=== PATIENT | female | born 1940 | race Caucasian/White ===

== ENCOUNTER 2017-11-19 09:25 | Day surgery (SDC) | payer MEDICARE, SELFPAY ==
[2017-11-19 09:49] VITALS: BP 111/73; PULSE 85; RESP 16; TEMP 36.6; O2SAT 100; BMI 22.6
--- NOTE | 2017-11-19 10:39 | PCM.HP.STD ---
Problem List (1) History of colon polyps Status: Acute History of Present Illness Date of Admission: 11/19/17 The patient is a 77 year old F with a history of colon polyps. Her last colonoscopy was greater than 5 years ago. She presents today for colonoscopy. Past Medical History Allergies narcotics Allergy (Uncoded 11/13/17 09:28) Nausea surgical tape Adverse Reaction (Uncoded 11/13/17 09:28) tears skin Home Medications: Ambulatory Orders Medication Instructions Recorded Atorvastatin Calcium [Lipitor] 10 mg PO QHS 11/13/17 Calcium Carbonate/Vitamin D3 2 each PO DAILY 11/13/17 [Calcium 600 with Vit D Chew Tb] CycloSPORINE Ophthalmic [Restasis 1 drop EACH EYE BID 11/13/17 Ophthalmic] Fish Oil/Dha/Epa [Fish Oil 1,200 1 each PO DAILY 11/13/17 mg Fish Oil] Fresh Coat 1 drop EACHEYE 4X/DAY 11/13/17 Multivit with Calcium,Iron,Min 1 each PO DAILY 11/13/17 [Multiple Vitamins For Women] Naproxen Sodium [Aleve] 220 mg PO DAILY 11/13/17 Smoking Status: Never smoker - *Family History Maternal History Items: No pertinent history Review of Systems Cardiovascular: Denies: Chest Pain, Chest Pressure, Chest Tightness, Palpitations Respiratory: Denies: Cough, Hemoptysis, Shortness of breath at rest, Shortness of breath upon exertion, Wheezing Gastrointestinal: Denies: Abdominal Pain, Constipation, Diarrhea, Hematemesis, Nausea, Melena, Vomiting VTE Information - Inpt Only VTE Present on Admission: No VTE Mechan Device Prophylaxis: None VTE Pharm Prophylaxis ordered?: No Reason prophylaxis not ordered:: Treatment Not Indicated Patient Problems: Active and Suspected Problems History of colon polyps (Acute) - Physical Exam Lungs: Clear to auscultation Cardiovascular: Regular rate, Regular Rhythm, No murmurs Abdomen: Bowel Sounds Present, Soft, Non Tender, Non-Distended Vital Signs Temp Pulse Resp BP Pulse Ox 97.8 F 85 16 111/73 100 11/19/17 09:49 11/19/17 09:49 11/19/17 09:49 11/19/17 09:49 11/19/17 09:49 Oxygen Delivery Method Room Air Weight: 123 lb 14.397 oz Body Mass Index (BMI) 22.6 Assessment/Plan Active and Suspected Problems History of colon polyps (Acute) The plan is to perform a colonoscopy.
--- NOTE | 2017-11-19 10:42 | PCM.OPRPT ---
Problem List (1) History of colon polyps Status: Acute Report of Operation Date of Procedure: 11/19/17 Pre-Operative Diagnosis: z86.010 personal history of colonic polyps Post-Operative Diagnosis: Same Surgery/Procedure Performed:: [id number] colonoscopy Anesthesiologist: Jamison Curtis Description of Procedure: Patient was brought into the endoscopy suite. Placed in the left lateral decubitus position. Given graded anesthesia. Scope was inserted into the rectum. The scope was directed through the sigmoid colon, descending colon, transverse colon, ascending colon, to the cecum. Operative findings: 1. Cecum: Normal appearance no mass lesions normal ileocecal valve. 2. Ascending colon: Normal appearance no mass lesions 3. Transverse colon: Normal appearance no mass lesions. 4. Descending colon: Normal appearance no mass lesions. 5. Sigmoid colon: Normal appearance no mass lesions. 6. Rectum: Normal appearance no mass lesions retroflexion showed some minimal internal hemorrhoidal disease. Scope was withdrawn digital rectal exam was performed showing a smooth anus with no masses. Patient will need to have another colonoscopy in 10 years. She states she has no family history of colon cancer - Admit VTE Documentation VTE Present on Admission: No VTE Mechan Device Prophylaxis: None VTE Pharm Prophylaxis ordered?: No Reason prophylaxis not ordered:: Treatment Not Indicated
[2017-11-19 10:44] VITALS: BP 100/60; BP 111/73; PULSE 88; RESP 16; TEMP 35.7; O2SAT 99
--- NOTE | 2017-11-19 10:45 | OP.PCM_ITS ---
Problem List (1) History of colon polyps Status: Acute Report of Operation Date of Procedure: 11/19/17 Pre-Operative Diagnosis: z86.010 personal history of colonic polyps Post-Operative Diagnosis: Same Surgery/Procedure Performed:: [id number] colonoscopy Anesthesiologist: Jamison Curtis Description of Procedure: Patient was brought into the endoscopy suite. Placed in the left lateral decubitus position. Given graded anesthesia. Scope was inserted into the rectum. The scope was directed through the sigmoid colon, descending colon, transverse colon, ascending colon, to the cecum. Operative findings: 1. Cecum: Normal appearance no mass lesions normal ileocecal valve. 2. Ascending colon: Normal appearance no mass lesions 3. Transverse colon: Normal appearance no mass lesions. 4. Descending colon: Normal appearance no mass lesions. 5. Sigmoid colon: Normal appearance no mass lesions. 6. Rectum: Normal appearance no mass lesions retroflexion showed some minimal internal hemorrhoidal disease. Scope was withdrawn digital rectal exam was performed showing a smooth anus with no masses. Patient will need to have another colonoscopy in 10 years. She states she has no family history of colon cancer - Admit VTE Documentation VTE Present on Admission: No VTE Mechan Device Prophylaxis: None VTE Pharm Prophylaxis ordered?: No Reason prophylaxis not ordered:: Treatment Not Indicated
[2017-11-19 10:50] VITALS: BP 106/57; BP 111/73; PULSE 85; RESP 16; O2SAT 99
[2017-11-19 10:55] VITALS: BP 111/73; BP 111/84; PULSE 88; RESP 16; O2SAT 100
[2017-11-19 11:00] VITALS: BP 111/73; BP 126/63; PULSE 80; RESP 16; TEMP 35.7; O2SAT 100
[2017-11-19 11:18] VITALS: BP 111/73
== END 2017-11-19 11:34 | disposition home or self-care (01) ==
LOC: EN 09:27 → AC 09:30 → ACINP 09:36
PROVIDERS: Family Provider Family Medicine; PCP Family Medicine; Visit Provider Surgery
PROC: 0DJD8ZZ Inspection of Lower Intestinal Tract, Via Natural or Artificial Opening Endoscopic (ICD-10-PCS; CPT 45378; principal; 2017-11-19 10:55)
DX: K64.8 Other hemorrhoids (principal); Z86.010 Personal history of colon polyps; M19.90 Unspecified osteoarthritis, unspecified site; E78.00 Pure hypercholesterolemia, unspecified; Z79.899 Other long term (current) drug therapy
CPT/HCPCS: G0121; J7120; J1610

== ENCOUNTER → 2018-09-08 11:15 | Outpatient (CLI) | payer MEDICARE, SELFPAY ==
[2018-09-08 16:24] LABS: Anion Gap 8 (5-15); BUN 20 mg/dL (7-18); BUN/Creat Ratio 30.9 RATIO (10-20); Chloride 108 mmol/L (98-107); Creatinine, Serum 0.65 mg/dL (0.55-1.02); EST Glomerular Filtration Rate 95 mL/min (>60); Est Glom Filt Rate - Afr Amer 114 mL/min (>60); Glucose 100 mg/dL (74-106); Potassium 3.9 mmol/L (3.5-5.1); Sodium Level 142 mmol/L (136-145); Thyroid Stim Hormone (TSH) 1.73 uIU/mL (0.358-3.74)
[2018-09-08 17:38] LABS: Absolute Lymphocyte Count 1.09 X10^3/ul (0.83-4.51); Absolute Neutrophil Count 2.5 X10^3/uL (2.0-7.7); Basophil# 0.03 X10^3/uL; Basophil% 0.7 % (0-1); Eosinophil# 0.05 X10^3/uL; Eosinophils% 1.2 % (0-5); Hematocrit 43.7 % (37-47); Hemoglobin 13.9 g/dl (12.0-15.0); Lymphocyte # 1.09 X10^3/ul (4.0); Mean Corp Hgb Conc 31.8 g/gl (32-36); Mean Corpuscular Hgb 32.9 pg (27.0-32.0); Mean Corpuscular Volume 103.3 fL (81-99); Mean Platelet Vol. 12.2 fl (6.2-12.0); Monocyte# 0.33 X10^3/uL; Monocyte% 8.2 % (0-10); Neutrophil # 2.52 X10^3/uL (2.7-7.7); Neutrophil % 62.7 % (47-70); Platelet Count 169 K/mm3 (150-450); RBC Distribution Width CV 12.7 % (11.6-14.6); RBC Distribution Width SD 46.8 fl (35.1-43.9); Red Blood Count 4.23 M/mm3 (4.2-5.4)
[2018-09-08 17:39] LABS: POSITIVE COUNT NO; POSITIVE DIFFERENTIAL NO; POSITIVE MORPHOLOGY NO
== END ==
PROVIDERS: Family Provider Family Medicine; PCP Family Medicine; Visit Provider Family Medicine
DX: E11.9 Type 2 diabetes mellitus without complications (principal); E78.5 Hyperlipidemia, unspecified
CPT/HCPCS: 36415; 80048; 84443; 85025

== ENCOUNTER → 2018-11-08 | Outpatient (CLI) | payer MEDICARE, SELFPAY ==
--- NOTE | 2018-11-08 09:40 | BI_ITS ---
MAMMOGRAPHY - BILATERAL SCREENING REASON FOR EXAM: Female, 78 years old. Routine annual screening examination. PERTINENT HISTORY: Non-contributory. TECHNIQUE: Digital bilateral breast ayaka (3D mammographic acquisition) in the CC and MLO projections. 2-D mediolateral oblique (MLO) and craniocaudad (CC) views of both breasts were obtained. CAD: Full Field Digital Mammography with Computer Added Detection was performed. COMPARISON: Comparison is made with prior examination dated August 10, 2017. FINDINGS: Breast Composition: The breasts are heterogeneously dense, which may obscure small masses. There are no dominant masses or suspicious calcifications. No other significant abnormalities are identified. There has been no significant change since the prior study. BI/SCREENING MAMM (CAD), BILAT IMPRESSION: Stable bilateral screening mammogram. Yearly follow-up mammogram recommended. (A) ASSESSMENT CATEGORY: BIRADS Category 1: Negative. A letter regarding these results will be sent to the patient by the facility within 30 days. Approximately 10% of breast cancers are not detected by mammography. A normal mammogram should not delay biopsy of a clinically suspicious abnormality. [id number] Electronically Signed: Kuldeep Shea, at 11:14 EDT , Service support ,
== END | disposition home or self-care (01) ==
PROVIDERS: Family Provider Family Medicine; PCP Family Medicine; Referring Provider Obstetrics & Gynecology; Visit Provider Obstetrics & Gynecology
DX: Z12.31 Encounter for screening mammogram for malignant neoplasm of breast (principal)
CPT/HCPCS: 77063; 77067

== ENCOUNTER → 2019-09-12 09:31 | Outpatient (CLI) | payer MEDICARE, SELFPAY ==
[2019-09-12 12:21] LABS: Absolute Lymphocyte Count 1.04 X10^3/uL (0.83-4.51); Basophil# 0.04 X10^3/uL; Basophil% 0.9 % (0-1); Eosinophil# 0.08 X10^3/uL; Eosinophils% 1.8 % (0-5); Hematocrit 40.6 % (37-47); Hemoglobin 13.3 g/dL (12.0-15.0); Lymphocyte # 1.04 X10^3/ul (4.0); Lymphocyte % 23.1 % (19-41); Mean Corp Hgb Conc 32.8 g/dL (32-36); Mean Corpuscular Hgb 33.6 pg (27.0-32.0); Mean Corpuscular Volume 102.5 fL (81-99); Mean Platelet Vol. 12.3 fl (6.2-12.0); Monocyte# 0.33 X10^3/uL; Monocyte% 7.3 % (0-10); NRBC Flagged by Analyzer 0 % (0-5); Neutrophil # 3.01 X10^3/uL (2.7-7.7); Neutrophil % 66.9 % (47-70); Platelet Count 172 K/mm3 (150-450); RBC Distribution Width CV 12.2 % (11.6-14.6); RBC Distribution Width SD 46.4 fl (35.1-43.9); Red Blood Count 3.96 M/mm3 (4.2-5.4); White Blood Count 4.5 K/mm3 (4.4-11.0)
[2019-09-12 12:57] LABS: BUN 22 mg/dL (7-18); Creatinine, Serum 0.72 mg/dL (0.55-1.02); Glucose 102 mg/dL (74-106)
[2019-09-12 12:58] LABS: ALB/GLOB Ratio 1.2 RATIO (0.9-2.4); AST(SGOT) 24 U/L (15-37); Alanine Aminotransfer ALT/SGPT 34 U/L (13-56); Albumin, Serum 3.9 g/dL (3.2-5.0); Alkaline Phosphatase 64 U/L (45-117); Anion Gap 4 (5-15); BUN/Creat Ratio 30.7 RATIO (10-20); Calcium,Total 9.3 mg/dL (8.5-10.1); Chloride 106 mmol/L (98-107); EST Glomerular Filtration Rate 84 mL/min (>60); Est Glom Filt Rate - Afr Amer 102 mL/min (>60); Globulin 3.2 g/dL (2.2-4.2); Potassium 3.8 mmol/L (3.5-5.1); Protein, Total 7.1 g/dL (6.4-8.2); Sodium Level 139 mmol/L (136-145); Thyroid Stim Hormone (TSH) 2.05 uIU/mL (0.358-3.74)
== END ==
PROVIDERS: PCP Family Medicine; Visit Provider Family Medicine
DX: E11.9 Type 2 diabetes mellitus without complications (principal); E78.5 Hyperlipidemia, unspecified
CPT/HCPCS: 36415; 80053; 84443; 85025

== ENCOUNTER → 2020-01-02 08:12 | Outpatient (CLI) | payer MEDICARE, SELFPAY ==
--- NOTE | 2020-01-02 08:13 | BI_ITS ---
MAMMOGRAPHY - BILATERAL SCREENING REASON FOR EXAM: Female, 79 years old. Routine annual screening examination. PERTINENT HISTORY: Non-contributory. TECHNIQUE: Digital bilateral breast pablo (3D mammographic acquisition) in the CC and MLO projections. 2-D mediolateral oblique (MLO) and craniocaudad (CC) views of both breasts were obtained. CAD: Full Field Digital Mammography with Computer Added Detection was performed. COMPARISON: Comparison is made with prior examination dated November 08, 2018. FINDINGS: Breast Composition: The breasts are heterogeneously dense, which may obscure small masses. There are no dominant masses or suspicious calcifications. Stable asymmetry of breast tissue with more breast tissue is seen in the upper lateral aspect of the left breast. Correlation with ultrasound of the upper outer quadrant of the left breast is recommended. No other significant abnormalities are identified. There has been no significant change since the prior study. BI/SCREEN MAMM (CAD) W/PABLO BILAT IMPRESSION: Stable bilateral screening mammogram. Correlation with a breast ultrasound of the upper outer quadrant of the left breast is recommended. ASSESSMENT CATEGORY: BIRADS Category 0: Incomplete. Need additional imaging evaluation. A letter regarding these results will be sent to the patient by the facility within 30 days. Approximately 10% of breast cancers are not detected by mammography. A normal mammogram should not delay biopsy of a clinically suspicious abnormality. [id number] Electronically Signed: Kuldeep Shea, at 9:20 EDT , Service support ,
--- NOTE | 2020-01-02 12:51 | US_ITS ---
STUDY: ULTRASOUND BREAST - LEFT REASON FOR EXAM: Female, 79 years old. Abnormal screening mammogram. TECHNIQUE: Axial and longitudinal images of the LEFT breast were performed with a high resolution ultrasound transducer. # OF IMAGES: 28 COMPARISON: Comparison is made with prior mammogram done earlier in the day. FINDINGS: LEFT Breast: The upper outer quadrant of the left breast was examined by ultrasound. There is homogeneous from glandular tissue. No sonographic abnormality is seen. US/Breast Limited Unilateral IMPRESSION: No sonographic abnormality is seen. ASSESSMENT CATEGORY: BIRADS Category 1: Negative. A letter regarding these results will be sent to the patient by the facility within 30 days. Electronically Signed: Kuldeep Shea, at 13:20 EDT , Service support ,
== END ==
PROVIDERS: Family Provider Family Medicine; PCP Family Medicine; Referring Provider Obstetrics & Gynecology; Visit Provider Obstetrics & Gynecology
DX: Z12.31 Encounter for screening mammogram for malignant neoplasm of breast (principal); R92.8 Other abnormal and inconclusive findings on diagnostic imaging of breast
CPT/HCPCS: 76642; 77063; 77067

== ENCOUNTER → 2020-07-10 09:19 | Outpatient (CLI) | payer MEDICARE, SELFPAY ==
[2020-07-10 12:34] LABS: ALB/GLOB Ratio 1.1 RATIO (0.9-2.4); AST(SGOT) 35 U/L (15-37); Alanine Aminotransfer ALT/SGPT 47 U/L (13-56); Albumin, Serum 3.9 g/dL (3.2-5.0); Alkaline Phosphatase 78 U/L (45-117); Anion Gap 5 (5-15); BUN 20 mg/dL (7-18); BUN/Creat Ratio 26.4 RATIO (10-20); Calcium,Total 9.2 mg/dL (8.5-10.1); Chloride 104 mmol/L (98-107); Cholesterol 235 mg/dL (200); Creatinine, Serum 0.76 mg/dL (0.55-1.02); EST Glomerular Filtration Rate 78 mL/min (>60); Est Glom Filt Rate - Afr Amer 95 mL/min (>60); Globulin 3.4 g/dL (2.2-4.2); Glucose 104 mg/dL (74-106); High Density Lipoprotein 107 mg/dL; Protein, Total 7.3 g/dL (6.4-8.2); Sodium Level 138 mmol/L (136-145); Thyroid Stim Hormone (TSH) 2.38 uIU/mL (0.358-3.74); Triglycerides 85 mg/dL; Very Low Density Lipoprotein 17 mg/dL (5-40)
== END ==
PROVIDERS: PCP Family Medicine; Visit Provider Family Medicine
DX: E78.5 Hyperlipidemia, unspecified (principal); R73.01 Impaired fasting glucose
CPT/HCPCS: 36415; 80053; 80061; 84443

== ENCOUNTER → 2020-12-17 15:13 | Outpatient (CLI) | payer MEDICARE, SELFPAY ==
[2020-11-30 09:23] VITALS: BMI 21.1
--- NOTE | 2020-12-17 15:14 | MRI_ITS ---
STUDY: MRI LUMBAR SPINE WITHOUT CONTRAST REASON FOR EXAM: Female, 80 years old. Worsening lower back pain and left radiculopathy x6 months. TECHNIQUE: Standardized fat and water weighted pulse sequences were obtained in the sagittal and axial planes. COMPARISON: Lumbar spine radiographs 11/30/2020. FINDINGS: T9-T10: (Sagittal only). Normal endplates. Mild disc space height narrowing. No ventral extradural defect. Normal central canal and bilateral intervertebral neural foramina. T10-T11: (Sagittal only). Normal endplates. Normal disc height and morphology. No ventral extradural defect. Normal central canal and bilateral intervertebral neural foramina. T11-T12: (Sagittal only). Normal endplates. Ventral extradural defect is posterior bulging disc. Normal central canal and bilateral intervertebral neural foramina. T12-L1: (Sagittal only). Normal endplates. Normal disc height, hydration and morphology. No ventral extradural defect. Normal central canal and bilateral intervertebral neural foramina. Normal lumbar lordosis. Moderate levoscoliosis of the lumbar spine. Normal conus medullaris that terminates at the lower T12 vertebral body level. L1-2: Normal endplates. Normal disc height and morphology. Normal central canal and bilateral lateral recesses. Normal facet joints. Normal bilateral intervertebral neural foramina. L2-3: Anterior and right lateral marginal spurs. Pronounced right-sided disc space height narrowing. Normal central canal and bilateral lateral recesses. Moderate right degenerative facet arthropathy. Mild left degenerative facet arthropathy. Mild stenosis of the right intervertebral neural foramen. Normal left intervertebral neural foramen. L3-4: Anterior and right lateral marginal spurs. Grade 1 left lateral degenerative subluxation of L3 on L4. Ventral extradural defect is due to posterior marginal spur. Normal central canal and bilateral lateral recesses. Moderate right degenerative facet arthropathy. Mild to moderate left degenerative facet arthropathy. Moderate stenosis of the right intervertebral neural foramen. Mild stenosis of the left intervertebral neural foramen. L4-5: Anterior and left lateral marginal spurs. Mild MODIC type I degenerative vertebral marrow edema underneath the left side of the vertebral endplates. Pronounced left-sided disc space height narrowing. Mild central canal stenosis with an AP canal diameter of 10 mm. Prominent left posterior ligamentum flavum hypertrophy. Normal bilateral lateral recesses. Moderate left iterative facet arthropathy. Mild right degenerative facet arthropathy. Moderate stenosis of the left intervertebral neural foramen. Normal right intervertebral neural foramen. L5-S1: Normal endplates. Normal disc height. Small posterior annular bulging disc. Mild central canal stenosis with an AP canal diameter of 10.8 mm. Normal bilateral lateral recesses. Moderately pronounced left degenerative facet arthropathy. Mild right degenerative facet arthropathy. Mild stenosis of the left intervertebral neural foramen. Normal right intervertebral neural foramen. Normal visualized sacral ala. Normal visualized paraspinous soft tissue structures. MRI/Spine Lumbar (Routine) IMPRESSION: 1. Pronounced left-sided L4-L5 disc space height narrowing with mild MODIC type I degenerative intervertebral osteochondritis underneath the left side of the vertebral endplates, moderate stenosis of the left intervertebral neural foramen and mild central canal stenosis. 2. Moderate levoscoliosis of the lumbar spine with grade 1 left lateral degenerative subluxation of L3 on L4 and moderate stenosis of the right L3-L4 intervertebral neural foramen. 3. Mild central canal stenosis at L5-S1 disc space level with small posterior annular bulging disc and moderately pronounced left L5-S1 degenerative facet arthropathy. 4. No MRI evidence of lumbar extruded disc fragment. Electronically Signed: Zeferino Pierce MD at 11:58 EDT , Service support ,
== END ==
PROVIDERS: PCP Family Medicine; Referring Provider Orthopaedic Surgery; Visit Provider Orthopaedic Surgery
DX: M54.16 Radiculopathy, lumbar region (principal); M54.5 Low back pain
CPT/HCPCS: 72148

== ENCOUNTER → 2021-01-09 09:53 | Outpatient (CLI) | payer MEDICARE, SELFPAY ==
[2020-11-30 09:23] VITALS: BMI 21.1
[2021-01-04 09:16] VITALS: BMI 21.1
--- NOTE | 2021-01-09 10:04 | BI_ITS ---
MAMMOGRAPHY - BILATERAL SCREENING REASON FOR EXAM: Female, 80 years old. Routine annual screening examination. PERTINENT HISTORY: Non-contributory. TECHNIQUE: Digital bilateral breast pablo (3D mammographic acquisition) in the CC and MLO projections. 2-D mediolateral oblique (MLO) and craniocaudad (CC) views of both breasts were obtained. CAD: Full Field Digital Mammography with Computer Added Detection was performed. COMPARISON: Comparison is made with prior study dated 11/08/2018 and 01/02/2020. FINDINGS: Breast Composition: The breasts are heterogeneously dense, which may obscure small masses. There are no dominant masses or suspicious calcifications. There is stable asymmetry of breast tissue with more breast tissue is seen in the upper lateral aspect of the left breast as compared to the right breast. This is unchanged. No other significant abnormalities are identified. There has been no significant change since the prior study. BI/SCRN MAMM (CAD)W/PABLO BILAT IMPRESSION: Stable bilateral screening mammogram. Yearly follow-up mammogram recommended. (A) ASSESSMENT CATEGORY: BIRADS Category 2: Benign. A letter regarding these results will be sent to the patient by the facility within 30 days. Approximately 10% of breast cancers are not detected by mammography. A normal mammogram should not delay biopsy of a clinically suspicious abnormality. [id number] Electronically Signed: Kuldeep Shea MD at 11:07 EDT , Service support ,
== END ==
PROVIDERS: PCP Family Medicine; Referring Provider Obstetrics & Gynecology; Visit Provider Obstetrics & Gynecology
DX: Z12.31 Encounter for screening mammogram for malignant neoplasm of breast (principal)
CPT/HCPCS: 77063; 77067

== ENCOUNTER 2021-01-25 15:00 | Outpatient (RCR) | payer MEDICARE, SELFPAY ==
[2021-01-04 09:16] VITALS: BMI 21.1
--- NOTE | 2021-01-16 08:55 | HP.PTEVAL_ITS ---
Patient's Visit Information YIN LUNA is a 80 year old F referred to Physical Therapy by Dr. Jenniffer Stinson MD with a diagnosis of LOW BCAK PAIN,SACROLITIS,SPINAL STENOSIS. Date of Evaluation: 01/16/21 Physical Therapist: Teddy Brown, PT, Cert MDT, OCS - Visit Plan Frequency: 2x /Week Duration: 4 Weeks Plan: PT INTERVENTIONS AQUATIC THERAPY LUMBAR ROM,LE FLEXABLITY,DLS ,POSTURAL EX'S AND LE STRENGTHENING,PATIENT EDUCATION - Subjective This 80 y/o female presents to physical therapy with lumbar pain. Patient has had lumbar pain many years which has progressed past several years. Patient seen DR had MRI sowed stenosis and DDD, Recommended Aquatic PT. Patient has symmetrical LBP catching and ache. Patient denies parathesia/tingling. Bowel/bladder -. Coughing/sneezing-. Aggravating factors bending, lifting extended walking and standing affects housework tasks. Alleviating factors movements. and sitting. No abnormal night pain. Patient does do some exercises. Patient has had no prior treatment. No h/o trauma. Patient pain affects QOL and function. SOCIAL: . VOCATION: retired - Pain Bilateral Back Pain Intensity (Out of 10): 4 Pain Intensity Range: 10 - Objective POSTURE: mild forward posture. PALAPTION: unremarkable. NEURO: intact, reflexes L3-4 ,L5-S1,L4-L5 1/3. SYMMTIRIES : align. FLEXABLITY: hams mild tight. MMT: quads/hams 4/5,hip flexion 4-/5,abd 4-/5,ankle 4/5. LUMBAR ROM: flexion WFL loss, extension min/mod loss, side glides mild loss - Special Tests L/S Slump test left side: Negative L/S Slump test right side: Negative L/S Left Straight Leg Raise: Negative L/S Right Straight Leg Raise: Negative Lumbar Standing: Flexion - Mechanical Response: No effect Lumbar Standing: Flexion - Symptoms During Testing: No effect Lumbar Standing: Flexion - Symptoms After Testing: No effect Lumbar Standing: Extension - Mechanical Response: No effect Lumbar Standing: Extension - Symptoms During Testing: Increases Lumbar Standing: Extension - Symptoms After Testing: No better Lumbar Standing: Right Side Glides - Mechanical Response: No effect Lumbar Standing: Right Side [place] - Symptoms During Testing: No effect Lumbar Standing: Right Side [place] - Symptoms After Testing: No effect Lumbar Standing: Left Side [place] - Mechanical Response: No effect Lumbar Standing: Left Side [place] - Symptoms During Testing: No effect Lumbar Standing: Left Side [place] - Symptoms After Testing: No effect Lumbar Lying: Flexion - Mechanical Response: No effect Lumbar Lying: Flexion - Symptoms During Testing: Decreases Lumbar Lying: Flexion - Symptoms After Testing: Better - Goals Goal 1:: Patient to be I with HEP Goal Time Frame: 4-6 Weeks Goal 2:: Improve posture/body mechanics for ADL's Goal Time Frame: 4-6 Weeks Goal 3:: Patient to improve lumbar ROM for function of recovery Goal Time Frame: 4-6 Weeks Goal 4:: Patient to decrease lumbar pain by 50% or > to improve function with ADL'S Goal Time Frame: 4-6 Weeks Goal 5:: Patient to improve back owestry score by 5 points or> to improve QOL. Goal Time Frame: 4-6 Weeks - Rehabilitation Potential Physical Therapy Diagnosis: This patient has symmetrical with pain with movement test and daily function thus benefit from skilled PT . Rehabilitation Potential: Good - Anticipated Interventions Patient/Client Instruction: Educate patient on: Condition, Plan of Care For the Purpose of:: To decrease pain, To increase ROM, To improve ability to perform ADL's, To increase tolerance to activity/condition/position, To improve performance and independence with ADL's, To improve ability of physical actions for home/community/work/leisure, To improve health of tissue, To decrease soft tissue restriction, To increase flexibility/ROM, To reduce risk of recurrence, To improve ability to perform tasks related to life management Therapeutic Exercise to Include: Strength training, Postural training, Flexibilty training, In an aquatic setting, Active ROM, Dynamic Lumbar Stabilization Comment: BLE For the Purpose of:: To decrease pain, To increase ROM, To improve muscle performance and motor function, To improve ability to perform ADL's, To increase tolerance to activity/condition/position, To improve ability of physical actions for home/community/work/leisure, To decrease soft tissue restriction, To increase flexibility/ROM, To reduce risk of recurrence, To improve ability to perform tasks related to life management Thank you for the opportunity to evaluate your patient. For Medicare and Medicare HMO plans, please review the plan of care and approve it. It will need to be FAXED BACK to us at [phone] for Medicare purposes. For Medicare only, by signing this I certify the plan of care. Please let me know if there are questions or concerns regarding this plan of care. Physician Signature: Date:
--- NOTE | 2021-05-07 09:54 | HP.PT.NRP ---
YIN LUNA was seen in my office for initial evaluation on 01/16/21. The following Plan of Care was established for this patient: Initial Frequency: 2x /Week Initial Duration: 4 Weeks Patient/Client Instruction: Educate patient on: Condition, Plan of Care For the Purpose of:: To decrease pain, To increase ROM, To improve ability to perform ADL's, To increase tolerance to activity/condition/position, To improve performance and independence with ADL's, To improve ability of physical actions for home/community/work/leisure, To improve health of tissue, To decrease soft tissue restriction, To increase flexibility/ROM, To reduce risk of recurrence, To improve ability to perform tasks related to life management Therapeutic Exercise to Include: Strength training, Postural training, Flexibilty training, In an aquatic setting, Active ROM, Dynamic Lumbar Stabilization For the Purpose of:: To decrease pain, To increase ROM, To improve muscle performance and motor function, To improve ability to perform ADL's, To increase tolerance to activity/condition/position, To improve ability of physical actions for home/community/work/leisure, To decrease soft tissue restriction, To increase flexibility/ROM, To reduce risk of recurrence, To improve ability to perform tasks related to life management This patient was last seen in our office . Pertinent comments regarding their Physical therapy will appear below: Patient was seen for PT for back pain for Aquatic therapy . At this point I will be discontinuing this patient from physical therapy. I would be happy to see this patient again in the future if found appropriate by the physician. Thank you! Teddy Brown, PT, Cert MDT, OCS Balance/Gait/Functional tests - Balance/Special Test Scores Oswestry Low Back Score: 15
== END 2021-01-25 19:00 | disposition home or self-care (01) ==
LOC: PT 15:00
PROVIDERS: PCP Family Medicine; Referring Provider Anesthesiology; Visit Provider Anesthesiology
DX: M46.1 Sacroiliitis, not elsewhere classified (principal); M48.01 Spinal stenosis, occipito-atlanto-axial region
CPT/HCPCS: 97113; 97162

== ENCOUNTER → 2021-07-12 10:40 | Outpatient (CLI) | payer MEDICARE, SELFPAY ==
[2021-07-12 12:51] LABS: ALB/GLOB Ratio 1.2 RATIO (0.9-2.4); AST(SGOT) 26 U/L (15-37); Alanine Aminotransfer ALT/SGPT 40 U/L (13-56); Albumin, Serum 4.1 g/dL (3.2-5.0); Alkaline Phosphatase 69 U/L (45-117); Anion Gap 6 (5-15); BUN 25 mg/dL (7-18); BUN/Creat Ratio 34.2 RATIO (10-20); Calcium,Total 9.2 mg/dL (8.5-10.1); Chloride 106 mmol/L (98-107); Cholesterol 230 mg/dL (200); Creatinine, Serum 0.73 mg/dL (0.55-1.02); EST Glomerular Filtration Rate 82 mL/min (>60); Est Glom Filt Rate - Afr Amer 99 mL/min (>60); Globulin 3.4 g/dL (2.2-4.2); Glucose 106 mg/dL (74-106); High Density Lipoprotein 114 mg/dL; Potassium 4.2 mmol/L (3.5-5.1); Protein, Total 7.5 g/dL (6.4-8.2); Sodium Level 141 mmol/L (136-145); Triglycerides 76 mg/dL; Very Low Density Lipoprotein 15 mg/dL (5-40)
== END ==
PROVIDERS: PCP Family Medicine; Referring Provider Family Medicine; Visit Provider Family Medicine
DX: R73.01 Impaired fasting glucose (principal); E78.5 Hyperlipidemia, unspecified
CPT/HCPCS: 36415; 80053; 80061; 84443

== ENCOUNTER 2021-11-11 12:50 | Outpatient (CLI) | payer MEDICARE, SELFPAY ==
--- NOTE | 2021-11-11 13:33 | MRI_ITS ---
EXAM: MR HEAD WITHOUT AND WITH INTRAVENOUS CONTRAST, INTERNAL AUDITORY CANAL PROTOCOL CLINICAL INDICATION: DIZZINESS TECHNIQUE: Multiplanar and multisequence MR images of the internal auditory canal were obtained without and with intravenous contrast. This report was created using [employer] report [employer] technology. CONTRAST: IV 11cm DOTAREM COMPARISON: None. FINDINGS: CRANIAL NERVES: Unremarkable. No mass. No abnormal enhancement. COCHLEA AND SEMICIRCULAR CANALS: Unremarkable. CEREBELLOPONTINE ANGLES: Unremarkable. No mass. BRAIN AND EXTRA-AXIAL SPACES: Unremarkable as visualized. No intra- or extra-axial hemorrhage. No intracranial mass or mass effect. There is preservation of the licona/white matter interface. Posterior fossa structures are unremarkable. Ventricles are appropriate for age. No hydrocephalus. Basal cisterns are patent. BONES/JOINTS: Unremarkable. No discrete lytic or blastic abnormalities. SINUSES: Unremarkable as visualized. Clear. MASTOID AIR CELLS: Unremarkable as visualized. Clear. ORBITS: Unremarkable as visualized. Both globes, extraocular muscles, optic nerves and retrobulbar fat appear unremarkable. MRI/Brain W/WO Contrast IMPRESSION: Unremarkable MRI of the internal auditory canal. Electronically Signed: Rashad Gallardo MD at 19:14 EDT ,
[2021-11-11 13:51] LABS: CREATININE FINGERSTICK 0.6 mg/dL (0.55-1.02); EGFR FINGERSTICK > 60.0000 mL/min (>60)
== END 2021-11-11 23:59 | disposition home or self-care (01) ==
LOC: MRI 12:53
PROVIDERS: PCP Family Medicine; Referring Provider Otolaryngology; Visit Provider Otolaryngology
DX: R42 Dizziness and giddiness (principal)
CPT/HCPCS: 70553; A9575

== ENCOUNTER → 2022-01-10 | Outpatient (CLI) | payer MEDICARE, SELFPAY ==
--- NOTE | 2022-01-10 09:49 | BI_ITS ---
MAMMOGRAPHY - BILATERAL SCREENING REASON FOR EXAM: Female, 81 years old. Routine annual screening examination. PERTINENT HISTORY: Non-contributory. TECHNIQUE: Digital bilateral breast pablo (3D mammographic acquisition) in the CC and MLO projections. 2-D mediolateral oblique (MLO) and craniocaudad (CC) views of both breasts were obtained. CAD: Full Field Digital Mammography with Computer Added Detection was performed. COMPARISON: Mammogram from 01/09/2021, 01/02/2020, 11/08/2018. Left breast diagnostic ultrasound from 01/02/2020. FINDINGS: Breast Composition: The breasts are heterogeneously dense, which may obscure small masses. There are no dominant masses or suspicious calcifications. Stable asymmetry of breast tissue in the left upper breast dating back to 11/08/2018. No other significant abnormalities are identified. There has been no significant change since the prior study. BI/SCRN MAMM (CAD)W/PABLO BILAT IMPRESSION: Stable bilateral screening mammogram. Yearly follow-up mammogram recommended. (A) ASSESSMENT CATEGORY: BIRADS Category 2: Benign. A letter regarding these results will be sent to the patient by the facility within 30 days. Approximately 10% of breast cancers are not detected by mammography. A normal mammogram should not delay biopsy of a clinically suspicious abnormality. [id number] Electronically Signed: Jori Taylor, at 16:16 EDT ,
== END | disposition home or self-care (01) ==
LOC: OPBI 09:47
PROVIDERS: PCP Family Medicine; Referring Provider Advanced Practice Midwife; Visit Provider Advanced Practice Midwife
DX: Z12.31 Encounter for screening mammogram for malignant neoplasm of breast (principal)
CPT/HCPCS: 77063; 77067

== ENCOUNTER → 2022-01-27 | Outpatient (CLI) | payer MEDICARE, SELFPAY ==
[2022-01-27 12:37] LABS: Hemoglobin 13.8 g/dL (12.0-15.0); Mean Corp Hgb Conc 32.1 g/dL (32-36); Mean Corpuscular Volume 102.9 fL (81-99); Mean Platelet Vol. 12.3 fl (6.2-12.0); Platelet Count 202 K/mm3 (150-450); RBC Distribution Width CV 12.6 % (11.6-14.6); RBC Distribution Width SD 47.9 fl (35.1-43.9); Red Blood Count 4.18 M/mm3 (4.2-5.4); White Blood Count 5.1 K/mm3 (4.4-11.0)
[2022-01-27 12:56] LABS: Vitamin B12 1008 pg/mL (211-911)
[2022-01-27 13:47] LABS: ALB/GLOB Ratio 1.2 RATIO (0.9-2.4); AST(SGOT) 28 U/L (15-37); Alanine Aminotransfer ALT/SGPT 37 U/L (13-56); Albumin, Serum 3.9 g/dL (3.2-5.0); Alkaline Phosphatase 72 U/L (45-117); Anion Gap 9 (5-15); BUN 23 mg/dL (7-18); BUN/Creat Ratio 32.2 RATIO (10-20); Calcium,Total 9.6 mg/dL (8.5-10.1); Chloride 104 mmol/L (98-107); Creatinine, Serum 0.72 mg/dL (0.55-1.02); EST Glomerular Filtration Rate 84 mL/min (>60); Est Glom Filt Rate - Afr Amer 101 mL/min (>60); Globulin 3.3 g/dL (2.2-4.2); Glucose 107 mg/dL (74-106); Potassium 4.2 mmol/L (3.5-5.1); Protein, Total 7.2 g/dL (6.4-8.2); Sodium Level 141 mmol/L (136-145)
== END | disposition home or self-care (01) ==
PROVIDERS: PCP Family Medicine; Referring Provider Psychiatry & Neurology Neurology; Visit Provider Psychiatry & Neurology Neurology
DX: R42 Dizziness and giddiness (principal); D75.89 Other specified diseases of blood and blood-forming organs
CPT/HCPCS: 36415; 80053; 82607; 82746; 85027

== ENCOUNTER → 2022-07-14 | Outpatient (CLI) | payer MEDICARE, SELFPAY ==
[2022-07-14 13:15] LABS: ALB/GLOB Ratio 1.2 RATIO (0.9-2.4); AST(SGOT) 28 U/L (15-37); Alanine Aminotransfer ALT/SGPT 36 U/L (13-56); Alkaline Phosphatase 64 U/L (45-117); Anion Gap 5 (5-15); BUN 19 mg/dL (7-18); BUN/Creat Ratio 24.9 RATIO (10-20); Calcium,Total 10.1 mg/dL (8.5-10.1); Chloride 107 mmol/L (98-107); Cholesterol 227 mg/dL (200); Creatinine, Serum 0.76 mg/dL (0.55-1.02); EST Glomerular Filtration Rate 78 mL/min (>60); Est Glom Filt Rate - Afr Amer 94 mL/min (>60); Globulin 3.2 g/dL (2.2-4.2); Glucose 120 mg/dL (74-106); High Density Lipoprotein 110 mg/dL; Potassium 4.2 mmol/L (3.5-5.1); Protein, Total 7.2 g/dL (6.4-8.2); Sodium Level 141 mmol/L (136-145); Thyroid Stim Hormone (TSH) 2.47 uIU/mL (0.358-3.74); Triglycerides 81 mg/dL; Very Low Density Lipoprotein 16 mg/dL (5-40)
[2022-07-14 13:31] LABS: Hemoglobin A1c 6.5 % (3.8-5.6)
== END | disposition home or self-care (01) ==
LOC: BFHLAB 08:22
PROVIDERS: PCP Family Medicine; Visit Provider Family Medicine
DX: R73.01 Impaired fasting glucose (principal); E78.5 Hyperlipidemia, unspecified
CPT/HCPCS: 36415; 80053; 80061; 83036; 84443

== ENCOUNTER → 2023-01-13 | Outpatient (CLI) | payer MEDICARE, SELFPAY ==
--- NOTE | 2023-01-13 10:02 | BD_ITS ---
STUDY: DUAL ENERGY X-RAY ABSORPTIOMETRY / DXA REASON FOR EXAM: Female, 82 years old. 627.8Menopausal postmenopausal BONE DENSITY REASON FOR EXAM TECHNIQUE: Bone Mineral Density (BMD) measurements of lumbar spine and right hip were obtained. COMPARISON: None. FINDINGS: Lumbar Spine (L1-L4): g/cm2 (0.901) / T-score (-1.3) / Z-score (1.4) Findings are suggestive of osteopenia with a low fracture risk. Right Femur Total: g/cm2 (0.764) / T-score (-1.5) / Z-score (0.6) Right Femoral Neck: g/cm2 (0.749) / T-score (-0.9) / Z-score (1.4) BD/Dexa Bone Density Study IMPRESSION: The patient is considered osteopenic as outlined below according to World [employer] Organization (WHO) criteria with a low fracture risk. Reference Information: The T-score is the number of standard deviations above or below the standard which is normal for young adults at their peak bone mineral density. The World Health Organization (WHO) interprets the T-scores as follows: Above -1 Normal bone density Between -1 and -2.5 Osteopenia Equal to / or below -2.5 Osteoporosis As a practical clinical guideline, osteopenia may be graded as follows: Mild -1 through -1.5 Moderate -1.6 through -2.0 Severe -2.1 through -2.4 The Z-score is the number of standard deviations above or below age-matched controls. A Z-score of less than -1.5 would be considered abnormal. References: 1. NIH Osteoporosis and Related Bone Diseases www osteo.org 2. International Society for Clinical Densitometry www iscd.org 3. National Osteoporosis Foundation www nof.org Electronically Signed: Kuldeep Shea MD at 9:26 EDT ,
== END | disposition home or self-care (01) ==
LOC: OPBD 09:55
PROVIDERS: PCP Family Medicine; Referring Provider Family Medicine; Visit Provider Family Medicine
DX: Z78.0 Asymptomatic menopausal state (principal)
CPT/HCPCS: 77080

== ENCOUNTER → 2023-01-20 | Outpatient (CLI) | payer MEDICARE, SELFPAY ==
--- NOTE | 2023-01-20 10:52 | BI_ITS ---
MAMMOGRAPHY - BILATERAL SCREENING REASON FOR EXAM: Female, 82 years old. Routine annual screening examination. PERTINENT HISTORY: Non-contributory. TECHNIQUE: Digital bilateral breast pablo (3D mammographic acquisition) in the CC and MLO projections. 2-D mediolateral oblique (MLO) and craniocaudad (CC) views of both breasts were obtained. CAD: Full Field Digital Mammography with Computer Added Detection was performed. COMPARISON: Mammogram from 01/10/2022, 01/09/2021, 11/08/2018. FINDINGS: Breast Composition: The breasts are heterogeneously dense, which may obscure small masses. There are no dominant masses or suspicious calcifications. There is a stable benign area of breast tissue asymmetry in the left upper breast that is unchanged since 2019. No other significant abnormalities are identified. There has been no significant change since the prior study. BI/SCRN MAMM (CAD)W/PABLO BILAT IMPRESSION: Stable bilateral screening mammogram. Yearly follow-up mammogram recommended. (A) ASSESSMENT CATEGORY: BIRADS Category 2: Benign. A letter regarding these results will be sent to the patient by the facility within 30 days. Approximately 10% of breast cancers are not detected by mammography. A normal mammogram should not delay biopsy of a clinically suspicious abnormality. Electronically Signed: Jori Taylor DO at 15:55 EDT ,
== END | disposition home or self-care (01) ==
LOC: OPBI 10:51
PROVIDERS: PCP Family Medicine; Referring Provider Obstetrics & Gynecology; Visit Provider Obstetrics & Gynecology
DX: Z12.31 Encounter for screening mammogram for malignant neoplasm of breast (principal)
CPT/HCPCS: 77063; 77067

== ENCOUNTER → 2023-12-23 | Outpatient (CLI) | payer MEDICARE, SELFPAY ==
[2023-12-23 10:26] LABS: Hematocrit 41.2 % (37-47); Hemoglobin 13.4 g/dL (12.0-15.0); Mean Corp Hgb Conc 32.5 g/dL (32-36); Mean Corpuscular Volume 101.5 fL (81-99); Mean Platelet Vol. 11.8 fl (6.2-12.0); Platelet Count 182 K/mm3 (150-450); RBC Distribution Width SD 48.6 fl (35.1-43.9); Red Blood Count 4.06 M/mm3 (4.2-5.4); White Blood Count 3.9 K/mm3 (4.4-11.0)
[2023-12-23 11:15] LABS: Hemoglobin A1c 6.3 % (3.8-5.6)
[2023-12-23 11:20] LABS: ALB/GLOB Ratio 1.1 RATIO (0.9-2.4); AST(SGOT) 32 U/L (15-37); Alanine Aminotransfer ALT/SGPT 38 U/L (13-56); Albumin, Serum 3.7 g/dL (3.2-5.0); Alkaline Phosphatase 74 U/L (45-117); Anion Gap 5 (5-15); BUN 25 mg/dL (7-18); BUN/Creat Ratio 33.3 RATIO (10-20); Calcium,Total 9.3 mg/dL (8.5-10.1); Chloride 106 mmol/L (98-107); Cholesterol 240 mg/dL (200); Creatinine, Serum 0.75 mg/dL (0.55-1.02); EST Glomerular Filtration Rate 79 mL/min (>60); Est Glom Filt Rate - Afr Amer 95 mL/min (>60); Globulin 3.4 g/dL (2.2-4.2); Glucose 118 mg/dL (74-106); High Density Lipoprotein 118 mg/dL; Protein, Total 7.1 g/dL (6.4-8.2); Sodium Level 138 mmol/L (136-145); Thyroid Stim Hormone (TSH) 3.34 uIU/mL (0.358-3.74); Triglycerides 54 mg/dL; Very Low Density Lipoprotein 11 mg/dL (5-40)
[2023-12-23 11:42] LABS: Vitamin D,25 Hydroxy 37.3 ng/mL
== END | disposition home or self-care (01) ==
LOC: MTLAB 07:31
PROVIDERS: PCP Family Medicine; Referring Provider Family Medicine; Visit Provider Family Medicine
DX: M85.80 Other specified disorders of bone density and structure, unspecified site (principal); E11.9 Type 2 diabetes mellitus without complications; E78.5 Hyperlipidemia, unspecified
CPT/HCPCS: 36415; 80053; 80061; 82306; 83036; 84443; 85027

== ENCOUNTER → 2024-01-22 | Outpatient (CLI) | payer MEDICARE, SELFPAY ==
--- NOTE | 2024-01-22 07:47 | BI_ITS ---
MAMMOGRAPHY - BILATERAL SCREENING REASON FOR EXAM: Female, 83 years old. Routine annual screening examination. PERTINENT HISTORY: Non-contributory. TECHNIQUE: Digital bilateral breast pablo (3D mammographic acquisition) in the CC and MLO projections. 2-D mediolateral oblique (MLO) and craniocaudad (CC) views of both breasts were obtained. CAD: Full Field Digital Mammography with Computer Added Detection was performed. COMPARISON: Comparison is made with prior study dated January 20, 2023 and January 10, 2022. FINDINGS: Breast Composition: The breasts are heterogeneously dense, which may obscure small masses. There are no dominant masses or suspicious calcifications. Stable asymmetry of breast tissue were more breast tissue is seen in the upper outer quadrant of the left breast as compared to the right side. Prior sonogram demonstrated this to be fibroglandular tissue. No other significant abnormalities are identified. There has been no significant change since the prior study. BI/SCRN MAMM (CAD)W/PABLO BILAT IMPRESSION: Stable bilateral screening mammogram. Yearly follow-up mammogram recommended. (A) ASSESSMENT CATEGORY: BIRADS Category 2: Benign. A letter regarding these results will be sent to the patient by the facility within 30 days. Approximately 10% of breast cancers are not detected by mammography. A normal mammogram should not delay biopsy of a clinically suspicious abnormality. [id number] Electronically Signed: Kuldeep Shea MD at 8:46 EDT ,
== END | disposition home or self-care (01) ==
LOC: OPBI 07:45
PROVIDERS: PCP Family Medicine; Referring Provider Family Medicine; Visit Provider Family Medicine
DX: Z12.31 Encounter for screening mammogram for malignant neoplasm of breast (principal)
CPT/HCPCS: 77063; 77067

== ENCOUNTER → 2024-12-23 | Outpatient (CLI) | payer MEDICARE, SELFPAY ==
[2024-12-23 10:32] LABS: Absolute Lymphocyte Count 1.03 X10^3/uL (0.83-4.51); Absolute Neutrophil Count 2.4 X10^3/uL (2.0-7.7); Basophil# 0.06 X10^3/uL; Basophil% 1.5 % (0-1); Eosinophil# 0.16 X10^3/uL; Hematocrit 40.6 % (37-47); Hemoglobin 13.4 g/dL (12.0-15.0); Lymphocyte # 1.03 X10^3/ul (0.83-4.51); Lymphocyte % 25.6 % (19-41); Mean Corpuscular Hgb 33.5 pg (27.0-32.0); Mean Corpuscular Volume 101.5 fL (81-99); Mean Platelet Vol. 11.5 fl (6.2-12.0); Monocyte# 0.36 X10^3/uL; Monocyte% 8.9 % (0-10); NRBC Flagged by Analyzer 0 % (0-5); Neutrophil # 2.41 X10^3/uL (2.7-7.7); Neutrophil % 59.8 % (47-70); Platelet Count 195 K/mm3 (150-450); RBC Distribution Width CV 12.8 % (11.6-14.6); RBC Distribution Width SD 48.7 fl (35.1-43.9)
[2024-12-23 11:11] LABS: Hemoglobin A1c 6.7 % (<=5.6)
[2024-12-23 11:20] LABS: ALB/GLOB Ratio 3.8 RATIO (0.9-2.4); AST(SGOT) 29 U/L (<=31); Alanine Aminotransfer ALT/SGPT 22 U/L (<=34); Albumin, Serum 4.4 g/dL (3.4-4.8); Alkaline Phosphatase 69 U/L (35-104); Anion Gap 10 (5-15); BUN 26 mg/dL (4-19); Calcium,Total 9.1 mg/dL (7.6-11.0); Carbon Dioxide 24.6 mmol/L (21.0-32.0); Chloride 104 mmol/L (98-108); Creatinine, Serum 0.75 mg/dL (0.70-1.20); EST Glomerular Filtration Rate 79 (>60); Globulin 1.2 g/dL (2.2-4.2); Glucose 117 mg/dL (70-99); Potassium 4.3 mmol/L (3.3-5.1); Protein, Total 5.5 g/dL (5.9-8.4); Sodium Level 139 mmol/L (133-145); Total Bilirubin 0.33 mg/dL (0.00-1.30)
[2024-12-23 11:26] LABS: Vitamin D,25 Hydroxy 44.1 ng/mL (30-100)
== END | disposition home or self-care (01) ==
LOC: MFPLAB 08:06
PROVIDERS: PCP Family Medicine; Referring Provider Family Medicine; Visit Provider Family Medicine
DX: I73.9 Peripheral vascular disease, unspecified (principal)
CPT/HCPCS: 36415; 80053; 82306; 83036; 84443; 85025

== ENCOUNTER → 2025-01-23 | Outpatient (CLI) | payer MEDICARE, SELFPAY ==
--- NOTE | 2025-01-23 10:30 | BI_ITS ---
EXAM: SCRN MAMM (CAD)W/PABLO BILAT DATE: 01/23/2025 CLINICAL HISTORY: F, Age 84 y/o , ANNUAL Yearly screening mammogram. BREAST CANCER RISK ASSESSMENT: Has not been calculated. TECHNIQUE: SCRN MAMM (CAD)W/PABLO BILAT COMPARISON: Prior exam(s) dated 01/22/2024 and 01/20/2023. FINDINGS: TISSUE DENSITY: The breast tissue is heterogeneously dense, which may obscure small masses. Bilateral Breast Mammographic Findings: Benign round microcalcifications are seen in the left breast. Stable nodular masslike densities are seen in both breasts. No suspicious masses, suspicious clustered microcalcifications, architectural distortion or secondary sign of malignancy is identified in either breast. BI/SCRN MAMM (CAD)W/PABLO BILAT IMPRESSION: Stable benign mammogram OVERALL FINAL ASSESSMENT BI-RADS 2: BENIGN RECOMMEND ANNUAL MAMMOGRAPHIC SCREENING. RECOMMENDATION: Routine annual follow-up in 1 Year A letter with findings and recommendations will be mailed to the patient. Reading Location: [id number]
--- OUTSIDE RECORDS SUMMARY | 2025-01-23 21:54 | XMS RPT_ITS | CCD ---
Author Organization [facility] Care Team Providers Care Water Meter Installer Name Role Phone NATALEE KEITH Attending Unavailable INNANATALEE MCCOY Primary Care Unavailable INNANATALEE Admitting Unavailable INNANATALEE Attending Unavailable INNA, NATALEE Slime Primary Care Unavailable INNANATALEE MCCOY Admitting Unavailable Dr. Lala Damon Primary Care Provider Dr. Lala Damon Referring Provider [phone] 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, FÁTIMA Mcgraw Consulting Unavaila ble BERONICA VILLASENOR DO Primary Care Unavailable DR AMBROSE SANTOS MD Attending Unavailab Jerel Sharma MD Primary Care Provider Jerel Benson MD Attending Provider Jerel Benson MD Referring Provider MICHELLE ARSHAD MD Primary Care Unavailable PAVITHRA NVAARRO~[phone], PAVITHRA MARTINEZ Attending Unavailable PAVITHRA NAVARRO~[phone], PAVITHRA MARTINEZ Admitting Unavailable Jerel Benson Referring Unavailable Jerel Benson Primary Care Unavailable Jerel Benson Attending Unavailable Jerel Benson Referring Unavailable [place] Bensonarnulfo Primary Care Unavailable Jerel Benson Attending Unavailable Allergies Allergy Classification Reported Allergen(s) Allergy Type Date of Onset Reaction(s) Facility (4 sources) Opioid Agonists Allergy to substance 8 Nausea [facility] Work Phone: (3 sources) Surgical adhesive tape Propensity to adverse reactions 8 tears skin [facility] Work Phone: (3 sources) Adhesive Tape; Translations: [ADHESIVE TAPE (ROSINS)] Allergy to substance 6 Other: See Comments [facility] Work Phone: (3 sources) Morphinan opioid; Translations: [OPIOIDS - MORPHINE ANALOGUES] Propensity to adverse reactions to drug 4 [facility] (5 sources) Adhesive Tape; Translations: [adhesive tape] Propensity to adverse reactions 2 Other [facility] Comment on above: TEARS SKIN (3 sources) Opioids - Morphine Analogues Propensity to adverse reactions 2 Nausea [facility] (3 sources) Adhesive bandage Propensity to adverse reactions to substance [facility] (3 sources) Opiate agonist; Translations: [narcotic analgesics] Propensity to adverse reactions to drug Confusion [facility] (1 source) Opioids - Morphine Analogues Drug allergy (disorder) 2 [facility] Repository Medications Current Medications Medication Drug Class(es) Dates Sig (Normalized) Sig (Original) acetaminophen 1000 mg oral tablet (9 sources) Start: 04-16-2023 take 1 tablet by mouth once daily Tylenol Dose : 1,000 mg = 2 tab(s), Oral, TID, not to exceed 3000 mg/day, 0 Refill(s) Start Date: 04/16/23 Status: Ordered Start: 11-30-2020 take 1 capsule by [facility] every six hours as needed Acetaminophen 500 mg capsule Active 500 mg PO EVERY 6 HOURS as needed November 30, 2020 12:00am aspirin 81 mg delayed release oral tablet (2 sources) Platelet Aggregation Inhibitor, Nonsteroidal Anti-inflammatory Drug Start: 04-16-2023 End: 05-14-2023 take 1 tablet by mouth twice daily aspirin 81 mg oral delayed release tablet Dose : 81 mg = 1 tab(s), Oral, BID, Take 81 mg aspirin twice daily with food for 4 weeks postoperatively for DVT prophylaxis., # 56 tab(s), 0 Refill(s), Pharmacy: [facility]/pharmacy #[id number], 156, cm, 04/14/23 16:39:00 EDT, Height, kg, 04/14/23 16:39:00 EDT, Dosing Weight Start Date: 04/16/23 Stop Date: 05/14/23 Status: Ordered atorvastatin 10 mg oral tablet (12 sources) HMG-CoA Reductase Inhibitor Start: 11-13-2017 atorvastatin 10 mg oral tablet Dose : 10 mg = 1 tab(s), Oral, Daily, 0 Refill(s) Start Date: 03/16/23 Status: Ordered Comment on above: Take 10 mg by mouth once daily. calcium carbonate 1500 mg / cholecalciferol 800 unt chewable tablet (7 sources) Vitamin D Start: 11-13-2017 take 1 tablet by mouth once daily Calcium Carbonate-Vitamin D3 (Calcium 600 With Vit D Chew Tb) 1 EACH tablet,chewable Active 2 NMA PO DAILY November 13, 2017 12:00am calcium-vitamin D 250 mg-12.5 mcg (500 intl units) oral tablet, chewable (3 sources) Start: 03-16-2023 take 1 tablet by mouth once calcium-vitamin D 250 mg-12.5 mcg (500 intl units) oral tablet, chewable Dose = 2 tab(s), Chewed, BIDM, # 70 tab(s), 0 Refill(s) Start Date: 03/16/23 Status: Ordered cycloSPORINE 0.5 mg/ml ophthalmic suspension (9 sources) Calcineurin Inhibitor Immunosuppressant Start: 11-13-2017 take 1 drop(s) into the eye(s) twice daily Cyclosporine (Restasis Ophthalmic) 1 DROP dropperette Active 1 NMA Each Eye TWICE A DAY November 13, 2017 12:00am CYCLOSPORINE (RE STASIS OPHTHALMIC) Use in eyes twice daily. 0 Active Comment on above: Use in eyes twice da killian. cycloSPORINE 0.05% ophthalmic emulsion (3 sources) Start: 03-16-20 take 1 dose into the eye(s) twice daily cycloSPORINE 0.05% ophthalmic emulsion Dose = 1 drop(s), Eyes, both, BID, # 30 EA, 0 Refill(s) Start Date: 03/16/23 Status: Ordered famotidine 20 mg oral tablet (2 sources) Histamine-2 Receptor Antagonist Start: 04-16-20 Pepcid 20 mg oral tablet Dose : 20 mg = 1 tab(s), Oral, qDay, # 28 tab(s), 0 Refill(s), Pharmacy: [facility]/pharmacy #[id number], 156, cm, 04/14/23 16:39:00 EDT, Height, kg, 04/14/23 16:39:00 EDT, Dosing Weight Start Date: 04/16/23 Status: Ordered fexofenadine hydrochloride 30 mg disintegrating oral tablet (10 sources) Histamine-1 Receptor Antagonist Start: 03-16-20 fexofenadine 30 mg oral tablet, disintegrating Dose : 30 mg = 1 tab(s), Oral, qDay, # 12 tab(s), 0 Refill(s) Start Date: 03/16/23 Status: Ordered Start: 01-23-2022 take 1 tablet by briana twice daily Fexofenadine (Silvana Allergy) 60 mg tablet Active 60 mg PO TWICE A DAY 60 January 23, 2022 12:00am Comment on above: Take by mouth. 12 hr guaiFENesin 1200 mg extended release oral tablet (5 sources) Start: 2 take 1 tablet by mouth twice daily Guaifenesin 1,200 mg tablet extended release 12hr Active 1200 mg PO TWICE A DAY January 23, 2022 12:00am hypromellose 0.003 mg/mg ophthalmic gel (12 sources) Start: 1 Artificial Tears(Hypromellose) (Systane Gel) 0.3 % gel Active 1 NMA OPHTHALMIC Q4H as needed January 23, 2022 12:00am meloxicam 15 mg oral tablet (12 sources) Nonsteroidal Anti-inflammatory Drug Start: 9 meloxicam 15 mg oral tablet Dose : 15 mg = 1 tab(s), Oral, qDay, Take with food/milk, # 30 tab(s), 0 Refill(s) Start Date: 03/16/23 Status: Ordered Multivitamin preparation (3 sources) Start: 3 take 1 tablet by mouth once daily Multivitamin Dose = 1 tab(s), Oral, Daily, 0 Refill(s) Start Date: 03/16/23 Status: Ordered Dcmsduptumeq-Wl-Bhiy- Minerals (Multiple Vitamins For Women) 1 EACH tablet (7 sources) Start: take 1 tablet by mouth once daily Ogismoqzwqmg-Bq-Bpkq -Minerals (Multiple Vitamins For Women) 1 EACH tablet Active 1 EACH PO DAILY November 13, 2017 9:28am Start: 11-13-2017 take 1 tablet by rbiana th once daily Qoaftrlsvhka-Jd-Vmag-Minerals (Multiple Vitamins For Women) 1 EACH tablet Active 1 NMA PO DAILY November 13, 2017 12:00am Start: 11-13-2017 take 1 tablet by briana th once daily Wuyvszolzjho-Jb-Mzov-Minerals (Multiple Vitamins For Women) 1 EACH tablet Active 1 EACH PO DAILY November 12, 2017 11:00pm Start: 11-13-2017 take 1 tablet by briana th once daily Wlrqpwknrsjg-Qz-Sarw-Minerals (Multiple Vitamins For Women) 1 EACH tablet Active 1 EACH PO DAILY November 13, 2017 12:00am Completed/Discontinued Medications Medication Drug Class(es) Dates Sig (Normalized) Sig (Original) Biotin (2 sources) take 34602 mg by mouth once daily BIOTIN ORAL Take by mouth. 10,000mg QD 0 Active Comment on above: Take by mouth. 10,00 0mg QD Calcium Carbonate / vitamin D3 (2 sources) CALCIUM CARBONATE/VITAMIN D3 (CALCIUM + D ORAL) Take by mouth. 0 Active Comment on above: Take by mouth. diphenhydrAMINE hydrochloride 25 mg oral capsule (7 sources) Histamine-1 Receptor Antagonist Start: 11-30-2020 End: 01-23-2022 take 1 capsule by mouth at bedtime Diphenhydramine Hcl 25 mg capsule Discontinued 25 mg PO AT BEDTIME November 30, 2020 12:00am January 23, 2022 9:03am DOCOSAHEXANOIC ACID/EPA (FISH OIL ORAL) (2 sources) DOCOSAHEXANOIC ACID/EPA (FISH OIL ORAL) Take by mouth. 1200-1400mg 0 Active Comment on above: Take by mouth. 1200- 1400mg Fish Oil-Dha-Epa (6 sources) Start: 11-13-2017 End: 11-30-2020 Fish Oil-Dha-Epa Discontinued 1 EACH PO DAILY November 13, 2017 9:28am November 30, 2020 9:58am Start: 11-13-2017 End: 11-30-2020 Fish Oil-Dha-Epa Discontinue d 1 EACH PO DAILY November 12, 2017 11:00pm November 30, 2020 8:58am Start: 11-13-2017 End: 11-30-2020 Fish Oil-Dha-Epa Discontinue d 1 EACH PO DAILY November 13, 2017 12:00am November 30, 2020 9:58am Fish Oil-Dha-Epa 1 EACH capsule (1 source) Start: 11-13-2017 End: 11-30-2020 take 1 capsule by mouth once daily Fish Oil-Dha-Epa 1 EACH capsule Discontinued 1 NMA PO DAILY November 13, 2017 12:00am November 30, 2020 9:58am Fresh Coat (7 sources) Start: 11-13-2017 End: 11-30-2020 Fresh Coat Discontinued 1 DRP EACHEYE 4 TIMES DAILY November 13, 2017 9:28am November 30, 2020 9:58am Start: 11-13-2017 End: 11-30-2020 Fresh Coat Discontinued 1 NM A EACHEYE 4 TIMES DAILY November 13, 2017 12:00am November 30, 2020 9:58am Start: 11-13-2017 End: 11-30-2020 Fresh Coat Discontinued 1 DR P EACHEYE 4 TIMES DAILY November 12, 2017 11:00pm November 30, 2020 8:58am Start: 11-13-2017 End: 11-30-2020 Fresh Coat Discontinued 1 DR P EACHEYE 4 TIMES DAILY November 13, 2017 12:00am November 30, 2020 9:58am Hard/Soft/Gas Permeable Prods (SYSTANE CONTACTS) drop (2 sources) Hard/Soft/Gas Permeable Prods (SYSTANE CONTACTS) drop Use in both eyes. 0 Active Comment on above: Use in both eyes. MULTIVITAMIN ORAL (2 sources) MULTIVITAMIN ORA L Take by mouth. 0 Active Comment on above: Take by mouth. naproxen sodium 220 mg oral tablet (9 sources) Nonsteroidal Anti-inflammatory Drug Start: 11-14-19 18 End: 12-01-19 21 take 1 tablet by mouth once daily Naproxen Sodium (Aleve) 220 MG tablet Discontinued 220 mg PO DAILY November 13, 2017 12:00am November 30, 2020 9:58am Comment on above: Take 220 mg by mouth . polyvinyl alcohol 27 mg/ml / povidone 20 mg/ml ophthalmic solution (2 sources) Eye Lubricant Combination No.1 (FRESHKOTE) 2-0.9-1.8 % drop Use in both eyes. Three to four times a day 0 Active Comment on above: Use in both eyes. Th ree to four times a day Problems Active Problems Problem Classification Problem Date Documented Da te Episodic/Chronic Conditions associated with dizziness or vertigo (6 sources) Vertigo; Translations: [Dizziness and giddiness] Episodic Diseases of mouth; excluding dental (1 source) Dry mouth, unspecified; Translations: [DRY MOUTH UNSPECIFIED] Onset: 12-28-2024 Episodic Disorders of lipid metabolism (3 sources) Hyperlipidemia; Translations: [Hyperlipidemia, unspecified] Onset: 06-05-2015 06-05-2015 Chronic Immunizations and screening for infectious disease (3 sources) Encounter for immunization; Translations: [Encounter for immunization] Onset: 08-31-2020 Episodic Nausea and vomiting (3 sources) Nausea and vomiting; Translations: [Nausea with vomiting, unspecified] Onset: 04-15-2023 Episodic Osteoarthritis (10 sources) Arthritis; Translations: [Unspecified osteoarthritis, unspecified site] Onset: 06-05-2015 06-05-2015 Chronic Other aftercare (1 source) Follow-up orthopedic assessment; Translations: [Aftercare following joint replacement surgery] Chronic Other and unspecified benign neoplasm (7 sources) History of polyp of colon; Translations: [Personal history of colonic polyps] 11-19-2017 Episodic Other connective tissue disease (1 source) Hip joint prosthesis present; Translations: [Presence of right artificial hip joint] Chronic Other connective tissue disease (1 source) Muscle weakness; Translations: [Muscle weakness (generalized)] Episodic Other hematologic conditions (5 sources) 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; Translations: [Other specified diseases of blood and blood-forming organs] 01-23-2022 Chronic Other hematologic conditions (1 source) Other specified diseases of blood and blood-forming organs; Translations: [Other specified diseases of blood and blood-forming organs] Chronic Other inflammatory condition of skin (2 sources) Other lichen planus; Translations: [OTHER LICHEN PLANUS] Onset: 12-28-2024 Episodic Other nervous system disorders (1 source) Walking disability; Translations: [Difficulty in walking, not elsewhere classified] Chronic Other nervous system disorders (1 source) Unsteadiness present; Translations: [Unsteadiness on feet] Episodic Other non-traumatic joint disorders (1 source) Pain in right hip joint; Translations: [Pain in right hip] Episodic Other screening for suspected conditions (not mental disorders or infectious disease) (1 source) Encounter for screening mammogram for malignant neoplasm of breast; Translations: [Encounter for screening mammogram for malignant neoplasm of breast] Onset: 01-18-2025 Episodic Peripheral and visceral atherosclerosis (1 source) Peripheral vascular disease, unspecified; Translations: [Peripheral vascular disease, unspecified] Onset: 12-29-2024 Chronic Spondylosis; intervertebral disc disorders; other back problems (7 sources) Lumbar spondylosis; Translations: [Other spondylosis, lumbar region] 12-10-2020 Chronic Spondylosis; intervertebral disc disorders; other back problems (14 sources) Lumbar radiculopathy; Translations: [Radiculopathy, lumbar region] 11-30-2020 Episodic Past or Other Problems Problem Classification Problem Date Documented Da te Episodic/Chronic Other bone disease and musculoskeletal deformities (2 sources) Osteopenia; Translations: [Other specified disorders of bone density and structure, unspecified site] Onset: 06-05-2015 06-05-2015 Episodic Results Test Name Value Interpretation Reference Range Facility DARIANA -reflex to Titer & Patte rnon 12-29-2024 Antinuclear Antibodies, IFA Negative Normal [facility] Comment on above: Order Comment: Dex phan at: - [facility] [address] [id number] Legal Services Manager: Eduardo Maynard PhD, Phone: [phone] Result Comment: Nega tive <1:80 Borderline 1:80 Positive >1:80 ICAP nomenclature: AC-0 For more information about Hep-2 cell patterns use ANApatterns.org, the official website for the International Consensus on Antinuclear Antibody (DARIANA) Patterns (ICAP). Performed By: #### A NA #### [facility] RESULTS Hepatitis C Antibody w/ Refl ex to PCRon 12-29-2024 HCV Ab Non-Reactive Normal Non Reactive [facility] Comment on above: Order Comment: Perfo rmed at: [facility] [place] [address] Legal Services Manager: Eduardo Maynard PhD, Phone: [phone] Performed By: #### H EPCABR #### [facility] RESULTS Interpretation Comment [facility] Comment on above: Order Comment: Perfo rmed at: [place] [address] Legal Services Manager: Eduardo Maynard PhD, Phone: [phone] Result Comment: Not infected with HCV unless early or acute infection is suspected (which may be delayed in an immunocompromised individual), or other evidence exists to indicate HCV infection. Performed By: #### H EPCABR #### [facility] RESULTS Sjogrens Abs SS-A/SS-Bon Sjogren's Anti-SS-A <0.2 Normal 0.0-0.9 [facility] Comment on above: Order Comment: Perfo rmed at: [facility] [place] [address] Legal Services Manager: Eduardo Maynard PhD, Phone: [phone] Performed By: #### S LILIANA #### [facility] RESULTS Sjogren's Anti-SS-B <0.2 Normal 0.0-0.9 [facility] Comment on above: Order Comment: Perfo rmed at: [facility] [place] [address] Legal Services Manager: Eduardo Maynard PhD, Phone: [phone] Performed By: #### S LILIANA #### [facility] RESULTS Rheumatoid Factor (Quant)on 12-27-2024 Rheumatoid Factor <12 Normal <=13 [facility] Comment on above: Performed By: #### R F #### [facility] [address] [place] [address] Absolute lymphocyte countOrd ered By: Jerel Benson on 12-23-2024 Lymphocytes Auto (Unsp spec) [#/Vol] 1.03 10*3/uL 0.83-4.51 [facility] Absolute neutrophil countOrd ered By: Jerel Benson on 12-23-2024 Neutrophils (Bld) [#/Vol] 2.4 10*3/uL 2.0-7.7 [facility] Anion gap in Serum or Plasma Ordered By: Jerel Uribeke on 12-23-2024 Anion gap [Moles/Vol] 10 mmol/L 5- [facility] Automated lymphocyte count a s percentage of total leukocytesOrdered By: Jerel Uribeke on 12-23-2024 Lymphocytes/100 WBC Auto (Unsp spec) 25.6 % - [facility] BUN/creatinine ratioOrdered By: [facility] on 12-23-2024 Urea nitrogen/Creatinine [Mass ratio] 34.0 mg/mg High 10- [facility] Basophil percentageOrdered B y: Jerel Uribeke on 12-23-2024 Basophils/100 WBC (Bld) 1.5 % High 0-1 [facility] Bilirubin, totalOrdered By: Jerel Uribeke on 12-23-2024 Bilirubin [Mass/Vol] 0.33 mg/dL 0.00-1.30 [facility] CBC W/Diff, Automatedon 12-02 Absolute Lymph 1.03 X10 3/uL Normal 0.83-4.51 [facility] Comment on above: Order Comment: Order Date: 12/20/24 Order Info: 0184-1 - CBCD Performed By: #### L [id number], [id number], L100.0100, [id number] #### [facility] [address] [place], [address] Absolute Neut 2.4 X10 3/uL Normal 2.0-7.7 [facility] Comment on above: Order Comment: Order Date: 12/20/24 Order Info: 0184-1 - CBCD Performed By: #### L [id number], [id number], L100.0100, [id number] #### [facility] [address] [place], [address] Basophils/100 WBC (Bld) 1.5 % High 0-1 [facility] Comment on above: Order Comment: Order Date: 12/20/24 Order Info: 0184-1 - CBCD Performed By: #### L [id number], [id number], L100.0100, [id number] #### [facility] [address] [place], [address] Eosinophils/100 WBC (Bld) 4.0 % Normal 0-5 [facility] Comment on above: Order Comment: Order Date: 12/20/24 Order Info: 0184-1 - CBCD Performed By: #### L [id number], [id number], L100.0100, [id number] #### [facility] [address] [place], [address] Erythrocyte distribution width (RBC) [Ratio] 12.8 % Normal 11.6-14.6 [facility] Comment on above: Order Comment: Order Date: 12/20/24 Order Info: 0184-1 - CBCD Performed By: #### L [id number], [id number], L100.0100, [id number] #### [facility] [address] [place], [address] Hematocrit (Bld) [Volume fraction] 40.6 % Normal 37-47 [facility] Comment on above: Order Comment: Order Date: 12/20/24 Order Info: 0184-1 - CBCD Performed By: #### L [id number], [id number], L100.0100, [id number] #### [facility] [address] [place], [address] Hemoglobin (Bld) [Mass/Vol] 13.4 g/dL Normal 12.0-15.0 [facility] Comment on above: Order Comment: Order Date: 12/20/24 Order Info: 0184-1 - CBCD Performed By: #### L [id number], [id number], L100.0100, [id number] #### [facility] [address] [place], [address] IG% 0.200 Normal 0.0-0.9 [facility] Comment on above: Order Comment: Order Date: 12/20/24 Order Info: [id number]- - CBCD Result Comment: IG% - Immature Granulocytes (promyelocytes, myelocytes and metamyelocytes) > 1% indicates that a LEFT SHIFT is Present. Performed By: #### L [id number], [id number], L100.0100, [id number] #### [facility] [address] [place], [address] Lymphocytes/100 WBC (Bld) 25.6 % Normal 19-41 [facility] Comment on above: Order Comment: Order Date: 12/20/24 Order Info: 0184 - CBCD Performed By: #### L [id number], [id number], L100.0100, [id number] #### [facility] [address] [place], [address] MCH (RBC) [Entitic mass] 33.5 pg High 27.0-32.0 [facility] Comment on above: Order Comment: Order Date: 12/20/24 Order Info: 0184- - CBCD Performed By: #### L [id number], [id number], L100.0100, [id number] #### [facility] [address] [place], [address] MCHC (RBC) [Mass/Vol] 33.0 g/dL Normal 32-36 [facility] Comment on above: Order Comment: Order Date: 12/20/24 Order Info: 0184- - CBCD Performed By: #### L [id number], [id number], L100.0100, [id number] #### [facility] [address] [place], [address] MCV (RBC) [Entitic vol] 101.5 fL High 81-99 [facility] Comment on above: Order Comment: Order Date: 12/20/24 Order Info: 0184-1 - CBCD Performed By: #### L [id number], [id number], L100.0100, [id number] #### [facility] [address] [place], [address] Monocytes/100 WBC (Bld) 8.9 % Normal 0-10 [facility] Comment on above: Order Comment: Order Date: 12/20/24 Order Info: 0184-1 - CBCD Performed By: #### L [id number], [id number], L100.0100, [id number] #### [facility] [address] [place], [address] Neutrophils/100 WBC (Bld) 59.8 % Normal 47-70 [facility] Comment on above: Order Comment: Order Date: 12/20/24 Order Info: 0184-1 - CBCD Performed By: #### L [id number], [id number], L100.0100, [id number] #### [facility] [address] [place], [address] Nucleated RBC (Bld) [#/Vol] 0 10*3/uL Normal 0-5 [facility] Comment on above: Order Comment: Order Date: 12/20/24 Order Info: 0184-1 - CBCD Performed By: #### L [id number], [id number], L100.0100, [id number] #### [facility] [address] [place], [address] Platelet mean volume (Bld) [Entitic vol] 11.5 fL Normal 6.2-12.0 [facility] Comment on above: Order Comment: Order Date: 12/20/24 Order Info: 0184-1 - CBCD Performed By: #### L [id number], [id number], L100.0100, [id number] #### [facility] [address] [place], [address] Platelets (Bld) [#/Vol] 195 10*3/uL Normal 150-450 [facility] Comment on above: Order Comment: Order Date: 12/20/24 Order Info: 0184-1 - CBCD Performed By: #### L [id number], [id number], L100.0100, [id number] #### [facility] [address] [place], [address] RBC (Bld) [#/Vol] 4.00 10*6/uL Low 4.2-5.4 [facility] Comment on above: Order Comment: Order Date: 12/20/24 Order Info: 0184-1 - CBCD Performed By: #### L [id number], [id number], L100.0100, [id number] #### [facility] [address] [place], [address] RDW SD 48.7 fl High 35.1-43.9 [facility] Comment on above: Order Comment: Order Date: 12/20/24 Order Info: 0184-1 - CBCD Performed By: #### L [id number], [id number], L100.0100, [id number] #### [facility] [address] [place], [address] WBC (Bld) [#/Vol] 4.0 10*3/uL Low 4.4-11.[address] [facility] Comment on above: Order Comment: Order Date: 12/20/24 Order Info: 0184-1 - CBCD Performed By: #### L [id number], [id number], L100.0100, [id number] #### [facility] [address] [place], [address] Carbon dioxide, total [Moles /volume] in Central venous bloodOrdered By: Jerel Benson on 12-23-2024 CO2 [Moles/Vol] 24.6 mmol/L 21.0-32.0 [facility] Chloride assayOrdered By: Xenia marilin Kelley on 12-23-2024 Chloride [Moles/Vol] 104 mmol/L 98-108 [facility] Comprehensive Metabolic Prof ilon 12-23-2024 Albumin [Mass/Vol] 4.4 g/dL Normal 3.4-4.[address] [facility] Comment on above: Order Comment: Order Date: 12/20/24 Order Info: [id number] - CMP Order Info: 3 - TSH Performed By: #### L [id number], [id number], L100.0100, [id number] #### [facility] [address] [place], [address] Albumin/Globulin [Mass ratio] 3.8 {ratio} High 0.9-2.4 [facility] Comment on above: Order Comment: Order Date: 12/20/24 Order Info: [id number] - CMP Order Info: 3 - TSH Performed By: #### L 501.9520, L500.4050, L100.0100, L501.9985 #### [facility] [address] [place], [address] ALK PHOS 69 U/L Normal 35-104 [facility] Comment on above: Order Comment: Order Date: 12/20/24 Order Info: 0786-1 - CMP Order Info: 3013 - TSH Performed By: #### L 501.9520, L500.4050, L100.0100, [id number] #### [facility] [address] [place], [address] ALT [Catalytic activity/Vol] 22 U/L Normal <=34 [facility] Comment on above: Order Comment: Order Date: 12/20/24 Order Info: 0786-1 - CMP Order Info: 3013 - TSH Performed By: #### L 501.9520, L500.4050, L100.0100, [id number] #### [facility] [address] [place], [address] AST [Catalytic activity/Vol] 29 U/L Normal <=31 [facility] Comment on above: Order Comment: Order Date: 12/20/24 Order Info: 0786-1 - CMP Order Info: 3 - TSH Performed By: #### L 501.9520, L500.4050, L100.0100, [id number] #### [facility] [address] [place], [address] Bilirubin [Mass/Vol] 0.33 mg/dL Normal 0.00-1.30 [facility] Comment on above: Order Comment: Order Date: 12/20/24 Order Info: 0786-1 - CMP Order Info: 3 - TSH Performed By: #### L 501.9520, L500.4050, L100.0100, L501.9985 #### [facility] [address] [place], [address] BUN/CRE 34.0 RATIO High 10-20 [facility] Comment on above: Order Comment: Order Date: 12/20/24 Order Info: 0786-1 - CMP Order Info: 3 - TSH Performed By: #### L 501.9520, L500.4050, L100.0100, L501.9985 #### [facility] [address] [place], [address] Calcium [Mass/Vol] 9.1 mg/dL Normal 7.6-11.[address] [facility] Comment on above: Order Comment: Order Date: 12/20/24 Order Info: 0786-1 - CMP Order Info: 3 - TSH Performed By: #### L 501.9520, L500.4050, L100.0100, [id number] #### [facility] [address] [place], [address] Chloride [Moles/Vol] 104 mmol/L Normal 98-108 [facility] Comment on above: Order Comment: Order Date: 12/20/24 Order Info: 0786-1 - CMP Order Info: 301-3 - TSH Performed By: #### L 501.9520, L500.4050, L100.0100, [id number] #### [facility] [address] [place], [address] CO2 [Moles/Vol] 24.6 mmol/L Normal 21.0-32.0 [facility] Comment on above: Order Comment: Order Date: 12/20/24 Order Info: 0786- - CMP Order Info: 3013 - TSH Performed By: #### L 501.9520, L500.4050, L100.0100, [id number] #### [facility] [address] [place], [place], [address] Creatinine [Mass/Vol] 0.75 mg/dL Normal 0.70-1.20 [facility] Comment on above: Order Comment: Order Date: 12/20/24 Order Info: 0786- - CMP Order Info: 3013 - TSH Performed By: #### L 501.9520, L500.4050, L100.0100, [id number] #### [facility] [address] [place], [address] GAP 10 Normal 5-15 [facility] Comment on above: Order Comment: Order Date: 12/20/24 Order Info: 0786-1 - CMP Order Info: 3016-3 - TSH Performed By: #### L 501.9520, L500.4050, L100.0100, L501.9985 #### [facility] [address] [place], [address] GFR/1.73 sq M.predicted among non-blacks MDRD (S/P/Bld) [Vol rate/Area] 79 mL/min/{1.73_m2} Normal >60 [facility] Comment on above: Order Comment: Order Date: 12/20/24 Order Info: 0786-1 - [facility] Order Info: 3016-3 - TSH Result Comment: mL/m in/1.73m2 CKD-EPI Creatinine Equation (2020) Performed By: #### L 501.9520, L500.4050, L100.0100, L501.9985 #### [facility] [address] [place], [address] Globulin (S) [Mass/Vol] 1.2 g/dL Low 2.2-4.2 [facility] Comment on above: Order Comment: Order Date: 12/20/24 Order Info: 0786-1 - [facility] Order Info: 30163 - TSH Performed By: #### L 501.9520, L500.4050, L100.0100, L501.9985 #### [facility] [address] [place], [address] Glucose [Mass/Vol] 117 mg/dL High 70-[address] [facility] Comment on above: Order Comment: Order Date: 12/20/24 Order Info: 0786-1 - [facility] Order Info: 3016-3 - TSH Performed By: #### L 501.9520, L500.4050, L100.0100, L501.9985 #### [facility] [address] [place], [address] Potassium [Moles/Vol] 4.3 mmol/L Normal 3.3-5.1 [facility] Comment on above: Order Comment: Order Date: 12/20/24 Order Info: 0786-1 - [facility] Order Info: 3016-3 - TSH Performed By: #### L 501.9520, L500.4050, L100.0100, L501.9985 #### [facility] [address] [place], [address] Sodium [Moles/Vol] 139 mmol/L Normal 133-[address] [facility] Comment on above: Order Comment: Order Date: 12/20/24 Order Info: 0786-1 - CMP Order Info: 3016-3 - TSH Performed By: #### L 501.9520, L500.4050, L100.0100, L501.9985 #### [facility] [address] [place], [place], [id number] T PROT 5.5 g/dL Low 5.9-8.4 [facility] Comment on above: Order Comment: Order Date: 12/20/24 Order Info: 0786-1 - CMP Order Info: 3016-3 - TSH Performed By: #### L 501.9520, L500.4050, L100.0100, L501.9985 #### [facility] [address] [place], [address] Urea nitrogen [Mass/Vol] 26 mg/dL High 4-19 [facility] Comment on above: Order Comment: Order Date: 12/20/24 Order Info: 0786-1 - [facility] Order Info: 3016-3 - TSH Performed By: #### L 501.9520, L500.4050, L100.0100, L501.9985 #### [facility] [address] [place], [address] Eosinophil percentageOrdered By: Jerel Benson on 12-23-2024 Eosinophils/100 WBC (Bld) 4.0 % 0-5 [facility] Erythrocyte distribution wid th ratioOrdered By: Jerel Benson on 12-23-2024 Erythrocyte distribution width (RBC) [Ratio] 12.8 % 11.6-14.6 [facility] Erythrocyte distribution wid th standard deviationOrdered By: Jerel Benson on 12-23-2024 Erythrocyte distribution width (RBC) [Ratio] 48.7 fl High 35.1-43.9 [facility] Glomerular filtration rate ( GFR) estimation/1.73 sq m using serum, plasma, or whole bOrdered By: Jerel Benson on 12-23-2024 GFR/1.73 sq M.predicted among non-blacks MDRD (S/P/Bld) [Vol rate/Area] 79 mL/min/{1.73_m2} >60 [facility] Comment on above: mL/min/1.73m2 CKD-EP I Creatinine Equation (2020) Hematocrit Auto (Bld) [Volum e fraction]Ordered By: Jerel Benson on 12-23-2024 Hematocrit (Bld) [Volume fraction] 40.6 % 37-47 [facility] Hemoglobin A1con 12-23-2024 HbA1c (Bld) [Mass fraction] 6.7 % High <=5.6 [facility] Comment on above: Order Comment: Order Date: 12/20/24 Order Info: 4548-4 - A1C Result Comment: Norm al < 5.7 % Prediabetic 5.7 - 6.4 % Diabetic >or= 6.5 % Please note range changes. Performed By: #### L 501.9520, L500.4050, L100.0100, L501.9985 #### [facility] [address] [place] [address], [address] Hemoglobin A1c percentageOrd ered By: Jerel Benson on 12-23-2024 HbA1c (Bld) [Mass fraction] 6.7 % High <5.7 [facility] Comment on above: Normal < 5.7 % Predi abetic 5.7 - 6.4 % Diabetic >or= 6.5 % Please note range changes. Hemoglobin measurementOrdere d By: Jerel Benson on 12-23-2024 Hemoglobin (Bld) [Mass/Vol] 13.4 g/dL 12.0-15.0 [facility] Immature granulocytes/100 WB C Auto (Bld)Ordered By: Jerel Benson on 12-23-2024 Immature granulocytes/100 WBC (Bld) 0.200 % 0.0-0.9 [facility] Comment on above: IG% - Immature Granu locytes (promyelocytes, myelocytes and metamyelocytes) > 1% indicates that a LEFT SHIFT is Present. Laboratory - Chemistry and C hemistry - challengeOrdered By: Jerel Benson on 12-23-2024 AST [Catalytic activity/Vol] 29 U/L <32 [facility] MCV (mean corpuscular volume ) determinationOrdered By: Jerel Benson on 12-23-2024 MCV (RBC) [Entitic vol] 101.5 fL High 81-99 [facility] Mean corpuscular hemoglobin (MCH) determinationOrdered By: Jerel Benson on 12-23-2024 MCH (RBC) [Entitic mass] 33.5 pg High 27.0-32.0 [facility] Mean corpuscular hemoglobin concentration (MCHC) determinationOrdered By: Jerel Benson on 12-23-2024 MCHC (RBC) [Mass/Vol] 33.0 g/dL 32-36 [facility] Mean platelet volume determi nationOrdered By: Jerel Benson on 12-23-2024 Platelet mean volume (Bld) [Entitic vol] 11.5 fL 6.2-12.0 [facility] Monocyte percentageOrdered B y: Jerel Benson on 12-23-2024 Monocytes/100 WBC (Bld) 8.9 % 0-10 [facility] Neutrophil percentageOrdered By: Jerel Benson on 12-23-2024 Neutrophils/100 WBC (Bld) 59.8 % 47-70 [facility] Nucleated red blood cell per centageOrdered By: Jerel Benson on 12-23-2024 Nucleated RBC/100 WBC (Bld) [Ratio] 0 % 0-5 [facility] Platelet countOrdered By: Xenia Benson on 12-23-2024 Platelets (Bld) [#/Vol] 195 10*3/uL 150-450 [facility] Potassium measurement (mass/ volume)Ordered By: Jerel Benson on 12-23-2024 Potassium (Unsp spec) [Mass/Vol] 4.3 mmol/L 3.3-5.1 [facility] RBC Auto (Bld) [#/Vol]Ordere d By: Jerel Benson on 12-23-2024 RBC (Bld) [#/Vol] 4.00 10*6/uL Low 4.2-5.4 [facility] Serum creatinine measurement (mass/volume)Ordered By: Jerel Benson on 12-23-2024 Creatinine [Mass/Vol] 0.75 mg/dL 0.70-1.20 [facility] Serum globulin measurementOr dered By: Jerel Benson on 12-23-2024 Globulin (S) [Mass/Vol] 1.2 g/dL Low 2.2-4.2 [facility] Serum glucose measurement (m ass/volume)Ordered By: Jerel Benson on 12-23-2024 Glucose [Mass/Vol] 117 mg/dL High 70-[address] [facility] Serum or plasma alanine rodriguez otransferase (ALT) measurementOrdered By: Jerel Benson on 12-23-2024 ALT [Catalytic activity/Vol] 22 U/L <35 [facility] Serum or plasma albumin trevor urement (mass/volume)Ordered By: Jerel Benson on 12-23-2024 Albumin [Mass/Vol] 4.4 g/dL 3.4-4.[address] [facility] Serum or plasma albumin/glob ulin mass ratioOrdered By: Jerel Benson on 12-23-2024 Albumin/Globulin [Mass ratio] 3.8 {ratio} High 0.9-2.4 [facility] Serum or plasma alkaline lico sphatase measurementOrdered By: Jerel Benson on 12-23-2024 ALP [Catalytic activity/Vol] 69 U/L 35-104 [facility] Serum or plasma calcium trevor urement (mass/volume)Ordered By: Jerel Benson on 12-23-2024 Calcium [Mass/Vol] 9.1 mg/dL 7.6-11.[address] [facility] Serum or plasma urea nitroge n measurement (mass/volume)Ordered By: Jerel Benson on 12-23-2024 Urea nitrogen [Mass/Vol] 26 mg/dL High 4-19 [facility] Sodium levelOrdered By: Jersey Benson on 12-23-2024 Sodium [Moles/Vol] 139 mmol/L 133-[address] [facility] TSH DL <= 0.005 mIU/L QnOrde red By: Jerel Benson on 12-23-2024 TSH Qn 2.040 uIU/mL 0.300-4.200 [facility] Thyroid Stim Hormone (TSH)on 12-23-2024 TSH 2.040 uIU/mL Normal 0.300-4.200 [facility] Comment on above: Order Comment: Order Date: 12/20/24 Order Info: 0786-1 - [facility] Order Info: 3016-3 - TSH Performed By: #### L 501.9520, L500.4050, L100.0100, L501.9985 #### [facility] [address] [place], [place], [address] Total proteinOrdered By: Lesia Benson on 12-23-2024 Protein [Mass/Vol] 5.5 g/dL Low 5.9-8.[address] [facility] Vitamin D,25 Hydroxyon 12-23 Vitamin D 25-OH 44.1 ng/mL Normal 30-100 [facility] Comment on above: Order Comment: Order Date: 12/20/24 Order Info: 0786-1 - [facility] Order Info: 3016-3 - TSH Result Comment: Soraida min D Status Deficiency: <20 ng/mL (50nmol/L) Insufficiency: 20-30 ng/mL (50-75 nmol/L) Sufficiency: 30-100 ng/mL (75-250 nmol/L) Toxicity: >100 ng/mL (>250 nmol/L) Performed By: #### L 506.1001 #### [facility] [address] [place], [place], [address] White blood cell (WBC) count Ordered By: Jerel Benson on 12-23-2024 WBC (Bld) [#/Vol] 4.0 10*3/uL Low 4.4-11.[address] [facility] .Auto Diffon 04-16-2023 Basophil, Absolute 0.0 10 3/mcL Normal 0.0-0.2 [facility] ([place]) Comment on above: Performed By: #### C BC, ADIFF, GFR, BMP, ANEU #### [facility]ia [address] [address] Basophils/100 WBC (Bld) 0.7 % Normal 0.0-2.5 [facility] ([place]) Comment on above: Performed By: #### C BC, ADIFF, GFR, BMP, ANEU #### Saadia [address] [address] Eosinophil, Absolute 0.1 10 3/mcL Normal 0.0-0.4 Replaced by [facility] ([place]) Comment on above: Performed By: #### C BC, ADIFF, GFR, BMP, ANEU #### [address] [address] Eosinophils/100 WBC (Bld) 1.6 % Normal 0.0-7.0 [facility] ([place]) Comment on above: Performed By: #### C BC, ADIFF, GFR, BMP, ANEU #### [address] [address] Lymphocyte, Absolute 0.6 10 3/mcL Low 0.8-3.9 Replaced by [facility] ([place]) Comment on above: Performed By: #### C BC, ADIFF, GFR, BMP, ANEU #### [address] [address] Lymphocytes/100 WBC (Bld) 11.4 % Normal 10.0-50.0 [facility] ([place]) Comment on above: Performed By: #### C BC, ADIFF, GFR, BMP, ANEU #### [address] [address] Monocyte, Absolute 0.6 10 3/mcL Normal 0.2-1.0 [facility] ([place]) Comment on above: Performed By: #### C BC, ADIFF, GFR, BMP, ANEU #### [address] [address] Monocytes/100 WBC (Bld) 10.6 % Normal 1.7-13.0 [facility] ([place]) Comment on above: Performed By: #### C BC, ADIFF, GFR, BMP, ANEU #### [address] [address] Neutrophils/100 WBC (Bld) 75.7 % Normal 37.0-80.0 [facility] ([place]) Comment on above: Performed By: #### C BC, ADIFF, GFR, BMP, ANEU #### [address] [address] .GFRon 04-16-2023 GFR 92 ml/min/1.73sqm Normal [facility] ([place]) Comment on above: Result Comment: GFR Population mean for , Non- Americans Ages 20-29 = 116 mL/min/1.73 sq.m. Ages 30-39 = 107 mL/min/1.73 sq.m. Ages 40-49 = 99 mL/min/1.73 sq.m. Ages 50-59 = 93 mL/min/1.73 sq.m. Ages 60-69 = 85 mL/min/1.73 sq.m. Ages 70+ = 75 mL/min/1.73 sq.m. Chronic Kidney Disease: Less than 60 mL/min/1.73 square meters End Stage Renal Disease: Less than 15 mL/min/1.73 square meters Performed By: #### C BC, ADIFF, GFR, BMP, ANEU #### [address] [address] GFR Non- 76 ml/min/1.73sqm Normal [facility] ([place]) Comment on above: Result Comment: GFR Population mean for , Non- Americans Ages 20-29 = 116 mL/min/1.73 sq.m. Ages 30-39 = 107 mL/min/1.73 sq.m. Ages 40-49 = 99 mL/min/1.73 sq.m. Ages 50-59 = 93 mL/min/1.73 sq.m. Ages 60-69 = 85 mL/min/1.73 sq.m. Ages 70+ = 75 mL/min/1.73 sq.m. Chronic Kidney Disease: Less than 60 mL/min/1.73 square meters End Stage Renal Disease: Less than 15 mL/min/1.73 square meters Performed By: #### C BC, ADIFF, GFR, BMP, ANEU #### [address] [address] .NEUABSon 04-16-2023 Neutrophil, Absolute 4.3 10 3/mcL Normal 2.9-6.2 Replaced by [facility] ([place]) Comment on above: Performed By: #### C BC, ADIFF, GFR, BMP, ANEU #### [address] [place] [address] BMPon 04-16-2023 BUN/Creatinine Ratio 19 ratio Normal 7-27 [facility] ([place]) Comment on above: Performed By: #### C BC, ADIFF, GFR, BMP, ANEU #### [address] [address] Calcium [Mass/Vol] 8.7 mg/dL Normal 8.4-10.2 [facility] ([place] Comment on above: Performed By: #### C BC, ADIFF, GFR, BMP, ANEU #### [address] [address] Chloride [Moles/Vol] 103 mmol/L Normal 98-107 [facility] ([place]) Comment on above: Performed By: #### C BC, ADIFF, GFR, BMP, ANEU #### [address] [address] CO2 [Moles/Vol] 29 mmol/L Normal 23-31 [facility] ([place]) Comment on above: Performed By: #### C BC, ADIFF, GFR, BMP, ANEU #### [address] [address] Creatinine [Mass/Vol] 0.74 mg/dL Normal 0.55-1.02 [facility] ([place]) Comment on above: Performed By: #### C BC, ADIFF, GFR, BMP, ANEU #### [address] [address] Electrolyte Balance 7.0 mEq/L Normal 4.0-15.0 [facility] ([place]) Comment on above: Performed By: #### C BC, ADIFF, GFR, BMP, ANEU #### [address] [address] Glucose [Mass/Vol] 137 mg/dL High 83-110 [facility] Comment on above: Performed By: #### C BC, ADIFF, GFR, BMP, ANEU #### [address] [address] Potassium [Moles/Vol] 4.3 mmol/L Normal 3.5-5.1 [facility] ([place]) Comment on above: Performed By: #### C BC, ADIFF, GFR, BMP, ANEU #### [address] [address] Sodium [Moles/Vol] 139 mmol/L Normal 136-145 [facility] Comment on above: Performed By: #### C BC, ADIFF, GFR, BMP, ANEU #### [address] [address] Urea nitrogen [Mass/Vol] 14 mg/dL Normal 7-18 [facility] ([place]) Comment on above: Performed By: #### C BC, ADIFF, GFR, BMP, ANEU #### [address] [address] CBCon 04-16-2023 Erythrocyte distribution width (RBC) [Ratio] 13.7 % Normal 11.5-14.5 [facility] ([place]) Comment on above: Performed By: #### C BC, ADIFF, GFR, BMP, ANEU #### [address] [address] Hematocrit (Bld) [Volume fraction] 34.8 % Low 37.0-47.0 [facility] ([place]) Comment on above: Performed By: #### C BC, ADIFF, GFR, BMP, ANEU #### [address] [address] Hgb 11.8 G/dL Low 12.0-16.0 [facility] ([place]) Comment on above: Performed By: #### C BC, ADIFF, GFR, BMP, ANEU #### [address] [address] MCH (RBC) [Entitic mass] 33.3 pg High 27.0-31.2 [facility] ([place]) Comment on above: Performed By: #### C BC, ADIFF, GFR, BMP, ANEU #### [address] [address] MCHC 33.9 G/dL Normal 33.0-37.0 [facility] ([place]) Comment on above: Performed By: #### C BC, ADIFF, GFR, BMP, ANEU #### [address] [address] MCV (RBC) [Entitic vol] 98.2 fL High 80.0-94.0 [facility] ([place]) Comment on above: Performed By: #### C BC, ADIFF, GFR, BMP, ANEU #### [address] [address] Platelet 139 10 3/mcL Normal 130-400 [facility] ([place]) Comment on above: Performed By: #### C BC, ADIFF, GFR, BMP, ANEU #### [place] [address] Platelet mean volume (Bld) [Entitic vol] 9.3 fL Normal 7.4-10.4 [facility] ([place]) Comment on above: Performed By: #### C BC, ADIFF, GFR, BMP, ANEU #### [address] [address] RBC 3.55 10 6/mcL Low 4.20-5.40 [facility] ([place]) Comment on above: Performed By: #### C BC, ADIFF, GFR, BMP, ANEU #### [address] [address] WBC 5.7 10 3/mcL Normal 4.6-10.8 [facility] ([place]) Comment on above: Performed By: #### C BC, ADIFF, GFR, BMP, ANEU #### [address] [address] LABORATORYOrdered By: SYSTEM SYSTEM on 04-16-2023 Basophil, Absolute 0.0 103/mcL Invalid Interpretation Code 0.0 - 0.2 10^3/mcL AO Workflow SS Basophils/100 WBC (Bld) 0.7 % Invalid Interpretation Code 0.0 - 2.5 % AO Workflow SS Calcium [Mass/Vol] 8.7 mg/dL Invalid Interpretation Code 8.4 - 10.2 mg/dL AO ADM SS Chloride [Moles/Vol] 103 mmol/L Invalid Interpretation Code 98 - 107 mmol/L AO ADM SS CO2 [Moles/Vol] 29 mmol/L Invalid Interpretation Code 23 - 31 mmol/L AO ADM SS Creatinine [Mass/Vol] 0.74 mg/dL Invalid Interpretation Code 0.55 - 1.02 mg/dL AO ADM SS Electrolyte Balance 7.0 mEq/L Invalid Interpretation Code 4.0 - 15.0 mEq/L AO ADM SS Eosinophil, Absolute 0.1 103/mcL Invalid Interpretation Code 0.0 - 0.4 10^3/mcL AO Workflow SS Eosinophils/100 WBC (Bld) 1.6 % Invalid Interpretation Code 0.0 - 7.0 % AO Workflow SS Erythrocyte distribution width (RBC) [Ratio] 13.7 % Invalid Interpretation Code 11.5 - 14.5 % AO Workflow SS GFR/1.73 sq M.predicted among blacks MDRD (S/P/Bld) [Vol rate/Area] 92 ml/min/1.73sqm Invalid Interpretation Code AO Chemistry S Comment on above: Interpretive Data: GFR Population mean for , Non- Americans Ages 20-29 = 116 mL/min/1.73 sq.m. Ages 30-39 = 107 mL/min/1.73 sq.m. Ages 40-49 = 99 mL/min/1.73 sq.m. Ages 50-59 = 93 mL/min/1.73 sq.m. Ages 60-69 = 85 mL/min/1.73 sq.m. Ages 70+ = 75 mL/min/1.73 sq.m. Chronic Kidney Disease: Less than 60 mL/min/1.73 square meters End Stage Renal Disease: Less than 15 mL/min/1.73 square meters GFR/1.73 sq M.predicted among non-blacks MDRD (S/P/Bld) [Vol rate/Area] 76 ml/min/1.73sqm Invalid Interpretation Code AO Chemistry S Comment on above: Interpretive Data: GFR Population mean for , Non- Americans Ages 20-29 = 116 mL/min/1.73 sq.m. Ages 30-39 = 107 mL/min/1.73 sq.m. Ages 40-49 = 99 mL/min/1.73 sq.m. Ages 50-59 = 93 mL/min/1.73 sq.m. Ages 60-69 = 85 mL/min/1.73 sq.m. Ages 70+ = 75 mL/min/1.73 sq.m. Chronic Kidney Disease: Less than 60 mL/min/1.73 square meters End Stage Renal Disease: Less than 15 mL/min/1.73 square meters Glucose [Mass/Vol] 137 mg/dL Invalid Interpretation Code 83 - 110 mg/dL AO ADM SS Hematocrit (Bld) [Volume fraction] 34.8 % Invalid Interpretation Code 37.0 - 47.0 % AO Workflow SS Hemoglobin (Bld) [Mass/Vol] 11.8 G/dL Invalid Interpretation Code 12.0 - 16.0 G/dL AO Workflow SS Lymphocyte, Absolute 0.6 103/mcL Invalid Interpretation Code 0.8 - 3.9 10^3/mcL AO Workflow SS Lymphocytes/100 WBC (Bld) 11.4 % Invalid Interpretation Code 10.0 - 50.0 % AO Workflow SS MCH (RBC) [Entitic mass] 33.3 pg Invalid Interpretation Code 27.0 - 31.2 pg AO Workflow SS MCHC 33.9 G/dL Invalid Interpretation Code 33.0 - 37.0 G/dL AO Workflow SS MCV (RBC) [Entitic vol] 98.2 fL Invalid Interpretation Code 80.0 - 94.0 fL AO Workflow SS Monocyte, Absolute 0.6 103/mcL Invalid Interpretation Code 0.2 - 1.0 10^3/mcL AO Workflow SS Monocytes/100 WBC (Bld) 10.6 % Invalid Interpretation Code 1.7 - 13.0 % AO Workflow SS Neutrophil, Absolute 4.3 103/mcL Invalid Interpretation Code 2.9 - 6.2 10^3/mcL AO Workflow SS Neutrophils/100 WBC (Bld) 75.7 % Invalid Interpretation Code 37.0 - 80.0 % AO Workflow SS Platelet mean volume (Bld) [Entitic vol] 9.3 fL Invalid Interpretation Code 7.4 - 10.4 fL AO Workflow SS Platelets (Bld) [#/Vol] 139 103/mcL Invalid Interpretation Code 130 - 400 10^3/mcL AO Workflow SS Potassium [Moles/Vol] 4.3 mmol/L Invalid Interpretation Code 3.5 - 5.1 mmol/L AO ADM SS RBC (Bld) [#/Vol] 3.55 106/mcL Invalid Interpretation Code 4.20 - 5.40 10^6/mcL AO Workflow SS Sodium [Moles/Vol] 139 mmol/L Invalid Interpretation Code 136 - 145 mmol/L AO ADM SS Urea nitrogen [Mass/Vol] 14 mg/dL Invalid Interpretation Code 7 - 18 mg/dL AO ADM SS Urea nitrogen/Creatinine [Mass ratio] 19 ratio Invalid Interpretation Code 7 - 27 ratio AO ADM SS WBC (Bld) [#/Vol] 5.7 103/mcL Invalid Interpretation Code 4.6 - 10.8 10^3/mcL AO Workflow SS .Auto Diffon 04-15-2023 Basophil, Absolute 0.0 10 3/mcL Normal 0.0-0.2 [facility] ([place]) Comment on above: Performed By: #### C BC, ADIFF, GFR, BMP, ANEU #### [address] [address] Basophils/100 WBC (Bld) 0.2 % Normal 0.0-2.5 [facility] ([place]) Comment on above: Performed By: #### C BC, ADIFF, GFR, BMP, ANEU #### [address] [address] Eosinophil, Absolute 0.0 10 3/mcL Normal 0.0-0.4 Replaced by [facility] ([place]) Comment on above: Performed By: #### C BC, ADIFF, GFR, BMP, ANEU #### [address] [address] Eosinophils/100 WBC (Bld) 0.0 % Normal 0.0-7.0 [facility] ([place]) Comment on above: Performed By: #### C BC, ADIFF, GFR, BMP, ANEU #### [address] [address] Lymphocyte, Absolute 0.7 10 3/mcL Low 0.8-3.9 Replaced by [facility] ([place]) Comment on above: Performed By: #### C BC, ADIFF, GFR, BMP, ANEU #### [address] [address] Lymphocytes/100 WBC (Bld) 8.5 % Low 10.0-50.0 [facility] ([place]) Comment on above: Performed By: #### C BC, ADIFF, GFR, BMP, ANEU #### [address] [address] Monocyte, Absolute 0.7 10 3/mcL Normal 0.2-1.0 [facility] ([place]) Comment on above: Performed By: #### C BC, ADIFF, GFR, BMP, ANEU #### [address] [address] Monocytes/100 WBC (Bld) 9.1 % Normal 1.7-13.0 [facility] ([place]) Comment on above: Performed By: #### C BC, ADIFF, GFR, BMP, ANEU #### [address] [address] Neutrophils/100 WBC (Bld) 82.2 % High 37.0-80.0 [facility] ([place]) Comment on above: Performed By: #### C BC, ADIFF, GFR, BMP, ANEU #### [address] [address] .GFRon 04-15-2023 GFR 87 ml/min/1.73sqm Normal [facility] ([place]) Comment on above: Result Comment: GFR Population mean for , Non- Americans Ages 20-29 = 116 mL/min/1.73 sq.m. Ages 30-39 = 107 mL/min/1.73 sq.m. Ages 40-49 = 99 mL/min/1.73 sq.m. Ages 50-59 = 93 mL/min/1.73 sq.m. Ages 60-69 = 85 mL/min/1.73 sq.m. Ages 70+ = 75 mL/min/1.73 sq.m. Chronic Kidney Disease: Less than 60 mL/min/1.73 square meters End Stage Renal Disease: Less than 15 mL/min/1.73 square meters Performed By: #### C BC, ADIFF, GFR, BMP, ANEU #### [address] [address] GFR Non- 72 ml/min/1.73sqm Normal [facility] ([place]) Comment on above: Result Comment: GFR Population mean for , Non- Americans Ages 20-29 = 116 mL/min/1.73 sq.m. Ages 30-39 = 107 mL/min/1.73 sq.m. Ages 40-49 = 99 mL/min/1.73 sq.m. Ages 50-59 = 93 mL/min/1.73 sq.m. Ages 60-69 = 85 mL/min/1.73 sq.m. Ages 70+ = 75 mL/min/1.73 sq.m. Chronic Kidney Disease: Less than 60 mL/min/1.73 square meters End Stage Renal Disease: Less than 15 mL/min/1.73 square meters Performed By: #### C BC, ADIFF, GFR, BMP, ANEU #### [address] [address] .NEUABSon 04-15-2023 Neutrophil, Absolute 6.6 10 3/mcL High 2.9-6.2 Replaced by [facility] ([place] Comment on above: Performed By: #### C BC, ADIFF, GFR, BMP, ANEU #### [address] [address] BMPon 04-15-2023 BUN/Creatinine Ratio 31 ratio High 7-27 [facility] ([place]) Comment on above: Performed By: #### C BC, ADIFF, GFR, BMP, ANEU #### [address] [address] Calcium [Mass/Vol] 8.5 mg/dL Normal 8.4-10.2 [facility] [place] Comment on above: Performed By: #### C BC, ADIFF, GFR, BMP, ANEU #### [address] [address] Chloride [Moles/Vol] 106 mmol/L Normal 98-107 [facility] ([place]) Comment on above: Performed By: #### C BC, ADIFF, GFR, BMP, ANEU #### [address] [address] CO2 [Moles/Vol] 27 mmol/L Normal 23-31 [facility] ([place]) Comment on above: Performed By: #### C BC, ADIFF, GFR, BMP, ANEU #### [address] [address] Creatinine [Mass/Vol] 0.77 mg/dL Normal 0.55-1.02 [facility] ([place]) Comment on above: Performed By: #### C BC, ADIFF, GFR, BMP, ANEU #### [address] [address] Electrolyte Balance 7.0 mEq/L Normal 4.0-15.0 [facility] ([place]) Comment on above: Performed By: #### C BC, ADIFF, GFR, BMP, ANEU #### [address] [address] Glucose [Mass/Vol] 129 mg/dL High 83-110 [facility] [place] Comment on above: Performed By: #### C BC, ADIFF, GFR, BMP, ANEU #### [address] [address] Potassium [Moles/Vol] 5.0 mmol/L Normal 3.5-5.1 [facility] ([place]) Comment on above: Performed By: #### C BC, ADIFF, GFR, BMP, ANEU #### [address] [address] Sodium [Moles/Vol] 140 mmol/L Normal 136-145 [facility] [place] Comment on above: Performed By: #### C BC, ADIFF, GFR, BMP, ANEU #### [address] [address] Urea nitrogen [Mass/Vol] 24 mg/dL High 7-18 [facility] ([place]) Comment on above: Performed By: #### C BC, ADIFF, GFR, BMP, ANEU #### [address] [address] CBCon 04-15-2023 Erythrocyte distribution width (RBC) [Ratio] 13.6 % Normal 11.5-14.5 [facility] ([place]) Comment on above: Performed By: #### C BC, ADIFF, GFR, BMP, ANEU #### [address] [address] Hematocrit (Bld) [Volume fraction] 34.2 % Low 37.0-47.0 [facility] ([place]) Comment on above: Performed By: #### C BC, ADIFF, GFR, BMP, ANEU #### [address] [address] Hgb 11.6 G/dL Low 12.0-16.0 [facility] ([place]) Comment on above: Performed By: #### C BC, ADIFF, GFR, BMP, ANEU #### [address] [address] MCH (RBC) [Entitic mass] 33.3 pg High 27.0-31.2 [facility] ([place]) Comment on above: Performed By: #### C BC, ADIFF, GFR, BMP, ANEU #### [address] [address] MCHC 34.0 G/dL Normal 33.0-37.0 [facility] ([place] Comment on above: Performed By: #### C BC, ADIFF, GFR, BMP, ANEU #### [address] [address] MCV (RBC) [Entitic vol] 98.1 fL High 80.0-94.0 [facility] ([place]) Comment on above: Performed By: #### C BC, ADIFF, GFR, BMP, ANEU #### [address] [address] Platelet 145 10 3/mcL Normal 130-400 [facility] ([place]) Comment on above: Performed By: #### C BC, ADIFF, GFR, BMP, ANEU #### [address] [address] Platelet mean volume (Bld) [Entitic vol] 9.7 fL Normal 7.4-10.4 [facility] ([place]) Comment on above: Performed By: #### C BC, ADIFF, GFR, BMP, ANEU #### [id number] [place], [place] [address] RBC 3.48 10 6/mcL Low 4.20-5.40 [facility] ([place]) Comment on above: Performed By: #### C BC, ADIFF, GFR, BMP, ANEU #### [address] [place], [place] [address] WBC 8.0 10 3/mcL Normal 4.6-10.8 [facility] ([place]) Comment on above: Performed By: #### C BC, ADIFF, GFR, BMP, ANEU #### [place] [place] [place], [place] [address] LABORATORYOrdered By: SYSTEM SYSTEM on 04-15-2023 Basophil, Absolute 0.0 103/mcL Invalid Interpretation Code 0.0 - 0.2 10^3/mcL AO Workflow SS Basophils/100 WBC (Bld) 0.2 % Invalid Interpretation Code 0.0 - 2.5 % AO Workflow SS Calcium [Mass/Vol] 8.5 mg/dL Invalid Interpretation Code 8.4 - 10.2 mg/dL AO ADM SS Chloride [Moles/Vol] 106 mmol/L Invalid Interpretation Code 98 - 107 mmol/L AO ADM SS CO2 [Moles/Vol] 27 mmol/L Invalid Interpretation Code 23 - 31 mmol/L AO ADM SS Creatinine [Mass/Vol] 0.77 mg/dL Invalid Interpretation Code 0.55 - 1.02 mg/dL AO ADM SS Electrolyte Balance 7.0 mEq/L Invalid Interpretation Code 4.0 - 15.0 mEq/L AO ADM SS Eosinophil, Absolute 0.0 103/mcL Invalid Interpretation Code 0.0 - 0.4 10^3/mcL AO Workflow SS Eosinophils/100 WBC (Bld) 0.0 % Invalid Interpretation Code 0.0 - 7.0 % AO Workflow SS Erythrocyte distribution width (RBC) [Ratio] 13.6 % Invalid Interpretation Code 11.5 - 14.5 % AO Workflow SS GFR/1.73 sq M.predicted among blacks MDRD (S/P/Bld) [Vol rate/Area] 87 ml/min/1.73sqm Invalid Interpretation Code AO Chemistry S Comment on above: Interpretive Data: GFR Population mean for , Non- Americans Ages 20-29 = 116 mL/min/1.73 sq.m. Ages 30-39 = 107 mL/min/1.73 sq.m. Ages 40-49 = 99 mL/min/1.73 sq.m. Ages 50-59 = 93 mL/min/1.73 sq.m. Ages 60-69 = 85 mL/min/1.73 sq.m. Ages 70+ = 75 mL/min/1.73 sq.m. Chronic Kidney Disease: Less than 60 mL/min/1.73 square meters End Stage Renal Disease: Less than 15 mL/min/1.73 square meters GFR/1.73 sq M.predicted among non-blacks MDRD (S/P/Bld) [Vol rate/Area] 72 ml/min/1.73sqm Invalid Interpretation Code AO Chemistry S Comment on above: Interpretive Data: GFR Population mean for , Non- Americans Ages 20-29 = 116 mL/min/1.73 sq.m. Ages 30-39 = 107 mL/min/1.73 sq.m. Ages 40-49 = 99 mL/min/1.73 sq.m. Ages 50-59 = 93 mL/min/1.73 sq.m. Ages 60-69 = 85 mL/min/1.73 sq.m. Ages 70+ = 75 mL/min/1.73 sq.m. Chronic Kidney Disease: Less than 60 mL/min/1.73 square meters End Stage Renal Disease: Less than 15 mL/min/1.73 square meters Glucose [Mass/Vol] 129 mg/dL Invalid Interpretation Code 83 - 110 mg/dL AO ADM SS Hematocrit (Bld) [Volume fraction] 34.2 % Invalid Interpretation Code 37.0 - 47.0 % AO Workflow SS Hemoglobin (Bld) [Mass/Vol] 11.6 G/dL Invalid Interpretation Code 12.0 - 16.0 G/dL AO Workflow SS Lymphocyte, Absolute 0.7 103/mcL Invalid Interpretation Code 0.8 - 3.9 10^3/mcL AO Workflow SS Lymphocytes/100 WBC (Bld) 8.5 % Invalid Interpretation Code 10.0 - 50.0 % AO Workflow SS MCH (RBC) [Entitic mass] 33.3 pg Invalid Interpretation Code 27.0 - 31.2 pg AO Workflow SS MCHC 34.0 G/dL Invalid Interpretation Code 33.0 - 37.0 G/dL AO Workflow SS MCV (RBC) [Entitic vol] 98.1 fL Invalid Interpretation Code 80.0 - 94.0 fL AO Workflow SS Monocyte, Absolute 0.7 103/mcL Invalid Interpretation Code 0.2 - 1.0 10^3/mcL AO Workflow SS Monocytes/100 WBC (Bld) 9.1 % Invalid Interpretation Code 1.7 - 13.0 % AO Workflow SS Neutrophil, Absolute 6.6 103/mcL Invalid Interpretation Code 2.9 - 6.2 10^3/mcL AO Workflow SS Neutrophils/100 WBC (Bld) 82.2 % Invalid Interpretation Code 37.0 - 80.0 % AO Workflow SS Platelet mean volume (Bld) [Entitic vol] 9.7 fL Invalid Interpretation Code 7.4 - 10.4 fL AO Workflow SS Platelets (Bld) [#/Vol] 145 103/mcL Invalid Interpretation Code 130 - 400 10^3/mcL AO Workflow SS Potassium [Moles/Vol] 5.0 mmol/L Invalid Interpretation Code 3.5 - 5.1 mmol/L AO ADM SS RBC (Bld) [#/Vol] 3.48 106/mcL Invalid Interpretation Code 4.20 - 5.40 10^6/mcL AO Workflow SS Sodium [Moles/Vol] 140 mmol/L Invalid Interpretation Code 136 - 145 mmol/L AO ADM SS Urea nitrogen [Mass/Vol] 24 mg/dL Invalid Interpretation Code 7 - 18 mg/dL AO ADM SS Urea nitrogen/Creatinine [Mass ratio] 31 ratio Invalid Interpretation Code 7 - 27 ratio AO ADM SS WBC (Bld) [#/Vol] 8.0 103/mcL Invalid Interpretation Code 4.6 - 10.8 10^3/mcL AO Workflow SS Gel ABOon 04-14-2023 ABO/Rh Interp Positive Invalid Interpretation Code [facility] ([place]) Comment on above: Performed By: #### C BC, ADIFF, GFR, BMP, ANEU #### [address] [address] Gel ABSon 04-14-2023 Antibody Screen Gel Negative Normal [facility] ([place]) Comment on above: Performed By: #### C BC, ADIFF, GFR, BMP, ANEU #### [address] [address] LABORATORYOrdered By: Toby Jesus on 04-14-2023 ABO/Rh Interp Positive Invalid Interpretation Code AO BB SS Antibody Screen Gel Negative ABSC (04/14/23 11:44 AM) Invalid Interpretation Code AO BB SS XR FLUORO 1-2 HRS TECH TIMEo n 04-14-2023 XR FLUORO 1-2 HRS TECH TIME ORIGINAL Images acquired, not reported on this accession number. Normal [facility] ([place]) XR HIP RIGHT W/PELVIS 4 VIEW Son 04-14-2023 XR HIP RIGHT W/PELVIS 4 VIEWS ORIGINAL EXAMINATION: ONE XRAY VIEW OF THE PELVIS AND TWO XRAY VIEWS RIGHT HIP 04/14/2023 4:06 pm COMPARISON: None. HISTORY: ORDERING SYSTEM PROVIDED HISTORY: Reason for Exam: Status Post Arthroplasty FINDINGS: Right hip arthroplasty postsurgical changes. Well-seated hardware. No unexpected radiopaque foreign body. Left hip arthroplasty hardware partially imaged. Degenerative changes of the lumbosacral spine. IMPRESSION: Right hip arthroplasty postsurgical changes. Interpreted by: Nigel Hernandez Preliminary Report By: Nigel Hernandez Electronically signed By Nigel Hernandez Dictated Date: 04/14/2023 4:11:33 PM Prelim Date: 04/14/2023 4:12:15 PM Sign Date: 04/14/2023 4:12:15 PM Ordering Provider: AMBROSE SANTOS Normal [facility] ([place]) .Auto Diffon 03-16-2023 Basophil, Absolute 0.1 10 3/mcL Normal 0.0-0.2 [facility] ([place]) Comment on above: Performed By: #### G FR, ALB, CBC, ANEU, ADIFF, ABOG, ANSG, BMP #### [address] [address] Basophils/100 WBC (Bld) 1.1 % Normal 0.0-2.5 [facility] ([place]) Comment on above: Performed By: #### G FR, ALB, CBC, ANEU, ADIFF, ABOG, ANSG, BMP #### [id number] [place], [place] [address] Eosinophil, Absolute 0.1 10 3/mcL Normal 0.0-0.4 Replaced by [facility] ([place]) Comment on above: Performed By: #### G FR, ALB, CBC, ANEU, ADIFF, ABOG, ANSG, BMP #### [address] [address] Eosinophils/100 WBC (Bld) 1.9 % Normal 0.0-7.0 [facility] ([place]) Comment on above: Performed By: #### G FR, ALB, CBC, ANEU, ADIFF, ABOG, ANSG, BMP #### [address] [address] Lymphocyte, Absolute 1.2 10 3/mcL Normal 0.8-3.9 Replaced by [facility] ([place] Comment on above: Performed By: #### G FR, ALB, CBC, ANEU, ADIFF, ABOG, ANSG, BMP #### [address] [address] Lymphocytes/100 WBC (Bld) 21.6 % Normal 10.0-50.0 [facility] ([place]) Comment on above: Performed By: #### G FR, ALB, CBC, ANEU, ADIFF, ABOG, ANSG, BMP #### [address] [address] Monocyte, Absolute 0.4 10 3/mcL Normal 0.2-1.0 [facility] ([place]) Comment on above: Performed By: #### G FR, ALB, CBC, ANEU, ADIFF, ABOG, ANSG, BMP #### [address] [address] Monocytes/100 WBC (Bld) 7.8 % Normal 1.7-13.0 [facility] ([place]) Comment on above: Performed By: #### G FR, ALB, CBC, ANEU, ADIFF, ABOG, ANSG, BMP #### [address] [address] Neutrophils/100 WBC (Bld) 67.6 % Normal 37.0-80.0 [facility] ([place]) Comment on above: Performed By: #### G FR, ALB, CBC, ANEU, ADIFF, ABOG, ANSG, BMP #### [address] [address] .GFRon 03-16-2023 GFR 87 ml/min/1.73sqm Normal [facility] ([place]) Comment on above: Result Comment: GFR Population mean for , Non- Americans Ages 20-29 = 116 mL/min/1.73 sq.m. Ages 30-39 = 107 mL/min/1.73 sq.m. Ages 40-49 = 99 mL/min/1.73 sq.m. Ages 50-59 = 93 mL/min/1.73 sq.m. Ages 60-69 = 85 mL/min/1.73 sq.m. Ages 70+ = 75 mL/min/1.73 sq.m. Chronic Kidney Disease: Less than 60 mL/min/1.73 square meters End Stage Renal Disease: Less than 15 mL/min/1.73 square meters Performed By: #### C BC, ADIFF, GFR, BMP, ANEU #### [address] [address] GFR Non- 72 ml/min/1.73sqm Normal [facility] ([place]) Comment on above: Result Comment: GFR Population mean for , Non- Americans Ages 20-29 = 116 mL/min/1.73 sq.m. Ages 30-39 = 107 mL/min/1.73 sq.m. Ages 40-49 = 99 mL/min/1.73 sq.m. Ages 50-59 = 93 mL/min/1.73 sq.m. Ages 60-69 = 85 mL/min/1.73 sq.m. Ages 70+ = 75 mL/min/1.73 sq.m. Chronic Kidney Disease: Less than 60 mL/min/1.73 square meters End Stage Renal Disease: Less than 15 mL/min/1.73 square meters Performed By: #### C BC, ADIFF, GFR, BMP, ANEU #### [address] [address] .NEUABSon 03-16-2023 Neutrophil, Absolute 3.8 10 3/mcL Normal 2.9-6.2 Replaced by [facility] ([place]) Comment on above: Performed By: #### G FR, ALB, CBC, ANEU, ADIFF, ABOG, ANSG, BMP #### [address] [address] ALBon 03-16-2023 Albumin Level 4.3 G/dL Normal 3.4-4.8 [facility] ([place]) Comment on above: Performed By: #### C BC, ADIFF, GFR, BMP, ANEU #### [address] [address] BMPon 03-16-2023 BUN/Creatinine Ratio 38 ratio High 7-27 [facility] ([place]) Comment on above: Performed By: #### G FR, ALB, CBC, ANEU, ADIFF, ABOG, ANSG, BMP #### [place] [id number] Calcium [Mass/Vol] 9.6 mg/dL Normal 8.4-10.2 [facility] Comment on above: Performed By: #### G FR, ALB, CBC, ANEU, ADIFF, ABOG, ANSG, BMP #### [address] [address] Chloride [Moles/Vol] 103 mmol/L Normal 98-107 [facility] ([place]) Comment on above: Performed By: #### G FR, ALB, CBC, ANEU, ADIFF, ABOG, ANSG, BMP #### [address] [address] CO2 [Moles/Vol] 31 mmol/L Normal 23-31 [facility] ([place]) Comment on above: Performed By: #### G FR, ALB, CBC, ANEU, ADIFF, ABOG, ANSG, BMP #### [address] [address] Creatinine [Mass/Vol] 0.77 mg/dL Normal 0.55-1.02 [facility] ([place]) Comment on above: Performed By: #### G FR, ALB, CBC, ANEU, ADIFF, ABOG, ANSG, BMP #### [place] [id number] Electrolyte Balance 6.0 mEq/L Normal 4.0-15.0 [facility] ([place]) Comment on above: Performed By: #### G FR, ALB, CBC, ANEU, ADIFF, ABOG, ANSG, BMP #### [address] [address] Glucose [Mass/Vol] 112 mg/dL High 83-110 [facility] [place] Comment on above: Performed By: #### G FR, ALB, CBC, ANEU, ADIFF, ABOG, ANSG, BMP #### [address] [address] Potassium [Moles/Vol] 4.5 mmol/L Normal 3.5-5.1 [facility] ([place]) Comment on above: Performed By: #### G FR, ALB, CBC, ANEU, ADIFF, ABOG, ANSG, BMP #### [address] [address] Sodium [Moles/Vol] 140 mmol/L Normal 136-145 [facility] [place] Comment on above: Performed By: #### G FR, ALB, CBC, ANEU, ADIFF, ABOG, ANSG, BMP #### [address] [address] Urea nitrogen [Mass/Vol] 29 mg/dL High 7-18 [facility] ([place]) Comment on above: Performed By: #### G FR, ALB, CBC, ANEU, ADIFF, ABOG, ANSG, BMP #### [address] [address] CBCon 03-16-2023 Erythrocyte distribution width (RBC) [Ratio] 13.5 % Normal 11.5-14.5 [facility] ([place]) Comment on above: Order Comment: Pre-A dmission Testing Performed By: #### G FR, ALB, CBC, ANEU, ADIFF, ABOG, ANSG, BMP #### [address] [address] Hematocrit (Bld) [Volume fraction] 42.1 % Normal 37.0-47.0 [facility] ([place]) Comment on above: Order Comment: Pre-A dmission Testing Performed By: #### G FR, ALB, CBC, ANEU, ADIFF, ABOG, ANSG, BMP #### [address] [address] Hgb 14.1 G/dL Normal 12.0-16.0 [facility] ([place]) Comment on above: Order Comment: Pre-A dmission Testing Performed By: #### G FR, ALB, CBC, ANEU, ADIFF, ABOG, ANSG, BMP #### [address] [address] MCH (RBC) [Entitic mass] 32.6 pg High 27.0-31.2 [facility] ([place]) Comment on above: Order Comment: Pre-A dmission Testing Performed By: #### G FR, ALB, CBC, ANEU, ADIFF, ABOG, ANSG, BMP #### [place] [address] MCHC 33.4 G/dL Normal 33.0-37.0 [facility] ([place]) Comment on above: Order Comment: Pre-A dmission Testing Performed By: #### G FR, ALB, CBC, ANEU, ADIFF, ABOG, ANSG, BMP #### [address] [address] MCV (RBC) [Entitic vol] 97.7 fL High 80.0-94.0 [facility] ([place]) Comment on above: Order Comment: Pre-A dmission Testing Performed By: #### G FR, ALB, CBC, ANEU, ADIFF, ABOG, ANSG, BMP #### [address] [address] Platelet 189 10 3/mcL Normal 130-400 [facility] ([place]) Comment on above: Order Comment: Pre-A dmission Testing Performed By: #### G FR, ALB, CBC, ANEU, ADIFF, ABOG, ANSG, BMP #### [address] [address] Platelet mean volume (Bld) [Entitic vol] 10.1 fL Normal 7.4-10.4 [facility] ([place]) Comment on above: Order Comment: Pre-A dmission Testing Performed By: #### G FR, ALB, CBC, ANEU, ADIFF, ABOG, ANSG, BMP #### [address] [address] RBC 4.31 10 6/mcL Normal 4.20-5.40 [facility] ([place]) Comment on above: Order Comment: Pre-A dmission Testing Performed By: #### G FR, ALB, CBC, ANEU, ADIFF, ABOG, ANSG, BMP #### [address] [address] WBC 5.6 10 3/mcL Normal 4.6-10.8 [facility] ([place]) Comment on above: Order Comment: Pre-A dmission Testing Performed By: #### G FR, ALB, CBC, ANEU, ADIFF, ABOG, ANSG, BMP #### [address] [address] Gel ABOon 03-16-2023 ABO/Rh Interp Positive Invalid Interpretation Code [facility] ([place]) Comment on above: Order Comment: SURG ANAND 9/12 -AC Performed By: #### C BC, ADIFF, GFR, BMP, ANEU #### [address] [address] Gel ABSon 03-16-2023 Antibody Screen Gel Negative Normal [facility] ([place]) Comment on above: Order Comment: SURG ANAND 9/12 -AC Performed By: #### C BC, ADIFF, GFR, BMP, ANEU #### [address] [address] LABORATORYOrdered By: Va Fink on 03-16-2023 ABO/Rh Interp Positive Invalid Interpretation Code AO BB SS Antibody Screen Gel Negative ABSC (03/16/23 10:31 AM) Invalid Interpretation Code AO BB SS LABORATORYOrdered By: SYSTEM SYSTEM on 03-16-2023 Albumin BCP dye [Mass/Vol] 4.3 G/dL Invalid Interpretation Code 3.4 - 4.8 G/dL AO ADM SS Basophil, Absolute 0.1 103/mcL Invalid Interpretation Code 0.0 - 0.2 10^3/mcL AO Workflow SS Basophils/100 WBC (Bld) 1.1 % Invalid Interpretation Code 0.0 - 2.5 % AO Workflow SS Calcium [Mass/Vol] 9.6 mg/dL Invalid Interpretation Code 8.4 - 10.2 mg/dL AO ADM SS Chloride [Moles/Vol] 103 mmol/L Invalid Interpretation Code 98 - 107 mmol/L AO ADM SS CO2 [Moles/Vol] 31 mmol/L Invalid Interpretation Code 23 - 31 mmol/L AO ADM SS Creatinine [Mass/Vol] 0.77 mg/dL Invalid Interpretation Code 0.55 - 1.02 mg/dL AO ADM SS Electrolyte Balance 6.0 mEq/L Invalid Interpretation Code 4.0 - 15.0 mEq/L AO ADM SS Eosinophil, Absolute 0.1 103/mcL Invalid Interpretation Code 0.0 - 0.4 10^3/mcL AO Workflow SS Eosinophils/100 WBC (Bld) 1.9 % Invalid Interpretation Code 0.0 - 7.0 % AO Workflow SS Erythrocyte distribution width (RBC) [Ratio] 13.5 % Invalid Interpretation Code 11.5 - 14.5 % AO Workflow SS GFR/1.73 sq M.predicted among blacks MDRD (S/P/Bld) [Vol rate/Area] 87 ml/min/1.73sqm Invalid Interpretation Code AO Chemistry S Comment on above: Interpretive Data: GFR Population mean for , Non- Americans Ages 20-29 = 116 mL/min/1.73 sq.m. Ages 30-39 = 107 mL/min/1.73 sq.m. Ages 40-49 = 99 mL/min/1.73 sq.m. Ages 50-59 = 93 mL/min/1.73 sq.m. Ages 60-69 = 85 mL/min/1.73 sq.m. Ages 70+ = 75 mL/min/1.73 sq.m. Chronic Kidney Disease: Less than 60 mL/min/1.73 square meters End Stage Renal Disease: Less than 15 mL/min/1.73 square meters GFR/1.73 sq M.predicted among non-blacks MDRD (S/P/Bld) [Vol rate/Area] 72 ml/min/1.73sqm Invalid Interpretation Code AO Chemistry S Comment on above: Interpretive Data: GFR Population mean for , Non- Americans Ages 20-29 = 116 mL/min/1.73 sq.m. Ages 30-39 = 107 mL/min/1.73 sq.m. Ages 40-49 = 99 mL/min/1.73 sq.m. Ages 50-59 = 93 mL/min/1.73 sq.m. Ages 60-69 = 85 mL/min/1.73 sq.m. Ages 70+ = 75 mL/min/1.73 sq.m. Chronic Kidney Disease: Less than 60 mL/min/1.73 square meters End Stage Renal Disease: Less than 15 mL/min/1.73 square meters Glucose [Mass/Vol] 112 mg/dL Invalid Interpretation Code 83 - 110 mg/dL AO ADM SS Hematocrit (Bld) [Volume fraction] 42.1 % Invalid Interpretation Code 37.0 - 47.0 % AO Workflow SS Hemoglobin (Bld) [Mass/Vol] 14.1 G/dL Invalid Interpretation Code 12.0 - 16.0 G/dL AO Workflow SS Lymphocyte, Absolute 1.2 103/mcL Invalid Interpretation Code 0.8 - 3.9 10^3/mcL AO Workflow SS Lymphocytes/100 WBC (Bld) 21.6 % Invalid Interpretation Code 10.0 - 50.0 % AO Workflow SS MCH (RBC) [Entitic mass] 32.6 pg Invalid Interpretation Code 27.0 - 31.2 pg AO Workflow SS MCHC 33.4 G/dL Invalid Interpretation Code 33.0 - 37.0 G/dL AO Workflow SS MCV (RBC) [Entitic vol] 97.7 fL Invalid Interpretation Code 80.0 - 94.0 fL AO Workflow SS Monocyte, Absolute 0.4 103/mcL Invalid Interpretation Code 0.2 - 1.0 10^3/mcL AO Workflow SS Monocytes/100 WBC (Bld) 7.8 % Invalid Interpretation Code 1.7 - 13.0 % AO Workflow SS Neutrophil, Absolute 3.8 103/mcL Invalid Interpretation Code 2.9 - 6.2 10^3/mcL AO Workflow SS Neutrophils/100 WBC (Bld) 67.6 % Invalid Interpretation Code 37.0 - 80.0 % AO Workflow SS Platelet mean volume (Bld) [Entitic vol] 10.1 fL Invalid Interpretation Code 7.4 - 10.4 fL AO Workflow SS Platelets (Bld) [#/Vol] 189 103/mcL Invalid Interpretation Code 130 - 400 10^3/mcL AO Workflow SS Potassium [Moles/Vol] 4.5 mmol/L Invalid Interpretation Code 3.5 - 5.1 mmol/L AO ADM SS RBC (Bld) [#/Vol] 4.31 106/mcL Invalid Interpretation Code 4.20 - 5.40 10^6/mcL AO Workflow SS Sodium [Moles/Vol] 140 mmol/L Invalid Interpretation Code 136 - 145 mmol/L AO ADM SS Urea nitrogen [Mass/Vol] 29 mg/dL Invalid Interpretation Code 7 - 18 mg/dL AO ADM SS Urea nitrogen/Creatinine [Mass ratio] 38 ratio Invalid Interpretation Code 7 - 27 ratio AO ADM SS WBC (Bld) [#/Vol] 5.6 103/mcL Invalid Interpretation Code 4.6 - 10.8 10^3/mcL AO Workflow SS LABORATORYOrdered By: Demetra asher on 03-16-2023 MRSA DNA MARIAA+probe Ql (Unsp spec) Not Detected 1 (03/16/23 10:31 AM) Invalid Interpretation Code Not Detected Auto Viro/Sero SS Comment on above: Result Comment: Note s MRSA PCR Int MRSA DNA not detected by Real-Time Polymerase Chain Reaction (PCR). A negative result may be due to intermittent colonization. Colonization may vary depending on patient treatment, patient status, or exposure to high-risk environments.As with all PCR based in vitro diagnostic tests, extremely low levels of target below the limit of detection of the assay may be detected, but results may not be reproducible. Invalid Interpretation Code Auto Viro/Sero SS MRSAPCRon 03-16-2023 MRSA (PCR) Not detected Normal Not Detected [facility] ([place]) Comment on above: Result Comment: Note s Performed By: #### M RSAPCR #### [place] [address] MRSA PCR Int Normal [facility] ([place]) Comment on above: Result Comment: MRSA DNA not detected by Real-Time Polymerase Chain Reaction (PCR). A negative result may be due to intermittent colonization. Colonization may vary depending on patient treatment, patient status, or exposure to high-risk environments. As with all PCR based in vitro diagnostic tests, extremely low levels of target below the limit of detection of the assay may be detected, but results may not be reproducible. See Below Performed By: #### M RSAPCR #### [place] [address] [address] 12-31-2022 CNPSaad Telephone (OBGYWM) MICHAELA LUNA ([id number]) 1940 F Date Time Provider Department 12/31/22 GUNNER STEVENS During your visit today, we recorded the following information about you: Lisbet Schafer RN 12/31/2022 9:55 AM Signed Patient requesting mammogram order be faxed to [facility]. Order to RR to sign. Patient aware this will be sent to [facility] today. No need to call her back. Lisbet Corbin RN 12/31/2022 2:11 PM Signed Faxed Allergies As of Date: 12/31/2022 Noted Allergy Reaction NARCOTICS (OPIOIDS - MORPHINE DARIANA*06/02/2014 Comments: Nausea/spaces out TAPE (ADHESIVE TAPE (ROSINS)) 06/23/2016 14 - Other: See Comments Comments: Surgical tape, when removed took her skin off. Date Reviewed: 02/11/2022 Reviewed by: Gunner Stevens MD - Fully Assessed Reason for Visit: Orders [681] Prescriptions as of 12/31/2022 - fexofenadine (SILVANA) 60 mg tablet Take by mouth. - meloxicam (MOBIC) 15 mg tablet - Hard/Soft/Gas Permeable Prods (SYSTANE CONTACTS) drop Use in both eyes. - Eye Lubricant Combination No.1 (FRESHKOTE) 2-0.9-1.8 % drop Use in both eyes. Three to four times a day - atorvastatin (LIPITOR) 10 mg tablet Take 10 mg by mouth once daily. - CYCLOSPORINE (RESTASIS OPHTHALMIC) Use in eyes twice daily. - MULTIVITAMIN ORAL Take by mouth. - CALCIUM CARBONATE/VITAMIN D3 (CALCIUM + D ORAL) Take by mouth. - DOCOSAHEXANOIC ACID/EPA (FISH OIL ORAL) Take by mouth. 1200-1400mg - BIOTIN ORAL Take by mouth. 10,000mg QD - NAPROXEN ORAL Take 220 mg by mouth. 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 Chloride [Moles/Vol] 107 mmol/L 98-107 [facility] Work Phone: Cholesterol [Mass/Vol] 227 mg/dL <200 [facility] Work Phone: Comment on above: <200 mg/dL Desirable 200-240 mg/dL Borderline >240 mg/dL High Risk Glucose [Mass/Vol] 120 mg/dL 74-[address] [facility] Work Phone: Comment on above: Fasting Glucose resu lt from 100 to 125 mg/dL suggests IMPAIRED HOMEOSTASIS per A.D.A. criteria. Potassium [Moles/Vol] 4.2 mmol/L 3.5-5.1 [facility] Work Phone: Protein [Mass/Vol] 7.2 g/dL 6.4-8.[address] [facility] Work Phone: Sodium [Moles/Vol] 141 mmol/L 136-[address] [facility] Work Phone: Triglyceride [Mass/Vol] 81 mg/dL <199 [facility] Work Phone: Comment on above: The drugs N-Acetylcy steine and Metamizole may falsely depress this assay.Serum Triglycerides Reference Interval Normal <150 mg/dL Borderline high 150 - 199 mg/dL High 200 - 499 mg/dL Very High > or = 500 mg/dL Laboratory - Chemistry and C hemistry - challengeon 07-14-2022 ALP [Catalytic activity/Vol] 64 U/L 45-117 [facility] Work Phone: ALT [Catalytic activity/Vol] 36 U/L 13-56 [facility] Work Phone: CO2 [Moles/Vol] 29.0 mmol/L 21.0-32.0 [facility] Work Phone: Globulin (S) [Mass/Vol] 3.2 g/dL 2.2-4.2 [facility] Work Phone: Urea nitrogen/Creatinine [Mass ratio] 24.9 mg/mg 10-20 [facility] Work Phone: No Panel Informationon 07-14 Estimated GFR (MDRD) Amer 94 mL/min >60 [facility] Work Phone: Comment on above: GFR Calc Estimated GFR (MDRD) Non-Af Amer 78 mL/min >60 [facility] Work Phone: Comment on above: Non- GFR Calc Thyroid Stimulating Hormone (TSH) 2.47 uIU/mL 0.358-3.74 [facility] Work Phone: Serum or plasma albumin trevor urement (mass/volume)on 07-14-2022 Albumin [Mass/Vol] 4.0 g/dL 3.2-5.[address] [facility] Work Phone: Serum or plasma albumin/glob ulin mass ratioon 07-14-2022 Albumin/Globulin [Mass ratio] 1.2 {ratio} 0.9-2.4 [facility] Work Phone: Serum or plasma calcium tervor urement (mass/volume)on 07-14-2022 Calcium [Mass/Vol] 10.1 mg/dL 8.5-10.[address] [facility] Work Phone: Serum or plasma cholesterol in HDL measurement (mass/volume)on 07-14-2022 Cholesterol in HDL [Mass/Vol] 110 mg/dL >40 [facility] Work Phone: Comment on above: The drugs N-Acetylcy steine and Metamizole may falsely depress this assay. Reference Range HDL <40 mg/dL Low HDL Cholesterol HDL >or= 60 mg/dL High HDL Cholesterol Serum or plasma cholesterol in VLDL measurement (mass/volume)on 07-14-2022 Cholesterol in VLDL [Mass/Vol] 16 mg/dL 5-40 [facility] Work Phone: Serum or plasma creatinine m easurement (mass/volume)on 07-14-2022 Creatinine [Mass/Vol] 0.76 mg/dL 0.55-1.02 [facility] Work Phone: Comment on above: The validity of the calculated GFR & GFRAA in patients over 70 years has not been determined. Clinical correlation is essential. Serum or plasma low density lipoprotein (LDL) cholesterol measurement (mass/volume)on 07-14-2022 Cholesterol in LDL [Mass/Vol] 101 mg/dL 0-130 [facility] Work Phone: Serum or plasma urea nitroge n measurement (mass/volume)on 07-14-2022 Urea nitrogen [Mass/Vol] 19 mg/dL 7-18 [facility] Work Phone: Thin prep Papanicolaou smear with manual screeningon 07-14-2022 Thin prep Papanicolaou smear with manual screening 28 U/L 15-37 [facility] Work Phone: Thin prep Papanicolaou smear with manual screening 5 5-15 [facility] Work Phone: Whole blood hemoglobin A1c/t otal hemoglobin ratio (mass fraction)on 07-14-2022 HbA1c (Bld) [Mass fraction] 6.5 % 3.8-5.6 [facility] Work Phone: Comment on above: Normal < 5.7 % Predi abetic 5.7 - 6.4 % Diabetic >or= 6.5 % Please note range changes. Basophil percentageon 2021 Bilirubin [Mass/Vol] 0.30 mg/dL 0.20-1.00 [facility] Work Phone: Comment on above: For patients on eltr ombopag therapy, use of Dimension [place] TBIL is not recommended. Chloride [Moles/Vol] 104 mmol/L 98-107 [facility] Work Phone: Glucose [Mass/Vol] 107 mg/dL 74-[address] [facility] Work Phone: Comment on above: Fasting Glucose resu lt from 100 to 125 mg/dL suggests IMPAIRED HOMEOSTASIS per A.D.A. criteria. Potassium [Moles/Vol] 4.2 mmol/L 3.5-5.1 [facility] Work Phone: Protein [Mass/Vol] 7.2 g/dL 6.4-8.[address] [facility] Work Phone: Sodium [Moles/Vol] 141 mmol/L 136-[address] [facility] Work Phone: WBC (Bld) [#/Vol] 5.1 10*3/uL 4.4-11.[address] [facility] Work Phone: Blood erythrocytes count (nu mber/volume)on 01-27-2022 RBC (Bld) [#/Vol] 4.18 10*6/uL 4.2-5.4 [facility] Work Phone: Blood hemoglobin measurement (mass/volume)on 01-27-2022 Hemoglobin (Bld) [Mass/Vol] 13.8 g/dL 12.0-15.0 [facility] Work Phone: Blood platelet mean volumeon 01-27-2022 Platelet mean volume (Bld) [Entitic vol] 12.3 fL 6.2-12.0 [facility] Work Phone: Determination of erythrocyte mean corpuscular volume (MCV)on 01-27-2022 MCV (RBC) [Entitic vol] 102.9 fL 81-99 [facility] Work Phone: Hematocrit Auto (Bld) [Volum e fraction]on 01-27-2022 Hematocrit (Bld) [Volume fraction] 43.0 % 37-47 [facility] Work Phone: Laboratory - Chemistry and C hemistry - challengeon 01-27-2022 ALP [Catalytic activity/Vol] 72 U/L 45-117 [facility] Work Phone: ALT [Catalytic activity/Vol] 37 U/L 13-56 [facility] Work Phone: CO2 [Moles/Vol] 28.0 mmol/L 21.0-32.0 [facility] Work Phone: Cobalamin (Vitamin B12) [Mass/Vol] 1008 pg/mL 211-911 [facility] Work Phone: Globulin (S) [Mass/Vol] 3.3 g/dL 2.2-4.2 [facility] Work Phone: Urea nitrogen/Creatinine [Mass ratio] 32.2 mg/mg 10-20 [facility] Work Phone: Laboratory - Hematology and Cell countson 01-27-2022 Erythrocyte distribution width (RBC) [Entitic vol] 47.9 fL 35.1-43.9 [facility] Work Phone: Erythrocyte distribution width (RBC) [Ratio] 12.6 % 11.6-14.6 [facility] Work Phone: MCH (RBC) [Entitic mass] 33.0 pg 27.0-32.0 [facility] Work Phone: MCHC Auto (RBC) [Mass/Vol]on 01-27-2022 MCHC (RBC) [Mass/Vol] 32.1 g/dL 32-36 [facility] Work Phone: No Panel Informationon 01-27 Estimated GFR (MDRD) Amer 101 mL/min >60 [facility] Work Phone: Comment on above: GFR Calc Estimated GFR (MDRD) Non-Af Amer 84 mL/min >60 [facility] Work Phone: Comment on above: Non- GFR Calc Platelets bldon 01-27-2022 Platelets (Bld) [#/Vol] 202 10*3/uL 150-450 [facility] Work Phone: Serum or plasma albumin trevor urement (mass/volume)on 01-27-2022 Albumin [Mass/Vol] 3.9 g/dL 3.2-5.[address] [facility] Work Phone: Serum or plasma albumin/glob ulin mass ratioon 01-27-2022 Albumin/Globulin [Mass ratio] 1.2 {ratio} 0.9-2.4 [facility] Work Phone: Serum or plasma calcium trevor urement (mass/volume)on 01-27-2022 Calcium [Mass/Vol] 9.6 mg/dL 8.5-10.[address] [facility] Work Phone: Serum or plasma creatinine m easurement (mass/volume)on 01-27-2022 Creatinine [Mass/Vol] 0.72 mg/dL 0.55-1.02 [facility] Work Phone: Comment on above: The validity of the calculated GFR & GFRAA in patients over 70 years has not been determined. Clinical correlation is essential. Serum or plasma folate measu rement (mass/volume)on 01-27-2022 Folate [Mass/Vol] 56.30 ng/mL 3.1-55.[address] [facility] Work Phone: Serum or plasma urea nitroge n measurement (mass/volume)on 01-27-2022 Urea nitrogen [Mass/Vol] 23 mg/dL 7-18 [facility] Work Phone: Thin prep Papanicolaou smear with manual screeningon 01-27-2022 Thin prep Papanicolaou smear with manual screening 28 U/L 15-37 [facility] Work Phone: Thin prep Papanicolaou smear with manual screening 9 5-15 [facility] Work Phone: Basophil percentageon 2021 Creatinine [Mass/Vol] 0.6 mg/dL 0.55-1.02 [facility] Work Phone: No Panel Informationon 11-11 Bedside Estimated GFR (eGFR) > 60.0000 mL/min >60 [facility] Work Phone: Vital Signs Date Time Vital Sign Value Performing Clinician Facility 04-16-2023 11:41-0400 Body temperature 98.6 [degF] DR AMBROSE SANTOS MD [facility] 04-16-2023 11:41-0400 Diastolic Blood Pressure Non-Invasive [address] AMBROSE SANTOS MD [facility] 04-16-2023 11:41-0400 Heart rate 78 /min DR AMBROSE SANTOS MD [facility] 04-16-2023 11:41-0400 Reason For Taking VItal Signs DR AMBROSE SANTOS MD [facility] 04-16-2023 11:41-0400 Respiratory rate 16 /min DR AMBROSE SANTOS MD [facility] 04-16-2023 11:41-0400 Systolic Blood Pressure Non-Invasive [address] AMBROSE SANTOS MD [facility] 04-16-2023 07:45-0400 Body temperature 98.24 [degF] DR AMBROSE SANTOS MD [facility] 04-16-2023 07:45-0400 Diastolic Blood Pressure Non-Invasive [address] AMBROSE SANTOS MD [facility] 04-16-2023 07:45-0400 Heart rate 76 /min DR AMBROSE SANTOS MD [facility] 04-16-2023 07:45-0400 Reason For Taking VItal Signs DR AMBROSE SANTOS MD [facility] 04-16-2023 07:45-0400 Respiratory rate 16 /min DR AMBROSE SANTOS MD [facility] 04-16-2023 07:45-0400 Systolic Blood Pressure Non-Invasive [address] AMBROSE SANTOS MD [facility] 04-16-2023 04:35-0400 Body temperature 98.24 [degF] DR AMBROSE SANTOS MD [facility] 04-16-2023 04:35-0400 Diastolic Blood Pressure Non-Invasive [address] AMBROSE SANTOS MD [facility] 04-16-2023 04:35-0400 Heart rate 81 /min DR AMBROSE SANTOS MD [facility] 04-16-2023 04:35-0400 Respiratory rate 16 /min DR AMBROSE SANTOS MD [facility] 04-16-2023 04:35-0400 Systolic Blood Pressure Non-Invasive [address] AMBROSE SANTOS MD [facility] 04-15-2023 19:00-0400 Heart rate 78 /min DR AMBROSE SANTOS MD [facility] 04-15-2023 19:00-0400 Reason For Taking VItal Signs DR AMBROSE SANTOS MD [facility] 04-15-2023 16:48-0400 Heart rate 75 /min DR AMBROSE SANTOS MD [facility] 04-14-2023 16:39-0400 Body height [address] AMBROSE SANTOS MD [facility] 04-14-2023 16:39-0400 Body weight 55.[address] AMBROSE SANTOS MD [facility] 04-14-2023 16:39-0400 Body weight 22.76 kg/m2 DR AMBROSE SANTOS MD [facility] 04-14-2023 16:34-0400 Heart rate 85 /min DR AMBROSE SANTOS MD [facility] 04-14-2023 16:17-0400 Heart rate 74 /min DR AMBROSE SANTOS MD [facility] 04-14-2023 15:24-0400 Body temperature 97.34 [degF] DR AMBROSE SANTOS MD [facility] 04-14-2023 15:20-0400 Respiratory Rate - Anes 16 br/min DR AMBROSE SANTOS MD [facility] 04-14-2023 15:15-0400 Respiratory Rate - Anes 13 br/min DR AMBROSE SANTOS MD [facility] 04-14-2023 15:10-0400 Respiratory Rate - Anes 12 br/min DR AMBROSE SANTOS MD [facility] 04-14-2023 14:45-0400 Body temperature 96.8 [degF] DR AMBROSE SANTOS MD [facility] 04-14-2023 11:38-0400 Body height [address] AMBROSE SANTOS MD [facility] 04-14-2023 11:38-0400 Body temperature 97.52 [degF] DR AMBROSE SANTOS MD [facility] 04-14-2023 11:38-0400 Body weight 55.[address] AMBROSE SANTOS MD [facility] 03-16-2023 10:00-[address] AMBROSE SANTOS MD [facility] 03-16-2023 10:00-[address] AMBROSE Morris [facility] 03-16-2023 10:00-0400 Body height [address] AMBROSE SANTOS MD [facility] 03-16-2023 10:00-0400 Body weight 55.[address] AMBROSE SANTOS MD [facility] 03-16-2023 10:00-0400 Body weight 22.76 kg/m2 DR AMBROSE SANTOS MD [facility] 03-16-2023 10:00-0400 Diastolic Blood Pressure Non-Invasive [address] AMBROSE SANTOS MD [facility] 03-16-2023 10:00-0400 Heart rate 82 /min DR AMBROSE SANTOS MD [facility] 03-16-2023 10:00-0400 Respiratory rate 16 /min DR AMBROSE SANTOS MD [facility] 03-16-2023 10:00-0400 Systolic Blood Pressure Non-Invasive [address] AMBROSE SANTOS MD [facility] 02-11-2022 09:34-0400 Diastolic blood pressure 68 mm[Hg] Gunner Stevens MD Work Phone: [facility] 02-11-2022 09:34-0400 Systolic blood pressure 118 mm[Hg] Gunner Stevens MD Work Phone: [facility] 02-11-2022 09:03-0400 Body height 157.5 cm Gunner Stevens MD Work Phone: [facility] 02-11-2022 09:03-0400 Body weight 57.15 kg Gunner Stevens MD Work Phone: [facility] 01-23-2022 18:09-0400 Diastolic blood pressure 76 mm[Hg] Dr. Lala Damon Work Phone: [facility] Work Phone: 01-23-2022 18:09-0400 Systolic blood pressure 168 mm[Hg] Dr. Lala Damon Work Phone: [facility] Work Phone: 01-23-2022 07:55-0400 Body height 162.[address] Lala Damon Work Phone: [facility] Work Phone: 01-23-2022 07:55-0400 Body mass index (BMI) [Ratio] 21.8 kg/m2 Dr. Lala Damon Work Phone: [facility] Work Phone: 01-23-2022 07:55-0400 Body temperature 98.2 [degF] Dr. Lala Damon Work Phone: [facility] Work Phone: 01-23-2022 07:55-0400 Body weight 57.[address] Lala Damon Work Phone: [facility] Work Phone: 01-23-2022 07:55-0400 Heart rate 75 /min Dr. Lala Damon Work Phone: [facility] Work Phone: 01-23-2022 07:55-0400 Respiratory rate 16 /min Dr. Lala Damon Work Phone: [facility] Work Phone: 01-23-2022 07:55-0400 SaO2% (BldA) [Mass fraction] 97 % Dr. Lala Damon Work Phone: [facility] Work Phone: Encounters Encounter Date Encounter Type Care Provider Facility Start: 01-23-2025 ambulatory Jerel Benson Facility:[facility] Start: 12-27-2024 End: 12-27-2024 ambulatory MICHELLE ARSHAD MD [facility] Start: 12-23-2024 End: 12-23-2024 ambulatory Jerel Benson MD Work Phone: [facility] Work Phone: Start: 12-23-2024 End: 12-23-[address] Jerel Benson MD -Laboratory [facility] Start: 12-23-2024 End: 12-23-2024 ambulatory Jerel Benson Facility:[facility] Start: 04-17-2023 End: 05-06-2023 ambulatory SOLA RAO PA-C Facility:[facility] Start: 04-17-2023 End: 05-06-2023 Admission to same day surgery center SOLA RAO PA-C [facility] Start: 04-14-2023 End: 04-16-[address] AMBROSE SANTOS MD Facility:[facility] Start: 04-14-2023 End: 04-16-[address] AMBROSE SANTOS MD [facility] Start: 03-16-2023 End: 03-17-2023 ambulatory BERONICA VILLASENOR DO Facility:[facility] Start: 03-16-2023 End: 03-16-[address] AMBROSE SANTOS MD [facility] Start: 02-19-2023 ambulatory LALA DAMON Fac ility:[facility] Start: 01-20-2023 End: 01-20-2023 ambulatory [facility] Work Phone: Start: 01-20-2023 End: 01-20-2023 Patient encounter procedure [facility] Start: 01-13-2023 End: 01-13-2023 ambulatory [facility] Work Phone: Start: 01-13-2023 End: 01-13-2023 Patient encounter procedure [facility]Out[facility] Bone Densitometry Start: 12-31-2022 Telephone encounter Gunner Stevens MD Work Phone: OB/Gynecology Comment on above: Orders Start: 07-14-2022 End: 07-14-2022 ambulatory [facility] Work Phone: Start: 07-14-2022 End: 07-14-2022 Patient encounter procedure [facility] Karolina Fabiano [facility] Start: 02-11-2022 End: 02-11-2022 Patient encounter procedure Gunner Stevens MD Work Phone: OB/Gynecology Comment on above: Encounter for gyneco logical examination (general) (routine) without abnormal findings (Primary Dx) Start: 02-11-2022 End: 02-11-2022 Patient encounter status Gunner Stevens MD Work Phone: OB/Gynecology Start: 01-27-2022 End: 01-27-[address] [facility] Start: 01-23-2022 End: 01-23-[address] Lala Damon Work Phone: [facility] Neurology Start: 01-10-2022 End: 01-10-2022 Patient encounter procedure [facility] Start: 11-11-2021 End: 11-11-2021 Patient encounter procedure [facility]MRI - [facility] Start: 09-26-2020 End: 09-26-2020 Patient encounter procedure NATALEE Palencia [facility] Start: 08-31-2020 End: 08-31-2020 Patient encounter procedure NATALEE Palencia [facility] Procedures Date Procedure Procedure Detail Performing Clinician Start: 12-23-2024 Vitamin D, 25-hydrox y measurement Jerel Benson MD Work Phone: Comment on above: Vitamin D StatusDefi ciency: <20 ng/mL (50nmol/L)Insufficiency: 20-30 ng/mL (50-75 nmol/L)Sufficiency: 30-100 ng/mL (75-250 nmol/L)Toxicity: >100 ng/mL (>250 nmol/L) Start: 01-20-2023 Screening mammography Start: 01-13-2023 Dual energy X-ray absorptiometry Start: 01-10-2022 Screening mammography Start: 11-11-2021 MRI of brain with contrast Start: 08-03-2006 Total replacement of hip DR AMBROSE SANTOS MD Comment on above: LEFT Colonoscopy DR AMBROSE Bermeo MD Ligation of fallopian tube Arturo SANTOS MD Open reduction of fr acture with internal fixation DR AMBROSE SANTOS MD Comment on above: RIGHT ELBOW Plan of Treatment Date Care Activity Detail Author Start: 04-03-2023 Influenza vaccination INFLUENZA (Sea son Ended) [facility] Start: 08-03-2022 ADVANCE DIRECTIVE DISCUSSION ADVANCE DIRECTIVE DISCUSSION [facility] Start: 08-03-2022 DEPRESSION ASSESSMENT DEPRESSION ASS ESSMENT [facility] Start: 04-03-2022 Influenza vaccination INFLUENZA (#1) [facility] Start: 12-25-2021 COVID-19 VACCINE (5 - Booster for Pfizer series) COVID-19 VACCINE (5 - Booster for Pfizer series) [facility] Start: 08-03-2021 ADVANCE DIRECTIVE DISCUSSION ADVANCE DIRECTIVE DISCUSSION [facility] Start: 06-05-2018 DIABETES SCREEN DIABETES SCREEN [facility] Start: 10-22-2007 PNEUMOCOCCAL: 65+ (1 - PCV) PNEUMOCOCCAL: 65+ (1 - PCV) [facility] Start: 1992 SHINGRIX VACCINE (1 of 2) PERERA GRIX VACCINE (1 of 2) [facility] Start: 1961 Urine microalbumin profile DTAP,TDAP ,TD (1 - Tdap) [facility] Start: 1954 Adult depression scr eening [facility] Immunization Date Immunization Notes Care Provider Fa cili 04-25-2022 influenza virus vacc ine, unspecified formulation DR AMBROSE SANTOS MD [facility] 10-30-2021 SARS-CoV-2 mRNA (cymajqastxb-gzek-ostjgh e) vaccine DR AMBROSE SANTOS MD [facility] 04-27-2021 SARS-CoV-2 mRNA (tozinameran) vaccine DR AMBROSE SANTOS MD [facility] 03-11-[address] AMBROSE SANTOS MD [facility] 01-04-[address] AMBROSE SANTOS MD [facility] 09-26-2020 COVID-19 vaccine, ag e 12+ yr (PFIZER-BIONTECH - PURPLE TOP) Gunner Stevens MD Work Phone: [facility] 08-31-2020 COVID-19 vaccine, ag e 12+ yr (PFIZER-BIONTECH - PURPLE TOP) Gunner Stevens MD Work Phone: [facility] 04-25-2020 influenza virus vacc ine, unspecified formulation DR AMBROSE SANTOS MD [facility] 05-13-2019 influenza virus vacc ine, unspecified formulation DR AMBROSE SANTOS MD [facility] 05-13-2019 pneumococcal polysaccharide vaccine, [address] AMBROSE SANTOS MD [facility] 05-10-2018 influenza virus vacc ine, unspecified formulation DR AMBROSE SANTOS MD [facility] 06-02-2017 influenza virus vacc ine, unspecified formulation DR AMBROSE SANTOS MD [facility] 06-19-2016 influenza virus vacc ine, unspecified formulation DR AMBROSE SANTOS MD [facility] 05-03-[address] Barbara SANTOS MD [facility] 04-27-2015 influenza virus vacc ine, unspecified formulation DR AMBROSE SANTOS MD [facility] 12-18-2014 pneumococcal conjuga te vaccine, [address] AMBROSE SANTOS MD [facility] 05-03-2014 zoster vaccine, live DR CAROLINA SANTOS MD [facility] Payers Date Payer Category Payer Self-pay [id number] 2023 Medicare [id number] 2014 Medicare [id number] 2014 Medicare BCBS MEDICARE OO S ANTHEM BCBS MEDICARE PPO OOS [id number] 2014-Present [phone] [address] [place] [address] PPO [id number] 2014 Medicare BCBS MEDICARE OO S ANTHEM BCBS MEDICARE PPO OOS [id number] 2014-Present [phone] [address] [place] [address] PPO [id number] 1942 Unknown [id number] 1942 Unknown [id number] 1942 Unknown [id number] 1942 Unknown [id number] 1942 Unknown [id number] 1942 Unknown [id number] Medicare [id number] Unknown [id number] Unknown [id number] Social History Date Type Detail Facility Start: 10-30-2021 End: 01-23-2022 Tobacco smoking status MDIS Unknown if ever smoked [facility] Start: 1940 Sex Assigned At Female [facility] Start: 06-02-2014 End: 01-23-2022 Tobacco smoking status MDIS Never smoked tobacco [facility] Start: 06-02-2014 Tobacco use and exposure Smokeless tobacco non-user [facility] Start: 02-11-2022 Alcohol intake Ex-drinker (finding) [facility] Start: 06-02-2014 Tobacco Comment social smoked in the past [facility] Start: 1940 Sex Assigned At Not on file [facility] Sex Assigned At Sex [facility] Functional Status Date Assessment Result Facility 04-17-2023 Functional Status Objective: LE Strength/ROM: Right hip flexion [3/5], abduction [2-/5], adduction [3+/5], extension [2-/5], knee flexion [4-/5], knee extension [3-/5], ankle DF [4+/5], PF [4/5] Left hip flexion [5/5], abduction [5/5], adduction [5/5], extension [5/5], knee flexion [5/5], knee extension [5/5], ankle DF [5/5], PF [5/5] Hip PROM: Left [WNL], Right [WNL within anterior hip precautions] L knee AROM: WNL R knee AROM: flexion [WNL] extension [-3 deg] 30 second sit to stand test: 5 sit to stand from chair with use of no UE support Balance: Tandem stance: Left [16 seconds] Right [8 seconds] Gait: Pt ambulating with FWW with R antalgic gait pattern and slight reduction in gait speed. Stairs: Pt ascending/descending stairs with step-to pattern with rail. FOTO Score: 65/100 [facility] 04-16-2023 Functional Status Nurse Safety Dash russ q2hrs Performed Other: 7AM-12PM [facility] 04-16-2023 Functional Status 2 [facility] 04-16-2023 Functional Status Room check performed [facility] 04-15-2023 Functional Status [facility] 04-15-2023 Functional Status Min A 7 [facility] 04-15-2023 Functional Status [facility] 04-15-2023 Functional Status Supervised [facility] 04-15-2023 Functional Status Single level home [facility] 04-14-2023 Functional Status [facility] 04-14-2023 Functional Status ice chips and sips take n [facility] 04-14-2023 Functional Status None [facility] Mental Status Date Assessment Result Facility 04-16-2023 Mental Status Oriented x 4 [facility] 04-16-2023 Mental Status Oriented x 4 [facility] 04-15-2023 Mental Status [facility] Clinical Notes 02-11-2022 to 04-16-2023 Telephone Encounter - Tala Corbin RN - 12/31/2022 2:11 PM EDTTelephone Encounter - Lisbet Schafer RN - 12/31/2022 9:52 AM EDTRealejandra Stevens MD - 02/11/2022 9:02 AM EDT Note Date & Type Note Facility 04-16-2023 Note Discharge Instructions Thank you for allowing [facility] to assist you with your healthcare needs. The following is important discharge information regarding your hospital visit. Your Care Team [facility] Your Diagnosis Hyperlipidemia Osteoarthritis Post-operative nausea and vomiting What to do next Scheduled Follow-Up Appointments Appointment Type When Where Contact InformationPT Outpatient Evaluation 04/17/2023 11:00 AM EDT [facility] [phone] Follow Up Appointments Follow Up with SOLA RAO PA-C, Orthopedic When 04/27/2023 03:15 PM EDT Why: This is your post-op appointment. Follow-up as scheduled. Where: [facility] [address] [place] [phone] Follow Up with [facility] When 04/17/2023 11:00 AM EDT Why: This is your first physical therapy appointment. Follow-up as scheduled. Where: [address] [place] [phone] The Following Activity and Diet Have Been Ordered for You FOLLOW POST-OP INSTRUCTIONS Allergies Adhesive Bandage narcotic analgesics (Confusion) Medications Please ask your primary doctor or pharmacist before taking any other medication not listed, including over the counter drugs, herbal medications, vitamins and or supplements as they may interact with your home medications. What How Much When Instructions Last Dose New acetaminophen (Tylenol) 1,000 Milligram by mouth Three (3) times a day not to exceed 3000 mg/ day New aspirin (aspirin 81 mg oral delayed release tablet) 1 tab(s) by mouth Two (2) times a day Duration: 28 Days Take 81 mg aspirin twice daily with food for 4 weeks postoperatively for DVT prophylaxis. Pickup at [facility]/pharmacy #[id number] New famotidine (Pepcid 20 mg oral tablet) 1 tab(s) by mouth Once a day [id number] Unchanged atorvastatin (atorvastatin 10 mg oral tablet) 1 tab(s) by mouth Every day Unchanged calcium-vitamin D (calcium-vitamin D 250 mg-12.5 mcg (500 intl units) oral tablet, chewable) 2 tab(s) Chewed Twice daily with meals Unchanged cycloSPORINE ophthalmic (cycloSPORINE 0.05% ophthalmic emulsion) 1 Drops Both eyes Two (2) times a day Unchanged fexofenadine (fexofenadine 30 mg oral tablet, disintegrating) 1 tab(s) by mouth Once a day Unchanged meloxicam (meloxicam 15 mg oral tablet) 1 tab(s) by mouth Once a day Take with food/ milk Unchanged multivitamin (Multivitamin) 1 tab(s) by mouth Every day Pharmacy Information [facility]/pharmacy #[id number]: [address], [place] [phone] Please take this list to your next doctor s visit. Bring all medications you take, including over the counter medications, herbals and other supplements with you to your doctor s visit. Patients and families are reminded to discard old lists and to update any records with all medication providers or retail pharmacies. Education Materials [facility] Post-operative Instructions PLEASE FOLLOW [facility] POST-OP INSTRUCTIONS GIVEN WATCH FOR SIGNS OF INFECTION: call the office ([phone]) if experencing any of the following: (Usually appears 36-48 hours after surgery) Increased temperature (101 degrees Fahrenheit or higher) Redness or swelling Increased uncontrolled pain Foul odor or drainage Calf discomfort Significant swelling Or if having any chest pain, shortness of breath, or difficulty breathing or swallowing call the office or go the nearest Emergency Room. If you have any questions, please call your doctor at the number listed on your follow up instructions. Form: 338A ([id number]) R: 12/07 Additional Information VACCINATE! IT SAVES LIVES! Members of the community who have not yet received the COVID-19 vaccine and would like to receive it can visit one of [facility] vaccine clinics. There are many vaccine clinic locations within the [facility]. For locations and available times, please visit https://gettheshot.coronavirus.[place].gov/. It is important to note that some COVID mobile vaccine clinics are held outdoors and may be canceled in rainy or stormy conditions. To learn more about pediatric vaccinations (ages 5-11), we invite you to visit the [facility] webpage. https://[email or web address] Studioss.org/pa [email or web address]-Gmzhn-Ssdskgwmznd-Freque vgbt-Ifgak-Cjzshmlex.html To learn more about the COVID-19 vaccine, we invite you to visit the CDC website for a list of frequently asked questions.https://www.cdc.gov/cor onavirus/2019-ncov/vaccines/faq.h tml [facility] Patient Portal Access Instructions: Stay connected with your healthcare team and access your personal medical information anytime with the [employer] Patient Portal. Please follow the directions below to create your [employer] account: 1.Access the email account you provided upon registration to the hospital/physician office.2.Look for an invitation email from [facility].3.Open the email and access the invitation link: Accept Invitation to [facility].4.Fill in the required ruth to create your account. To access your account, visit [email or web address]. Click the blue button labeled Access Patient Portal and then log in with the username and password that you created in the steps above. You will be able to view your test results, lab results, a summary of your visits, upcoming appointments and more. There is also a convenient messaging option where you can send secure messages to your provider. In addition, you will have the ability to download any documents or summaries to your computer and/or send the information securely to a physician. Remember that your healthcare information is confidential, so carefully consider who you will allow to register on the [facility] Patient Portal for access to your information. You can also access the [facility] Patient Portal on the [facility] theo. Simply click on Patient Portal and then log into your account. If you would like to receive a full copy of your medical records, please contact the [facility] Medical Records Department by calling [phone], Thursday through Thursday between 8 a.m. and 4:30 p.m. HOW TO SAFELY DISPOSE OF PRESCRIPTION MEDICATIONS Please use one of the following methods to safely dispose of your unused medications. 1.Use a drug disposal kit: the drug disposal pouch allows you to safely discard your old and unused drugs. Ask your nurse to give you one when you are discharged.2.Visit a local take-back location: Many local pharmacies and police departments have programs that collect old and unwanted prescription drugs. Call your local pharmacy or go to http://Kirax.Kidaptive/5J1Kd6h to find one close to you.3.Make use of household items: Use cat litter or old coffee grounds to dispose medications if other options are not available. Mix your drugs with these household products, seal them in an airtight container and throw it into the garbage. Call [facility]: [phone] to be sure your drugs can be disposed of in this way. Some medicines may require a different approach.4.Never flush your medications down the toilet. IF YOU HAVE BEEN PRESCRIBED AN OPIOID FOR PAIN If you have been prescribed an opioid (such as hydrocodone, oxycodone or morphine), it is critical to understand the possible side effects and risks of opioid pain medications. Even when taken as directed, opioids can have several side effects including: Tolerance, meaning you might need to take more of a medication for the same pain relief. Nausea, vomiting and/or constipation. Sleepiness, dizziness, dry mouth, confusion, depression or itching. Physical dependence, meaning you have withdrawal symptoms when a medication is stopped, can develop within a few days. KNOW YOUR RESPONSIBILITIES It is important to know exactly how much and how often to take the opioid pain medications you are prescribed. Never take opioids in higher amounts or more often than prescribed. Do not combine opioids with alcohol or other drugs that cause drowsiness, such as benzodiazepines, also known as benzos, including diazepam and alprazolam, muscle relaxants or sleep aids. Never sell or share prescription opioids. This is illegal. Store opioids in a secure place and out of reach of others (including children, family, friends and visitors). The last page of this document has been signed and retained as a CHART COPY. Signatures Patient Education Materials 5 - [facility] Post-op Instruction 03/2017 (04144) Medication Leaflets My discharge plan and instructions have been reviewed and explained to me and I,MICHAELA LUNA understand my current condition and have read and understand these discharge instructions. I have received a written copy of the plan/instructions. If I have questions, I am aware that I should contact my doctor. Patient/[employer] Signature: Date/Time: Relationship to Patient: ____ Witness Name/Signature: Date/Time: [facility] 04-16-2023 Hospital Discharg e instructions Patient Education 04/16/2023 07:41:45 5 - [facility] Post-op Instruction 03/2017 (25477) [facility] Post-operative Instructions PLEASE FOLLOW [facility] POST-OP INSTRUCTIONS GIVEN WATCH FOR SIGNS OF INFECTION: call the office ([phone]) if experencing any of the following: (Usually appears 36-48 hours after surgery) Increased temperature (101 degrees Fahrenheit or higher) Redness or swelling Increased uncontrolled pain Foul odor or drainage Calf discomfort Significant swelling Or if having any chest pain, shortness of breath, or difficulty breathing or swallowing call the office or go the nearest Emergency Room. If you have any questions, please call your doctor at the number listed on your follow up instructions. Form: 338A ([id number]) R: 12/07 Follow Up Care 02/05/2023 15:12:20 With:[facility] Address: [address] [place] [phone] When:04/17/2023 11:00:00 Comments:This is your first physical therapy appointment. Follow-up as scheduled. With:SOLA RAO PA-C, Orthopedic Address: [facility] [address] [place] [address] [place] [address]- When:04/27/2023 15:15:00 Comments:This is your post-op appointment. Follow-up as scheduled. [facility] 04-16-2023 Note Date of Service April 16, 2023 Subjective The patient was sitting in bed upon examination. Patient denies any chest pain, shortness of breath, dizziness, lightheadedness, nausea or vomiting, or calf pain. No adverse overnight events. Pain has been controlled on medications. Patient is doing much better than yesterday. The nausea has resolved. She is only using Tylenol for pain control with the Mobic to start today. She has not required any narcotics. With physical therapy she was able to walk over 100 feet yesterday afternoon. Patient has outpatient physical therapy set up and she will be using the hospital transportation. She has daughter at home that can help assist her. Patient is wishing to go home today. She is doing much better. Objective Vitals and Measurements T: 36.8 C (Oral) TMIN: 36.5 C (Oral) TMAX: 36.8 C (Oral) HR: 81 RR: 16 BP: 136/55 SpO2: 98% Intake and Output 7AM Yesterday to 7AM Today Intake and Output (Last 24 hours) Intake Supplement Intake 10.00 Output Total Summary Total Intake 10.00 Total Output 0.00 Fluid Balance 10.00 Physical Exam Vital signs stable, afebrile SCDs and GASTON hose are in place bilaterally Right hip is soft and supple Patient is able to plantarflex and dorsiflex actively Sensation is intact to saphenous, sural, superficial and deep peroneal, and tibial distribution Dressing is clean dry and intact Negative signs and symptoms of DVT, negative Homans bilaterally Weight Dosing Weight: 55.4 kg (04/14/23) Dosing Weight: 55.4 kg (04/14/23) Medications Medications (18) Active Scheduled: (10) acetaminophen 500 mg Tablet 1,000 mg 2 tab(s), Oral, q8h aspirin 81 mg Chewable 81 mg 1 tab(s), Oral, BIDM atorvastatin 10 mg tablet 10 mg 1 tab(s), Oral, Daily cycloSPORINE opht 0.05% Emul 0.4 mL PF 1 drop(s), Eyes, both, BID docusate sodium 100 mg Capsule 100 mg 1 cap(s), Oral, BID docusate-senna (Senokot S) 50 mg-8.6 mg Tablet 2 tab(s), Oral, BID famotidine 20 mg tablet 20 mg 1 tab(s), Oral, qDay magnesium hydroxide 8% Suspension 30 mL UD 30 mL, Oral, Daily meloxicam 7.5 mg tablet 7.5 mg 1 tab(s), Oral, BIDM multivitamin (Myadec) with minerals Therapeutic Multiple Vitamins with Minerals Tablet 1 tab(s), Oral, qDayM Continuous: (0) PRN: (8) acetaminophen 325 mg Tablet 650 mg 2 tab(s), Oral, q4h diphenhydramine 25 mg tablet 25 mg 1 tab(s), Oral, q6h diphenhyDRAMINE 50 mg/mL (1 mL) INJ 25 mg 0.5 mL, IV Push, q6h morphine 2 mg/mL 1 mL syringe 2 mg 1 mL, IV Push, q1h ondansetron 2 mg/ 1 mL 2 mL INJ 4 mg 2 mL, IV Push, q8h prochlorperazine 10 mg/2 mL vial 5 mg 1 mL, IV Push, q6h sodium biphosphate-sodium phosphate 19 gm-7 gm Enema 133 mL, Rectal, qDay tramadol 50 mg Tablet 50 mg 1 tab(s), Oral, q6h Lab Results 04/15 05:06 WBC: 8.0 Hgb: 11.6 L Hct: 34.2 L Platelet: 145 Neutrophil %: 82.2 H Glucose Level: 129 H Sodium Level: 140 Potassium Level: 5.0 BUN: 24 H Creatinine Lvl (s): 0.77 EKG No qualifying data available. Assessment/Plan Hyperlipidemia Osteoarthritis 1. Status post right direct anterior total hip arthroplasty postop day #2 2. Continue pain medications: Tylenol, meloxicam primarily. Patient attempted narcotic yesterday however this may have been contributing to her nausea. She has not required any narcotic. She has been well managed with her pain on Tylenol. Meloxicam will start today. Do not take any other nonsteroidal anti-inflammatories while on meloxicam/Mobic 3. DVT prophylaxis: Take 81 mg aspirin twice daily with food for 4 weeks postoperatively for DVT prophylaxis. Patient denies past history of DVT or pulmonary embolism 4. Physical therapy: Weightbearing as tolerated with walker. Patient has done well with afternoon physical therapy yesterday. She was able to walk over 100 feet. She has outpatient physical therapy scheduled. She will use hospital transportation. 5. Encouraged incentive spirometry 6. Continue postoperative medical management per medicine: Case was discussed with medicine with regards to the nausea/vomiting. Appreciate recommendations postoperatively. patient's nausea has resolved. She is feeling much better today. 8. Disposition: Patient is doing very well this morning. Nausea has resolved. She has been doing well with afternoon therapy yesterday. Her pain has been well controlled. Patient is wishing to go home. At this time we will plan for discharge home today after physical therapy. She has outpatient physical therapy scheduled and she will use hospital transportation. She will follow-up per postop instructions. She would like her medications E scribed to [facility] in [facility]. Upon discharge she will contact her office with any concerns or questions. I have reviewed the [place] Automated Rx Reporting System (OARRS) report for this patient for refill pattern and other prescriber involvement as part of the appropriate surveillance for the provision of acute and chronic controlled medications. The report was requested and reviewed on the date of this entry, and was considered in the prescribing process This dictation was created using voice recognition software. Phonetic and/or grammatical errors may exist. Post-operative nausea and vomiting Digitally Signed by SOLA RAO PA-C on 04/16/2023 07:41 AM [facility] 04-15-2023 Note Date of Service April 15, 2023 Subjective The patient was sitting in bed upon examination. Patient denies any chest pain, shortness of breath, dizziness, lightheadedness, or calf pain. No adverse overnight events. Pain has been controlled on medications. Patient has had some increased nausea this morning. She has history of postoperative nausea and vomiting. I am concerned with placing scopolamine patch due to patient's age and potential side effects. Case was discussed with medicine and we will continue to treat with medication at this time. I would also like to make sure patient is appropriate for discharge home with physical therapy. I do feel she will need an additional night as she has not been out of bed yet due to the nausea. She denies chest pain or shortness of breath. Her pain in the hip has been overall controlled. Objective Vitals and Measurements T: 36.6 C (Oral) TMIN: 36 C TMAX: 36.6 C (Oral) HR: 66(Apical) RR: 16 BP: 133/52 SpO2: 94% HT: 156 cm WT: 55.4 kg BMI: 22.76 Intake and Output 7AM Yesterday to 7AM Today Intake and Output (Last 24 hours) Intake Administration Information 1347.30 Supplement Intake 0.00 Output Intra-Op EBL 200.00 Urine Count 1.00 Diaper Count 1.00 Total Summary Total Intake 1347.30 Total Output 200.00 Fluid Balance 1147.30 Physical Exam Vital signs stable, afebrile Right hip is soft and supple SCDs and GASTON hose are in place bilaterally Patient is able to plantarflex and dorsiflex actively Sensation is intact to saphenous, sural, superficial and deep peroneal, and tibial distribution Dressing is clean dry and intact Negative signs and symptoms of DVT, negative Homans bilaterally Weight Dosing Weight: 55.4 kg (04/14/23) Dosing Weight: 55.4 kg (04/14/23) Medications Medications (22) Active Scheduled: (13) acetaminophen 500 mg Tablet 1,000 mg 2 tab(s), Oral, q8h aspirin 81 mg Chewable 81 mg 1 tab(s), Oral, BIDM atorvastatin 10 mg tablet 10 mg 1 tab(s), Oral, Daily bisacodyl 5 mg EC tablet 10 mg 2 tab(s), Oral, Once cycloSPORINE opht 0.05% Emul 0.4 mL PF 1 drop(s), Eyes, both, BID docusate sodium 100 mg Capsule 100 mg 1 cap(s), Oral, BID docusate-senna (Senokot S) 50 mg-8.6 mg Tablet 2 tab(s), Oral, BID famotidine 20 mg tablet 20 mg 1 tab(s), Oral, qDay magnesium hydroxide 8% Suspension 30 mL UD 30 mL, Oral, Daily meloxicam 7.5 mg tablet 7.5 mg 1 tab(s), Oral, BIDM multivitamin (Myadec) with minerals Therapeutic Multiple Vitamins with Minerals Tablet 1 tab(s), Oral, qDayM ondansetron 2 mg/ 1 mL 2 mL INJ 4 mg 2 mL, IV Push, q8h tramadol 50 mg Tablet 50 mg 1 tab(s), Oral, q6hr Continuous: (0) PRN: (9) acetaminophen 325 mg Tablet 650 mg 2 tab(s), Oral, q4h diphenhydramine 25 mg tablet 25 mg 1 tab(s), Oral, q6h diphenhyDRAMINE 50 mg/mL (1 mL) INJ 25 mg 0.5 mL, IV Push, q6h ketorolac 30 mg/mL (1 mL) vial 15 mg 0.5 mL, IV Push, q6h morphine 2 mg/mL 1 mL syringe 2 mg 1 mL, IV Push, q1h ondansetron 2 mg/ 1 mL 2 mL INJ 4 mg 2 mL, IV Push, q8h prochlorperazine 10 mg/2 mL vial 5 mg 1 mL, IV Push, q6h sodium biphosphate-sodium phosphate 19 gm-7 gm Enema 133 mL, Rectal, qDay tramadol 50 mg Tablet 50 mg 1 tab(s), Oral, q6h Lab Results 04/15 05:06 WBC: 8.0 Hgb: 11.6 L Hct: 34.2 L Platelet: 145 Neutrophil %: 82.2 H Glucose Level: 129 H Sodium Level: 140 Potassium Level: 5.0 BUN: 24 H Creatinine Lvl (s): 0.77 EKG No qualifying data available. Assessment/Plan 1. Status post right direct anterior total hip arthroplasty postop day #1 2. Continue pain medications: Tylenol, meloxicam primarily. Tramadol is on board for breakthrough pain however patient would like to avoid narcotics if possible. 3. DVT prophylaxis: Take 81 mg aspirin twice daily with food for 4 weeks postoperatively for DVT prophylaxis. Patient denies past history of DVT or pulmonary embolism 4. Physical therapy: Weightbearing as tolerated with walker. Patient has not been out of bed yet due to the nausea. 5. H & H: 11.6/34.2, asymptomatic. Postoperative anemia from surgery without intraoperative complications. At this time there is no need for treatment. 6. Encouraged incentive spirometry 7. Continue postoperative medical management per medicine: Case was discussed with medicine with regards to the nausea/vomiting. Appreciate recommendations postoperatively. 8. Disposition: Due to patient's nausea she has not been able to get out of bed for ambulation. Appreciate recommendations from medicine. Again I would like to try to avoid any scopolamine patch due to the potential side effects and patient's age. I would also like assessment from physical therapy today with regards to appropriate discharge planning. She does have outpatient physical therapy scheduled. I would like to see how she does throughout today and for possible discharge tomorrow. I have reviewed the [place] Automated Rx Reporting System (OARRS) report for this patient for refill pattern and other prescriber involvement as part of the appropriate surveillance for the provision of acute and chronic controlled medications. The report was requested and reviewed on the date of this entry, and was considered in the prescribing process This dictation was created using voice recognition software. Phonetic and/or grammatical errors may exist. Digitally Signed by SOLA RAO PA-C on 04/15/2023 07:57 AM [facility] 04-14-2023 Note ORIGINAL EXAMINATION: ONE XRAY VIEW OF THE PELVIS AND TWO XRAY VIEWS RIGHT HIP 04/14/2023 4:06 pm COMPARISON: None. HISTORY: ORDERING SYSTEM PROVIDED HISTORY: Reason for Exam: Status Post Arthroplasty FINDINGS: Right hip arthroplasty postsurgical changes. Well-seated hardware. No unexpected radiopaque foreign body. Left hip arthroplasty hardware partially imaged. Degenerative changes of the lumbosacral spine. IMPRESSION: Right hip arthroplasty postsurgical changes. Interpreted by: Nigel Hernandez Preliminary Report By: Nigel Hernandez Electronically signed By Nigel Hernandez Dictated Date: 04/14/2023 4:11:33 PM Prelim Date: 04/14/2023 4:12:15 PM Sign Date: 04/14/2023 4:12:15 PM Ordering Provider: AMBROSE SANTOS [facility] 04-14-2023 Note ORIGINAL Images acquired, not reported on this accession number. 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 Assessment Postanesthesia assessment Vitals: Vital signs from flowsheet : Vital Signs 04/14/2023 15:20 EDT Respiratory Rate - Anes 16 br/min br/min Systolic Blood Pressure Non-Invasive 89 mmHg mmHg Diastolic Blood Pressure Non-Invasive 40 mmHg mmHg 04/14/2023 15:15 EDT Heart Rate Monitored 70 bpm bpm Respiratory Rate - Anes 13 br/min br/min Systolic Blood Pressure Non-Invasive 91 mmHg mmHg Diastolic Blood Pressure Non-Invasive 42 mmHg mmHg 04/14/2023 15:10 EDT Heart Rate Monitored 68 bpm bpm Respiratory Rate - Anes 12 br/min br/min Systolic Blood Pressure Non-Invasive 87 mmHg mmHg Diastolic Blood Pressure Non-Invasive 40 mmHg mmHg 04/14/2023 15:05 EDT Heart Rate Monitored 67 bpm bpm Respiratory Rate - Anes 11 br/min br/min Systolic Blood Pressure Non-Invasive 99 mmHg mmHg Diastolic Blood Pressure Non-Invasive 43 mmHg mmHg 04/14/2023 15:00 EDT Temperature (Route Not Specified) 36 DegC DegC Heart Rate Monitored 65 bpm bpm Respiratory Rate - Anes 11 br/min br/min Systolic Blood Pressure Non-Invasive 99 mmHg mmHg Diastolic Blood Pressure Non-Invasive 46 mmHg mmHg 04/14/2023 14:55 EDT Heart Rate Monitored 67 bpm bpm Respiratory Rate - Anes 12 br/min br/min Systolic Blood Pressure Non-Invasive 96 mmHg mmHg Diastolic Blood Pressure Non-Invasive 53 mmHg mmHg 04/14/2023 14:50 EDT Heart Rate Monitored 67 bpm bpm Respiratory Rate - Anes 0 br/min br/min Systolic Blood Pressure Non-Invasive 94 mmHg mmHg Diastolic Blood Pressure Non-Invasive 49 mmHg mmHg 04/14/2023 14:45 EDT Temperature (Route Not Specified) 36 DegC DegC Heart Rate Monitored 66 bpm bpm Respiratory Rate - Anes 10 br/min br/min Systolic Blood Pressure Non-Invasive 97 mmHg mmHg Diastolic Blood Pressure Non-Invasive 51 mmHg mmHg 04/14/2023 14:40 EDT Heart Rate Monitored 64 bpm bpm Respiratory Rate - Anes 5 br/min br/min Systolic Blood Pressure Non-Invasive 105 mmHg mmHg Diastolic Blood Pressure Non-Invasive 53 mmHg mmHg 04/14/2023 14:35 EDT Heart Rate Monitored 58 bpm bpm Respiratory Rate - Anes 7 br/min br/min Systolic Blood Pressure Non-Invasive 103 mmHg mmHg Diastolic Blood Pressure Non-Invasive 52 mmHg mmHg 04/14/2023 14:30 EDT Temperature (Route Not Specified) 36 DegC DegC Heart Rate Monitored 60 bpm bpm Respiratory Rate - Anes 10 br/min br/min Systolic Blood Pressure Non-Invasive 108 mmHg mmHg Diastolic Blood Pressure Non-Invasive 53 mmHg mmHg 04/14/2023 14:25 EDT Heart Rate Monitored 63 bpm bpm Respiratory Rate - Anes 13 br/min br/min Systolic Blood Pressure Non-Invasive 119 mmHg mmHg Diastolic Blood Pressure Non-Invasive 54 mmHg mmHg 04/14/2023 14:20 EDT Heart Rate Monitored 74 bpm bpm Respiratory Rate - Anes 0 br/min br/min Systolic Blood Pressure Non-Invasive 103 mmHg mmHg Diastolic Blood Pressure Non-Invasive 53 mmHg mmHg 04/14/2023 14:15 EDT Temperature (Route Not Specified) 36 DegC DegC Heart Rate Monitored 67 bpm bpm Respiratory Rate - Anes 12 br/min br/min Systolic Blood Pressure Non-Invasive 108 mmHg mmHg Diastolic Blood Pressure Non-Invasive 54 mmHg mmHg 04/14/2023 14:10 EDT Heart Rate Monitored 63 bpm bpm Respiratory Rate - Anes 16 br/min br/min Systolic Blood Pressure Non-Invasive 121 mmHg mmHg Diastolic Blood Pressure Non-Invasive 59 mmHg mmHg 04/14/2023 14:05 EDT Heart Rate Monitored 67 bpm bpm Respiratory Rate - Anes 0 br/min br/min Systolic Blood Pressure Non-Invasive 127 mmHg mmHg Diastolic Blood Pressure Non-Invasive 61 mmHg mmHg 04/14/2023 14:02 EDT Systolic Blood Pressure Non-Invasive 135 mmHg mmHg Diastolic Blood Pressure Non-Invasive 101 mmHg mmHg 04/14/2023 14:00 EDT Respiratory Rate - Anes 23 br/min br/min 04/14/2023 13:55 EDT Respiratory Rate - Anes 0 br/min br/min 04/14/2023 11:38 EDT Temperature Temporal Artery 36.4 DegC Apical Heart Rate 69 bpm Respiratory Rate 18 br/min Systolic Blood Pressure Non-Invasive 160 mmHg HI Diastolic Blood Pressure Non-Invasive 64 mmHg , Measurements from flowsheet . Mental status: alert & oriented x 4. Respiratory function: respirations are non-labored. Respiratory support: none. CV function: Normal rate. Cardiovascular support: none. Pain. Nausea status: see nursing documentation of medications. Postoperative hydration status: within normal limits. Digitally Signed by ESTEPHANIE ORO on 04/14/2023 03:26 PM [facility] 04-14-2023 Anesthesiology Consult note Patient: MICHAELA LUNA Age: 82 years Sex: Female : 1940 Associated Diagnoses: None Author: ESTEPHANIE ORO Preoperative Information Time of last food or liquid consumption: 04/14/2023 00:00:00 Anesthesia history Patient's history: negative. Family's history: negative. Health Status Allergies: Nonallergic Reactions (Selected) Severity Not Documented Adhesive Bandage- No reactions were documented. Narcotic analgesics- Confusion., Allergies (2) ActiveReaction Adhesive BandageNone Documented narcotic analgesicsConfusion Current medications: (Selected) Inpatient Medications Ordered Bicitra: 30 mL, Oral, PREOP pharm Decadron: 10 mg, 1 mL, IV Push, AsDirected LR 1,000 mL: 20 mL/hr, Intravenous, Stop: 04/14/23 23:59:00 EDT tranexamic acid 1 g / 100 mL 0.7% NaCl PMX: 1 gram(s), 100 mL, 300 mL/hr, IV Piggyback, AsDirected tranexamic acid 1 g / 100 mL 0.7% NaCl PMX: 1 gram(s), 100 mL, 300 mL/hr, IV Piggyback, AsDirected Documented Medications Documented Multivitamin: 1 tab(s), Oral, Daily, 0 Refill(s) atorvastatin 10 mg oral tablet: 10 mg, 1 tab(s), Oral, Daily, 0 Refill(s) calcium-vitamin D 250 mg-12.5 mcg (500 intl units) oral tablet, chewable: 2 tab(s), Chewed, BIDM, 70 tab(s), 0 Refill(s) cycloSPORINE 0.05% ophthalmic emulsion: 1 drop(s), Eyes, both, BID, 30 EA, 0 Refill(s) fexofenadine 30 mg oral tablet, disintegratin mg, 1 tab(s), Oral, qDay, 12 tab(s), 0 Refill(s) meloxicam 15 mg oral tablet: 15 mg, 1 tab(s), Oral, qDay, Take with food/milk, 30 tab(s), 0 Refill(s), Medications (5) Active Scheduled: (4) citric acid-sodium citrate 334 mg-500 mg/5 mL (30 mL) Ania UD 30 mL, Oral, PREOP pharm dexamethasone 10 mg/mL (1mL) SDV 10 mg 1 mL, IV Push, AsDirected tranexamic acid PMX 1 gram(s) 100 mL, IV Piggyback, AsDirected tranexamic acid PMX 1 gram(s) 100 mL, IV Piggyback, AsDirected Continuous: (1) Lactated Ringers 1,000 mL 1,000 mL, Intravenous, 20 mL/hr PRN: (0) Problem list: Active Problems (2) Hyperlipidemia Osteoarthritis Histories Past Medical History: No active or resolved past medical history items have been selected or recorded. Family History: AAA - Abdominal aortic aneurysm Father CHF - Congestive heart failure Mother Father Coronary artery disease Mother Father Procedure history: Total hip replacement ([id number]) in 2006 at 65 Years. Comments: 03/16/2023 10:38 TURNER [facility] LEFT Colonoscopy ([id number]). ORIF - Open reduction and internal fixation of fracture ([id number]). Comments: 03/16/2023 10:39 TURNER Hale RIGHT ELBOW Tubal ligation ([id number]). Social History Social & Psychosocial Habits Alcohol 03/16/2023 Use: Never Substance Abuse 03/16/2023 Use: Never Tobacco 03/16/2023 Tobacco Use: Never (less than 100 in l Home/Environment 03/16/2023 Domestic Concerns None Lives In Single level home Marital Status of Patient if Patient Independent Adult: Unmarried Nutrition/Health 03/16/2023 Type of diet: Regular Eating Difficulties None . Physical Examination Vital Signs 04/14/2023 14:15 EDT Heart Rate Monitored 67 bpm bpm Respiratory Rate - Anes 12 br/min br/min 04/14/2023 14:10 EDT Heart Rate Monitored 63 bpm bpm Respiratory Rate - Anes 16 br/min br/min Systolic Blood Pressure Non-Invasive 121 mmHg mmHg Diastolic Blood Pressure Non-Invasive 59 mmHg mmHg 04/14/2023 14:05 EDT Heart Rate Monitored 67 bpm bpm Respiratory Rate - Anes 0 br/min br/min Systolic Blood Pressure Non-Invasive 127 mmHg mmHg Diastolic Blood Pressure Non-Invasive 61 mmHg mmHg 04/14/2023 14:02 EDT Systolic Blood Pressure Non-Invasive 135 mmHg mmHg Diastolic Blood Pressure Non-Invasive 101 mmHg mmHg 04/14/2023 14:00 EDT Respiratory Rate - Anes 23 br/min br/min 04/14/2023 13:55 EDT Respiratory Rate - Anes 0 br/min br/min 04/14/2023 11:38 EDT Temperature Temporal Artery 36.4 DegC Apical Heart Rate 69 bpm Respiratory Rate 18 br/min Systolic Blood Pressure Non-Invasive 160 mmHg HI Diastolic Blood Pressure Non-Invasive 64 mmHg Vital Signs(last 24 hrs) Last Charted Heart Rate [id number] bpm (APR 14 14:15) Resp Rate 18 br/min (APR 14 11:38) [id number] mmHg (APR 14 14:10) DBP59 mmHg (APR 14 14:10) Measurements from flowsheet : Measurements 04/14/2023 11:38 EDT Height 156 cm Admission Weight 55.4 kg [place] Body Weight 48.76 kg Admission Body Mass Index 22.76 m2 Pain assessment: Pain Assessment 04/14/2023 14:22 EDT Primary Pain Intensity Not Done: See OR Record (Not Done) Primary Pain Intensity Not Done: See OR Record (Not Done) 04/14/2023 11:38 EDT Primary Pain Intensity 0 Pain Scale Type 0-10 Pain scale . General: Alert and oriented, Mild distress. Airway: Normal temporomandibular joint mobility, Normal mouth, Normal neck range of motion. Mallampati classification: III (soft palate, base of uvula visible). Dentition Evaluation: Denies loose/chipped teeth. Respiratory: Respirations are non-labored. Cardiovascular: Normal rate. Neurologic: Alert, Oriented. Review / Management Results review: No qualifying data available , Lab results 04/14/2023 14:22 EDT SN - Implant - Implant/Explant Implant SN - Implant - Implant/Explant Implant SN - Implant - Implant/Explant Implant SN - Implant - Implant/Explant Implant 04/14/2023 14:22 EDT Primary Pain Intensity Not Done: See OR Record (Not Done) Primary Pain Intensity Not Done: See OR Record (Not Done) epinephrine Not Done: See OR Record (Not Done) epinephrine Not Done: See OR Record (Not Done) ketorolac Not Done: See OR Record (Not Done) ketorolac Not Done: See OR Record (Not Done) morphine Not Done: See OR Record (Not Done) morphine Not Done: See OR Record (Not Done) povidone iodine topical Not Done: See OR Record (Not Done) ROPivacaine Not Done: See OR Record (Not Done) ROPivacaine Not Done: See OR Record (Not Done) 04/14/2023 14:20 EDT SN - Proc - Anesthesia Type Spinal, MAC, Local 04/14/2023 14:20 EDT SN - Irl - Irrigant Normal Saline SN - Irl - Irrigant Sterile Water SN - Irl - Irrigant Normal Saline SN - IrI - Volume In 450 mL SN - IrI - Volume In 500 mL SN - Irl - Additive IRRIGATION CHG 0.05% IRRISEPT [id number] SN - Irl - Additive BETADINE SN - IrI - Volume Out 450 mL SN - IrI - Volume Out 500 mL 04/14/2023 14:19 EDT SN - SP - Prep Agents Chloraprep SN - SP - HR - Method Clipped 04/14/2023 14:19 EDT SN - PP - Body Position Supine Standard Intra-op 04/14/2023 14:19 EDT SN - PTCare - Thermals Forced Air Warming Device Upper Body 04/14/2023 14:18 EDT SN - VT - Route of Administration Local SN - VT - Route of Administration Local 04/14/2023 14:18 EDT SN - GCD - Post-operative Diagnosis UNILATERAL PRIMARY OSTEOARTHRITIS, RIGHT HIP. STIFFNESS OF RIGHT HIP 04/14/2023 14:18 EDT SN - Cul - Culture Type No Specimen per Surgeon 04/14/2023 14:17 EDT SN - CAt - Case Attendee SN - CAt - Case Attendee SN - CAt - Role Performed X-Ray Tech 04/14/2023 14:16 EDT SN - Proc - Actual Procedure DIRECT ANTERIOR RIGHT TOTAL HIP ARTHROPLASTY 04/14/2023 14:16 EDT SN - CTm - Surgery Start 04/14/2023 14:12 04/14/2023 14:15 EDT Heart Rate Monitored 67 bpm bpm Respiratory Rate - Anes 12 br/min br/min Oxygen Saturation 98 % % 04/14/2023 14:10 EDT Heart Rate Monitored 63 bpm bpm Respiratory Rate - Anes 16 br/min br/min Systolic Blood Pressure Non-Invasive 121 mmHg mmHg Diastolic Blood Pressure Non-Invasive 59 mmHg mmHg Oxygen Saturation 99 % % 04/14/2023 14:05 EDT Heart Rate Monitored 67 bpm bpm Respiratory Rate - Anes 0 br/min br/min Systolic Blood Pressure Non-Invasive 127 mmHg mmHg Diastolic Blood Pressure Non-Invasive 61 mmHg mmHg Oxygen Saturation 96 % % cefazolin 2 gram(s) gram(s) Sodium Chloride 0.9% 100 mL mL 04/14/2023 14:02 EDT Systolic Blood Pressure Non-Invasive 135 mmHg mmHg Diastolic Blood Pressure Non-Invasive 101 mmHg mmHg 04/14/2023 14:00 EDT Respiratory Rate - Anes 23 br/min br/min Oxygen Saturation 98 % % 04/14/2023 13:57 EDT SN - CAt - Case Attendee SN - CAt - Case Attendee 04/14/2023 13:55 EDT Respiratory Rate - Anes 0 br/min br/min 04/14/2023 13:29 EDT SN - GCD - ASA Class 3 SN - GCD - Case Level Level 5 04/14/2023 13:28 EDT SN - XI - X-Ray Type C-Arm 04/14/2023 13:28 EDT SN - Assess - LOC Alert, Awake SN - Assess - Orientation Oriented X 3 SN - Assess - Post-op Skin Integrity Intact/Dry 04/14/2023 13:22 EDT SN - CAt - Case Attendee SN - CAt - Case Attendee SN - CAt - Case Attendee SN - CAt - Case Attendee SN - CAt - Case Attendee SN - CAt - Case Attendee SN - CAt - Case Attendee SN - CAt - Case Attendee SN - CAt - Case Attendee SN - CAt - Case Attendee SN - CAt - Case Attendee SN - CAt - Case Attendee SN - CAt - Role Performed Primary Surgeon SN - CAt - Role Performed KENO ATTENDANT SN - CAt - Role Performed Formstone Fitter 1 SN - CAt - Role Performed Scrub 1 SN - CAt - Role Performed Recreation Center Director 1 SN - CAt - Role Performed Fisher Crab SN - CAt - Role Performed Physician Corsetier 04/14/2023 12:03 EDT SN - Preop - CTm Pt Ready for OR/Proced 04/14/2023 12:03 04/14/2023 11:51 EDT celecoxib 400 mg mg 04/14/2023 11:50 EDT famotidine 20 mg mg Lactated Ringers Injection 1,000 mL mL 04/14/2023 11:46 EDT Hand Left 20 gauge Peripheral IV Activity: Insert new site Peripheral IV Dressing Condition: Clean, Dry, Intact Peripheral IV Dressing Activity: Transparent dressing Peripheral IV Line Status/Patency: Continuous infusion Peripheral IV Site Condition: No complications Peripheral IV Site Care: Direct pressure applied Peripheral IV Number of Attempts: 1 04/14/2023 11:44 EDT ABO/Rh Interp O POS Antibody Screen Gel Negative ABSC 04/14/2023 11:38 EDT Height 156 cm Admission Weight 55.4 kg [place] Body Weight 48.76 kg Admission Body Mass Index 22.76 m2 Temperature Temporal Artery 36.4 DegC Apical Heart Rate 69 bpm Respiratory Rate 18 br/min Systolic Blood Pressure Non-Invasive 160 mmHg HI Diastolic Blood Pressure Non-Invasive 64 mmHg Primary Pain Intensity 0 Pain Scale Type 0-10 Pain scale Monitor Alarms On and Limits Checked Heart Rhythm Regular Dorsalis Pedis Pulse, Left 2+ Normal Dorsalis Pedis Pulse, Right 2+ Normal Respirations Unlabored All Lobes Breath Sounds Clear Cough None Oxygen Therapy Room air Oxygen Saturation 98 % Abdomen Description Non-distended, Soft Bowel Sounds All Quadrants Present Skin Temperature Warm Skin Description [place] Skin Integrity Intact Mucous Membrane Color [place] Skin Moisture General Dry Neurological Symptoms Numbness Characteristics of Speech Clear Level of Consciousness Alert Strength All Extremities Strong Affect/Behavior Appropriate, Calm, Cooperative Orientation Oriented x 4 Patient Identified Identification band, Verbal Arrival Mode Ambulatory Orientation Assessment Oriented x 4 Assistive Device None Standard Safety ID band on, Allergy Band on, Call device within reach, Bed in low position, Wheels locked, Non-Slip footwear 04/14/2023 11:35 EDT Designated Person #1 We May Share [place]Y [phone] Designated Person #1 Relationship Daughter Privacy Restrictions Requested None Status N/A Sensory Deficits None Sleep Apnea Snore Yes Sleep Apnea Tired Yes Sleep Apnea Obstruction No Sleep Apnea Pressure No Sleep Apnea BMI No Sleep Apnea Age Yes Sleep Apnea Neck No Sleep Apnea Gender No Sleep Apnea Score 3 Diagnosed With Sleep Apnea No Advanced Directives Yes Advance Directive Type [place] Durable Power of Refinery Operator [facility] [place] Declaration (Living Will) Advance Directive Location Patient instructed to bring in copy Infectious Disease Symptoms Patient states no symptoms Infectious Disease Recent Exposure No Alcohol and Drug Use No Employee of Institutional Living No Health Care Employee No History of Exposure to TB No History of Positive Chest X-Ray for TB No History of Positive TB Skin Test No Homeless No Known Immunosuppression No Recent Immigrant No Resident of Institutional Living No Bloody Sputum No Fatigue No Fever No Loss of Appetite No Night Sweats No Persistent Cough > 3 Weeks No Weight Loss No Pre-Op Patient Education NPO after midnight, No smoking after midnight, No makeup, No jewelry, Aware of surgery location, Pre-op education done, 1 bottle CHG wash with instructions given, No ordered medications SN - Preprocedure Comments Spoke with patient, Verbalizes/Nonverbally indicates understanding, Other: scop patch Barriers to Learning None evident Teaching Method Explanation, Printed materials Preferred Spoken Language [place] Preferred Written Language [place]er Teaching Evaluation Verbalizes/Nonverbally indicates understanding Total Joint Book Given Yes Safety Brochure Information Reviewed Unable to complete Saadia Slater Video Viewed No Information Given by Patient Patient's Current Physicians Patient's Current Physicians Discharge To, Anticipated Home with family care Prev Test Positive/Diagnosis w/COVID-19 No Current Quarantine/Isolated any Illness No Any Contact with Sick Animals/Birds No Traveled Anywhere in Last 30 Days No Lost Weight Unintentionally Recently No Eat Poorly Due to Decreased Appetite No Total MST Score 0 N/A Personal Devices, Patient Valuables Glasses, Hearing aid, left, Hearing aid, right Anesthesia/Transfusions Prior anesthesia, Prior anesthesia reaction Type of Anesthesia Reaction N/V Admission Note-Nursing Same Day Patient History 04/14/2023 11:25 EDT Urinary Elimination Voiding, no difficulties IV Present Present Allergies Yes Anesthesia Extension Set Applied Yes Hand Drawer In On Yes Consent Form Signed Yes Patient Dressed In Hospital gown CHG Preoperative Wash/Wipe Night before procedure, Day of procedure Preop Nasal Swab Povidone-Iodine History & Physical Update On Chart Yes History & Physical On Chart Yes Obstructive Sleep Apnea Assess Completed No Belongings At Bedside Glasses, Hearing aid, left, Hearing aid, right, Shirt, Shoes, Shorts, Undergarments Personal Home Medications Received No home medications were brought in Allergy Band on and Verified Yes Patient ID Band on and Verified Yes Implants Verified Yes Pacemaker/AICD Verified Yes Site Verified by Patient/Family Yes Anesthesia Consent Signed Yes Blood Consent Signed Yes Last Fluid Intake 04/13/2023 19:00 Last Food Intake 04/13/2023 19:00 04/14/2023 11:24 EDT SN - Preop - CTm Pt in SDS Room 04/14/2023 11:24 . Assessment and Plan [place] [employer] Anesthesiologists (ASA) physical status classification: Class III. Anesthetic Preoperative Plan Anesthetic technique: Spinal. Risks discussed: discussed narcotics, sedation and n/v. pt would like to get the least possible, but is very nervous. Informed consent: signed by patient. Digitally Signed by ESTEPHANIE ORO on 04/14/2023 02:29 PM [facility] 12-31-2022 Miscellaneous Notes Faxed Patient requesting mammogram order be faxed to [facility]. Order to RR to sign. Patient aware this will be sent to [facility] today. No need to call her back. Lisbet Schafer RN documented in this encounter [facility] 02-11-2022 History of Presen t illness Narrative Michaela is a 81 year old who presents for an annual gynecologic exam without complaints. Postmenopausal: yes HRT use: No. 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 History Comments: Sexual Activity: Not Currently; No partner data on record Contraception: No contraception data on record PAST MEDICAL HISTORY Diagnosis Date Arthritis Hyperlipidemia PAST SURGICAL HISTORY Procedure Laterality Date ARTHRP ACETBLR/PROX FEM PROSTC AGRFT/ALGRFT 2006 left CATARACT EXTRACTION HX Bilateral 08/2019 PAST SURGICAL HISTORY OF 1977 PAST SURGICAL HISTORY OF ganglion cyst removal, right hand PAST SURGICAL HISTORY OF carpel tunnel, right hand PAST SURGICAL HISTORY OF 2003 liver biopsy PAST SURGICAL HISTORY OF 2006 cyst removal, index finger, right hand PAST SURGICAL HISTORY OF 2007 repaired index finger, right hand/bonegraft PAST SURGICAL HISTORY OF 2008 removal of screw, right hand PAST SURGICAL HISTORY OF 2010 olecranone fracture, right elbow PAST SURGICAL HISTORY OF 2010 colonoscopy PAST SURGICAL HISTORY OF 2012 removal of most of hardware, right elbow PAST SURGICAL HISTORY OF 2012,2018 colonoscopy TUBAL LIGATION HX 1981 FAMILY HISTORY Problem Relation Age of Onset Heart Mother Arthritis Mother Heart Father Stroke Father Aneurysm Father Heart Maternal Grandmother Heart Paternal Grandmother Cancer Maternal Aunt Heart Maternal Aunt SOCIAL HISTORY Social History Tobacco Use Smoking status: Never Smoker Smokeless tobacco: Never Used Tobacco comment: social smoked in the past Vaping Use Vaping Use: Never used Substance Use Topics Alcohol use: Not Currently Drug use: No REVIEW OF SYSTEMS Abdomen: No abdominal pain, nausea, vomiting, diarrhea, or constipation. No bloating, early satiety, indigestion, or increased flatulence. Bladder: No dysuria, gross hematuria, urinary frequency, urinary urgency, or incontinence Breast: No breast lumps, nipple d/c, overlying skin changes, redness or skin retraction Allergies and current medication updated:Yes EXAM: BP 144/68 Ht 5' 2 (1.58m) Wt 126 lb (57.2kg) BMI 23.04 kg/(m^2). GENERAL: pleasant, female in no apparent distress HEENT: Normocephalic, atraumatic, mucus membranes moist and no lesions NECK: Supple, full range of motion, no adenopathy and thyroid normal DERMATOLOGY: Normal, without lesions, non-icteric and non-hirsute BREAST: soft, non-tender, symmetric, no dominant mass, normal nipple-areolar complex, no lymphadenopathy and no nipple discharge CHEST: Normal inspiratory effort ABDOMEN: soft, non-tender and no masses PELVIC: external genitalia normal, normal Bartholin's glands, urethra, [place]'s glands, no vulvar lesions, no cervical lesions, good vaginal support, physiologic discharge present, normal appearing perineal body and perianal region, atrophic flattened epithelium BIMANUAL: uterus normal size, shape and consistency, no adnexal masses and non-tender RECTOVAGINAL: deferred. NEURO: alert and oriented x3,exam grossly non-focal EXTREMITIES: normal ASSESSMENT/PLAN: 1) Health maintenance: Pap/HPV screening no longer needed Mammogram ordered 2) Follow up one year or sooner as needed Gunner Stevens MD documented in this encounter [facility] Chief complaint+Reason for visit Narrative Reason for Visit Macrocytosis without anemia Vertigo [facility] Work Phone: Evaluation + Plan note Future Appointments [facility] Evaluation + Plan note Future Appointments Appointment Date:04/17/2023 11:00:00 AM Scheduled Provider: Location:[facility] Appointment Type:PT Outpatient Evaluation [facility] Evaluation noteNo assessment information available [facility] Work Phone: Evaluation note* Diagnosis Onset Date Resolution Status Macrocytosis without anemia acute Vertigo chronic [facility] Work Phone: Evaluation note* Diagnosis Encounter for gynecological examination (general) (routine) without abnormal findings- Primary [facility] Narrative No data available for this section [facility] Hospital Discharge instructions No data available for this section [facility] Progress note No data available for this section [facility] Reason for referral (narrative)[facility] Work [facility]: Summary Purpose Family History No Family History Records Found Relationship Condition Age at Onset Recorded Date/T boris father Myocardial infarction Unknown Congestive heart failure Unknown Aneurysm of gastric artery Unknown mother Congestive heart failure Unknown grandmother Congestive heart failure Unknown grandfather Cerebral hemorrhage Unknown Relationship Condition Age at Onset Recorded Date/T boris Not Specified Cerebral hemorrhage Unknown father Myocardial infarction Unknown Congestive heart failure Unknown Aneurysm of gastric artery Unknown Cardiac disease Unknown mother Congestive heart failure Unknown Arthritis Unknown Malignant neoplasm of bone Unknown Diabetes mellitus Unknown grandmother Congestive heart failure Unknown Advance Directives No Advanced Directives Records Found Advance Directive Response Recorded Date/ Time Living Will Yes October 30, 2021 8:37am Power of Refinery Operator Yes October 30 8:37am Advance Directive Response Recorded Date/ Time Living Will Yes October 30, 2021 7:37am Power of Refinery Operator Yes October 30 7:37am Chief Complaint and Reason for Visit Chief Complaint DIZZINESS Chief Complaint DIZZINESS SCREENING Chief Complaint DISORDERS OF BONE DE NSITY Chief Complaint DISORDERS OF BONE DE NSITY SCREENING Additional Source Comments INFORMATION SOURCE (unrecogn ized section and content) DATE CREATED AUTHOR 10/02/[address] [facility] DATE CREATED AUTHOR AUTHOR'S ORGANIZ ATION 02/20/2023 [facility] DATE CREATED AUTHOR AUTHOR'S ORGANIZ ATION 05/10/2023 [facility] ([place]) DATE CREATED AUTHOR AUTHOR'S ORGANIZ ATION 12/30/2024 [facility] DATE CREATED AUTHOR AUTHOR'S ORGANIZ ATION 01/21/2025 [facility] Goals (unrecognized section and content) Goals may be documented in a n alternate sectionGoals may be documented in an alternate sectionGoals may be documented in an alternate sectionGoals may be documented in an alternate sectionGoals may be documented in an alternate sectionGoals may be documented in an alternate section No data available for this section No data available for this section No data available for this sectionGoals may be documented in an alternate section Source Comments (unrecognize d section and content) In the event this informatio n is protected by the Federal Confidentiality of Alcohol and Drug Abuse Patient Records regulations: The Federal rules restrict any use of the information to criminally investigate or prosecute any alcohol or drug abuse patient.[facility] the event this information is protected by the Federal Confidentiality of Alcohol and Drug Abuse Patient Records regulations: The Federal rules restrict any use of the information to criminally investigate or prosecute any alcohol or drug abuse patient.[facility] Care Teams (unrecognized sec tion and content) [employer] Installer Relationship Specialty Start Date End Date Lala Damon MD PCP - General Family Practice 06/02/14 [employer] M[employer] Installer Relationship Specialty Start Date End Date Lala Damon MD PCP - General Family Medicine 06/02/14 Team Status: Active Member Role Status Dates Dr. Lala Damon MD Family Provider Active Beronica Villasenor DO Primary Care Provider Active Team Status: Inactive Member Role Status Dates Beronica Villasenor DO Primary Care Provi carley, Attending Provider, Referring Provider Active Team Status: Inactive Member Role Status Dates Beronica Villasenor DO Primary Care Provider Active Dr. Gunner Stevens MD Attending Provider, Referring Provider Active Team Status: Active Member Role Status Dates Dr. Lala Damon MD Family Provider Active Jerel Benson MD Primary Care Provider Active Team Status: Inactive Member Role Status Dates Jerel Benson MD Primary Care Provider Active St art: December 23, 2024 End: December 23, 2024 Jerel Benson MD Attending Provider Active Start : December 23, 2024 End: December 23, 2024 Jerel Benson MD Referring Provider Active Start : December 23, 2024 End: December 23, 2024 Reason for Visit (unrecogniz ed section and content) Reason Comments Orders FOR RECORDS PERTAINING TO PATIENTS WHO ARE OR HAVE BEEN ENROLLED IN A CHEMICAL DEPENDENCY/SUBSTANCEABUSE PROGRAM, SOME INFORMATION MAY BE OMITTED. This clinical summary was aggregated from multiple sources. Caution should be exercised in using it in the provision of clinical care. This summary normalizes information from multiple sources, and as a consequence, information in this document may materially change the coding, format and clinical context of patient data. In addition, data may be omitted in some cases. CLINICAL DECISIONS SHOULD BE BASED ON THE PRIMARY CLINICAL RECORDS. [facility] [employer] [facility]. provides no warranty or guarantee of the accuracy or completeness of information in this document.
== END | disposition home or self-care (01) ==
LOC: OPBI 10:06
PROVIDERS: PCP Family Medicine; Referring Provider Family Medicine; Visit Provider Family Medicine
DX: Z12.31 Encounter for screening mammogram for malignant neoplasm of breast (principal)
CPT/HCPCS: 77063; 77067

== ENCOUNTER → 2025-07-14 | Outpatient (CLI) | payer MEDICARE, SELFPAY ==
--- OUTSIDE RECORDS SUMMARY | 2025-07-14 10:58 | XMS RPT_ITS | CCD ---
Author Organization [facility] Care Team Providers Care Dining Room Server Name Role Phone INNANATALEE Attending Unavailable INNA, NATALEE Slime Primary Care Unavailable INNA, NATALEE E Admitting Unavailable INNA NATALEE Slime Attending Unavailable INNA, NATALEE E Primary Care Unavailable INNA, NATALEE E Admitting Unavailable Dr. Dieter Damon Primary Care Provider [phone] Dr. Dieter Damon Referring Provider [phone] Tereso Bob Attending Provider Dieter Damon MD Primary Care Provider [phone] Dieter Damon MD Primary Care Provider DIETER DAMON Primary Care Unavailable LINDA NUNEZ Attending Unavailable BERONICA VILLASENOR DO Primary Care Physician [phone] BERONICA VILLASENOR DO Primary Care Unavailable DR AMBROSE SANTOS MD Attending Unavailab charles RAO PA-C, SOLA Velez Attending Unavailable BERONICA VILLASENOR DO Primary Care Unavailable DR AMBROSE SANTOS MD Admitting Unavailab charles CXO SHOULDER JOINER-TEST ENGINEER, FÁTIMA Mcgraw Consulting Unavaila ble BERONICA VILLASENOR DO Primary Care Unavailable DR AMBROSE SANTOS MD Attending Unavailab Jerel Sharma MD Primary Care Provider Jerel Benson MD Attending Provider Jerel Benson MD Referring Provider MICHELLE ARSHAD MD Primary Care Unavailable PAVITHRA NAVARRO~[phone], PAVITHRA MARTINEZ Attending Unavailable PAVITHRA NAVARRO~[phone], PAVITHRA MARTINEZ Admitting Unavailable Jerel Benson Referring Unavailable Jerel Benson Primary Care Unavailable Jerel Benson Attending Unavailable Jerel Benson Referring Unavailable Jerel Benson Primary Care Unavailable Jerel Benson Attending Unavailable Allergies Allergy Classification Reported Allergen(s) Allergy Type Date of Onset Reaction(s) Facility (4 sources) Opioid Agonists Allergy to substance 8 Nausea [facility] Work Phone: (3 sources) Surgical adhesive tape Propensity to adverse reactions 8 tears skin [facility] Work Phone: (3 sources) Adhesive Tape; Translations: [ADHESIVE TAPE (ROSINS)] Allergy to substance 6 Other: See Comments [facility] Work Phone: (3 sources) Morphinan opioid; Translations: [OPIOIDS - MORPHINE ANALOGUES] Propensity to adverse reactions to drug 4 [facility] (6 sources) Adhesive Tape; Translations: [adhesive tape] Propensity to adverse reactions 2 Other [facility] Comment on above: TEARS SKIN (4 sources) Opioids - Morphine Analogues Propensity to adverse reactions 2 Nausea [facility] (3 sources) Adhesive bandage Propensity to adverse reactions to substance [facility] (3 sources) Opiate agonist; Translations: [narcotic analgesics] Propensity to adverse reactions to drug Confusion [facility] (1 source) Opioids - Morphine Analogues Drug allergy (disorder) 2 [facility] Repository Medications Current Medications Medication Drug Class(es) Dates Sig (Normalized) Sig (Original) acetaminophen 1000 mg oral tablet (10 sources) Start: 04-16-2023 take 1 tablet by mouth once daily Tylenol Dose : 1,000 mg = 2 tab(s), Oral, TID, not to exceed 3000 mg/day, 0 Refill(s) Start Date: 04/16/23 Status: Ordered Start: 11-30-2020 take 1 capsule by [facility] every six hours as needed Acetaminophen 500 [...] prophylaxis., # 56 tab(s), 0 Refill(s), Pharmacy: [facility]/pharmacy #[id number], 156, cm, 04/14/23 16:39:00 EDT, Height, kg, 04/14/23 16:39:00 EDT, Dosing Weight Start Date: 04/16/23 Stop Date: 05/14/23 Status: Ordered atorvastatin 10 mg oral tablet (13 sources) HMG-CoA Reductase Inhibitor Start: 11-13-2017 take 1 tablet by mouth at bedtime Atorvastatin 10 MG tablet Active 10 mg PO AT BEDTIME November 13, 2017 12:00am Comment on above: Take 10 mg by mouth once daily. calcium carbonate 1500 mg / cholecalciferol 800 unt chewable tablet (8 sources) Vitamin D Start: 11-13-2017 take 1 [...] Status: Ordered cycloSPORINE 0.5 mg/ml ophthalmic suspension (10 sources) Calcineurin Inhibitor Immunosuppressant Start: 11-13-2017 take [...] qDay, # 28 tab(s), 0 Refill(s), Pharmacy: [facility]/pharmacy #[id number], 156, cm, 04/14/23 16:39:00 EDT, Height, kg, 04/14/23 16:39:00 EDT, Dosing Weight Start Date: 04/16/23 Status: Ordered fexofenadine hydrochloride 30 mg disintegrating oral tablet (11 sources) Histamine-1 Receptor Antagonist Start: 03-16-20 fexofenadine [...] guaiFENesin 1200 mg extended release oral tablet (6 sources) Start: 2 take 1 tablet by mouth twice daily Guaifenesin 1,200 mg tablet extended release 12hr Active 1200 mg PO TWICE A DAY January 23, 2022 12:00am hypromellose 0.003 mg/mg ophthalmic gel (14 sources) Start: 1 Artificial Tears(Hypromellose) (Systane Gel) 0.3 % gel Active 1 NMA OPHTHALMIC Q4H as needed January 23, 2022 12:00am meloxicam 15 mg oral tablet (13 sources) Nonsteroidal Anti-inflammatory Drug Start: 9 take 1 tablet by mouth once daily Meloxicam 15 mg tablet Active 15 mg PO DAILY November 30, 2020 12:00am Multivitamin preparation (3 sources) Start: 3 take 1 tablet by mouth once daily Multivitamin Dose = 1 tab(s), Oral, Daily, 0 Refill(s) Start Date: 03/16/23 Status: Ordered Hrtxwkxafwau-Cl-Yipr- Minerals (Multiple Vitamins For Women) 1 EACH tablet (8 sources) Start: 8 take 1 tablet by mouth once daily Zdayzinxkblq-Cn-Fkqz -Minerals (Multiple Vitamins For Women) 1 EACH tablet Active 1 EACH PO DAILY November 13, 2017 9:28am Start: 11-13-2017 take 1 tablet by briana th once daily Qowhclrynfcg-Tm-Yxzs-Minerals (Multiple Vitamins For Women) 1 EACH tablet Active 1 NMA PO DAILY November 13, 2017 12:00am Start: 11-13-2017 take 1 tablet by briana th once daily Tooqycmipxtv-Uy-Qcfv-Minerals (Multiple Vitamins For Women) 1 EACH tablet Active 1 EACH PO DAILY November 12, 2017 11:00pm Start: 11-13-2017 take 1 tablet by briana th once daily Kdakemebffjw-Og-Ayjg-Minerals (Multiple Vitamins For Women) 1 EACH tablet Active 1 EACH PO DAILY November 13, 2017 12:00am Completed/Discontinued Medications Medication Drug Class(es) Dates Sig (Normalized) Sig (Original) Biotin (2 sources) take 33925 mg by mouth once daily BIOTIN ORAL Take by mouth. 10,000mg QD 0 Active Comment on above: Take by mouth. 10,00 0mg QD Calcium Carbonate / vitamin D3 (2 sources) CALCIUM CARBONATE/VITAMIN D3 (CALCIUM + D ORAL) Take by mouth. 0 Active Comment on above: Take by mouth. diphenhydrAMINE hydrochloride 25 mg oral capsule (8 sources) Histamine-1 Receptor Antagonist Start: 11-30-2020 End: [...] 2020 9:58am Fish Oil-Dha-Epa 1 EACH capsule (2 sources) Start: 11-13-2017 End: 11-30-2020 take 1 capsule by mouth once daily Fish Oil-Dha-Epa 1 EACH capsule Discontinued 1 NMA PO DAILY November 13, 2017 12:00am November 30, 2020 9:58am Fresh Coat (8 sources) Start: 11-13-2017 End: 11-30-2020 Fresh Coat [...] mouth. naproxen sodium 220 mg oral tablet (10 sources) Nonsteroidal Anti-inflammatory Drug Start: 11-14-19 18 [...] Episodic/Chronic Conditions associated with dizziness or vertigo (7 sources) Vertigo; Translations: [Dizziness and giddiness] Episodic [...] with vomiting, unspecified] Onset: 04-15-2023 Episodic Osteoarthritis (11 sources) Arthritis; Translations: [Unspecified osteoarthritis, unspecified site] Onset: 06-05-2015 06-05-2015 Chronic Other aftercare (1 source) Follow-up orthopedic assessment; Translations: [Aftercare following joint replacement surgery] Chronic Other and unspecified benign neoplasm (8 sources) History of polyp of colon; Translations: [Personal history of colonic polyps] 11-19-2017 Episodic Other connective tissue disease (1 source) Hip joint prosthesis present; Translations: [Presence of right artificial hip joint] Chronic Other connective tissue disease (1 source) Muscle weakness; Translations: [Muscle weakness (generalized)] Episodic Other hematologic conditions (6 sources) 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; Translations: [Other [...] mammogram for malignant neoplasm of breast] Onset: 01-26-2025 Episodic Peripheral and visceral atherosclerosis (1 source) Peripheral vascular disease, unspecified; Translations: [Peripheral vascular disease, unspecified] Onset: 12-29-2024 Chronic Spondylosis; intervertebral disc disorders; other back problems (8 sources) Lumbar spondylosis; Translations: [Other spondylosis, lumbar region] 12-10-2020 Chronic Spondylosis; intervertebral disc disorders; other back problems (16 sources) Lumbar radiculopathy; Translations: [Radiculopathy, lumbar region] 11-30-2020 Episodic Past or Other Problems Problem Classification Problem Date Documented Da te Episodic/Chronic Other bone disease and musculoskeletal deformities (2 sources) Osteopenia; Translations: [Other specified disorders of bone density and structure, unspecified site] Onset: 06-05-2015 06-05-2015 Episodic Results Test Name Value Interpretation Reference Range Facility Breast imaging reportOrdered By: Caryl Peoples on 01-23-2025 Study report [facility] Imaging Services [address] [place] [address] SCRN MAMM (CAD)W/PABLO BILAT MR#: [id number] Acct: [id number] Name: MICHAELA LUNA Rep #: [id number] : 1940 F 84 From: Claudio Peoples DO PCP: Dr. Jerel Benson MD Status: REG CL I Study:SCRN MAMM (CAD)W/PABLO BILAT Date of Exa m: 01/23/25 Exam# [id number] Ordering Dr: Lesia Benson MD EXAM: SCRN MAMM (CAD)W/PABLO BILAT DATE: 01/23/2025 CLINICAL HISTORY: F, Age 84 y/o , ANNUAL Yearly screening mammogram. BREAST CANCER RISK ASSESSMENT: Has not been calculated. TECHNIQUE: SCRN MAMM (CAD)W/PABLO BILAT COMPARISON: Prior exam(s) dated 01/22/2024 and 01/20/2023. FINDINGS: TISSUE DENSITY: The breast tissue is heterogeneously dense, which may obscure small masses. Bilateral Breast Mammographic Findings: Benign round microcalcifications are seen in the left breast. Stable nodular masslike densities are seen in both breasts. No suspicious masses, suspicious clustered microcalcifications, architectural distortion or secondary sign of malignancy is identified in either breast. BI/SCRN MAMM (CAD)W/PABLO BILAT IMPRESSION: Stable benign mammogram OVERALL FINAL ASSESSMENT BI-RADS 2: BENIGN RECOMMEND ANNUAL MAMMOGRAPHIC SCREENING. RECOMMENDATION: Routine annual follow-up in 1 Year A letter with findings and recommendations will be mailed to the patient. Reading Location: [id number] CC: Dr. Jerel Benson MD ~ Tax Map Technician: Signed [facility] SCRN MAMM (CAD)W/PABLO BILATo n 01-23-2025 SCRN MAMM (CAD)W/PABLO BILAT [facility] Imaging Services [address] [place] [address] SCRN MAMM (CAD)W/PABLO BILAT MR#: [id number] Acct: [id number] Name: MICHAELA LUNA Rep #: [id number] : 1940 F 84 From: Caryl Chavez PCP: Dr. Jerel Benson MD Status: [facility] Study: SCRN MAMM (CAD)W/PABLO BILAT Date of Exam: 01/02 10/25 Exam# [id number] Ordering Dr: Jerel Benson MD EXAM: SCRN MAMM (CAD)W/PABLO BILAT DATE: 01/23/2025 CLINICAL HISTORY: F, Age 84 y/o , ANNUAL Yearly screening mammogram. BREAST CANCER RISK ASSESSMENT: Has not been calculated. TECHNIQUE: SCRN MAMM (CAD)W/PABLO BILAT COMPARISON: Prior exam(s) dated 01/22/2024 and 01/20/2023. FINDINGS: TISSUE DENSITY: The breast tissue is heterogeneously dense, which may obscure small masses. Bilateral Breast Mammographic Findings: Benign round microcalcifications are seen in the left breast. Stable nodular masslike densities are seen in both breasts. No suspicious masses, suspicious clustered microcalcifications, architectural distortion or secondary sign of malignancy is identified in either breast. BI/SCRN MAMM (CAD)W/PABLO BILAT IMPRESSION: Stable benign mammogram OVERALL FINAL ASSESSMENT BI-RADS 2: BENIGN RECOMMEND ANNUAL MAMMOGRAPHIC SCREENING. RECOMMENDATION: Routine annual follow-up in 1 Year A letter with findings and recommendations will be mailed to the patient. Reading Location: [id number] CC: Dr. Jerel Benson MD Tax Map Technician: Signed [facility] DARIANA -reflex to Titer [employer] Patte rnon 12-29-2024 Antinuclear Antibodies, IFA Negative [facility] Comment on above: Order Comment: Perfo rmed at: [facility] [email or web address] [id number] [employer] Recruiter: Eduardo Maynard PhD, Phone: [phone] Result Comment: Nega tive <1:80 Borderline 1:80 Positive >1:80 ICAP nomenclature: AC-0 For more information about Hep-2 cell patterns use ANApatterns.org, the official website for the International Consensus on Antinuclear Antibody (DARIANA) Patterns (ICAP). Performed By: #### A NA #### [facility] RESULTS Hepatitis C Antibody w/ Refl ex to PCRon 12-29-2024 HCV Ab Non-Reactive Normal Non Reactive [facility] Comment on above: Order Comment: Perfo rmed at: [employer] [place] [id number] [employer] Recruiter: Eduardo Maynard PhD, Phone: [phone] Performed By: #### H EPCABR #### [facility] RESULTS Interpretation Comment [facility] Comment on above: Order Comment: Perfo rmed at: [facility] [email or web address] [id number] [employer] Recruiter: Eduardo Maynard PhD, Phone: [phone] Result Comment: Not infected with HCV unless early or acute infection is suspected (which may be delayed in an immunocompromised individual), or other evidence exists to indicate HCV infection. Performed By: #### H EPCABR #### [facility] RESULTS Sjogrens Abs SS-A/SS-Bon Sjogren's Anti-SS-A <0.2 Normal 0.0-0.9 [facility] Comment on above: Order Comment: Perfo rmed at: [address] [id number] [employer] Rec[employer]iter: Eduardo Maynard PhD, Phone: [phone] Performed By: #### S JOANGELINS #### [facility] RESULTS Sjogren's Anti-SS-B <0.2 Normal 0.0-0.9 [facility] Comment on above: Order Comment: Perfo rmed at: [facility] [address] [id number] [employer] Recruiter: Eduardo Maynard PhD, Phone: [phone] Performed By: #### S JONANCY #### [facility] RESULTS Rheumatoid Factor (Quant)on 12-27-2024 Rheumatoid Factor <12 Normal <=13 [facility] Comment on above: Performed By: #### R F #### [facility] [place] [address] Absolute lymphocyte countOrd ered By: Jerel Benson on 12-23-2024 Lymphocytes Auto (Unsp spec) [#/Vol] 1.03 10*3/uL 0.83-4.51 [facility] Absolute neutrophil countOrd ered By: Jerel Benson on 12-23-2024 Neutrophils (Bld) [#/Vol] 2.4 10*3/uL 2.0-7.7 [facility] Anion gap in Serum or Plasma Ordered By: Jerel Benson on 12-23-2024 Anion gap [Moles/Vol] 10 mmol/L 5-15 [facility] Automated lymphocyte count a s percentage of total leukocytesOrdered By: Jerel Benson on 12-23-2024 Lymphocytes/100 WBC Auto (Unsp spec) 25.6 % 19-41 [facility] BUN/creatinine ratioOrdered By: Jerel Benson on 12-23-2024 Urea nitrogen/Creatinine [Mass ratio] 34.0 mg/mg High 10-20 [facility] Basophil percentageOrdered B y: Jerel Benson on 12-23-2024 Basophils/100 WBC (Bld) 1.5 % High 0-1 [facility] Bilirubin, totalOrdered By: Jerel Benson on 12-23-2024 Bilirubin [Mass/Vol] 0.33 mg/dL 0.00-1.30 [facility] CBC W/Diff, Automatedon 12-02 Absolute Lymph 1.03 X10 3/uL Normal 0.83-4.51 [facility] Comment on above: Order Comment: Order Date: 12/20/24 Order Info: 0184-1 - CBCD Performed By: #### L 501.9520, L500.4050, L100.0100, L501.9985 #### [facility] [address] [place], [address] Absolute Neut 2.4 X10 3/uL Normal 2.0-7.7 [facility] Comment on above: Order Comment: Order Date: 12/20/24 Order Info: 0184-1 - CBCD Performed By: #### L 501.9520, L500.4050, L100.0100, L501.9985 #### [facility] [address] [place], [address] Basophils/100 WBC (Bld) 1.5 % High 0-1 [facility] Comment on above: Order Comment: Order Date: 12/20/24 Order Info: 0184-1 - CBCD Performed By: #### L 501.9520, L500.4050, L100.0100, [id number] #### [facility] [address] [place], [address] Eosinophils/100 WBC (Bld) 4.0 % Normal 0-5 [facility] Comment on above: Order Comment: Order Date: 12/20/24 Order Info: 0184-1 - CBCD Performed By: #### L 501.9520, L500.4050, L100.0100, L501.9985 #### [facility] [address] [place], [address] Erythrocyte distribution width (RBC) [Ratio] 12.8 % Normal 11.6-14.6 [facility] Comment on above: Order Comment: Order Date: 12/20/24 Order Info: 0184-1 - CBCD Performed By: #### L 501.9520, L500.4050, L100.0100, L501.9985 #### [facility] [address] [place], [address] Hematocrit (Bld) [Volume fraction] 40.6 % Normal 37-47 [facility] Comment on above: Order Comment: Order Date: 12/20/24 Order Info: 0184 - CBCD Performed By: #### L 501.9520, L500.4050, L100.0100, L501.9985 #### [facility] [address] [place], [address] Hemoglobin (Bld) [Mass/Vol] 13.4 g/dL Normal 12.0-15.0 [facility] Comment on above: Order Comment: Order Date: 12/20/24 Order Info: 0184-1 - CBCD Performed By: #### L 501.9520, L500.4050, L100.0100, L501.9985 #### [facility] [address] [place], [address] IG% 0.200 Normal 0.0-0.9 [facility] Comment on above: Order Comment: Order Date: 12/20/24 Order Info: 0184-1 - CBCD Result Comment: IG% - Immature Granulocytes (promyelocytes, myelocytes and metamyelocytes) > 1% indicates that a LEFT SHIFT is Present. Performed By: #### L 501.9520, L500.4050, L100.0100, L501.9985 #### [facility] [address] [place], [address] Lymphocytes/100 WBC (Bld) 25.6 % Normal 19-41 [facility] Comment on above: Order Comment: Order Date: 12/20/24 Order Info: 0184-1 - CBCD Performed By: #### L 501.9520, L500.4050, L100.0100, L501.9985 #### [facility] [address] [place], [address] MCH (RBC) [Entitic mass] 33.5 pg High 27.0-32.0 [facility] Comment on above: Order Comment: Order Date: 12/20/24 Order Info: 0184-1 - CBCD Performed By: #### L 501.9520, L500.4050, L100.0100, L501.9985 #### [facility] [address] [place], [address] MCHC (RBC) [Mass/Vol] 33.0 g/dL Normal 32-36 [facility] Comment on above: Order Comment: Order Date: 12/20/24 Order Info: 0184-1 - CBCD Performed By: #### L 501.9520, L500.4050, L100.0100, L501.9985 #### [facility] [address] [place], [address] MCV (RBC) [Entitic vol] 101.5 fL High 81-99 [facility] Comment on above: Order Comment: Order Date: 12/20/24 Order Info: 0184-1 - CBCD Performed By: #### L 501.9520, L500.4050, L100.0100, L501.9985 #### [facility] [address] [place], [address] Monocytes/100 WBC (Bld) 8.9 % Normal 0-10 [facility] Comment on above: Order Comment: Order Date: 12/20/24 Order Info: 0184-1 - CBCD Performed By: #### L 501.9520, L500.4050, L100.0100, L501.9985 #### [facility] [address] [place], [address] Neutrophils/100 WBC (Bld) 59.8 % Normal 47-70 [facility] Comment on above: Order Comment: Order Date: 12/20/24 Order Info: 0184-1 - CBCD Performed By: #### L 501.9520, L500.4050, L100.0100, L501.9985 #### [facility] [address] [place], [address] Nucleated RBC (Bld) [#/Vol] 0 10*3/uL Normal 0-5 [facility] Comment on above: Order Comment: Order Date: 12/20/24 Order Info: 0184-1 - CBCD Performed By: #### L 501.9520, L500.4050, L100.0100, L501.9985 #### [facility] [address] [place], [address] Platelet mean volume (Bld) [Entitic vol] 11.5 fL Normal 6.2-12.0 [facility] Comment on above: Order Comment: Order Date: 12/20/24 Order Info: 0184-1 - CBCD Performed By: #### L 501.9520, L500.4050, L100.0100, L501.9985 #### [facility] [address] [place], [address] Platelets (Bld) [#/Vol] 195 10*3/uL Normal 150-450 [facility] Comment on above: Order Comment: Order Date: 12/20/24 Order Info: 0184-1 - CBCD Performed By: #### L 501.9520, L500.4050, L100.0100, L501.9985 #### [facility] [address] [place], [address] RBC (Bld) [#/Vol] 4.00 10*6/uL Low 4.2-5.4 [facility] Comment on above: Order Comment: Order Date: 12/20/24 Order Info: 0184-1 - CBCD Performed By: #### L 501.9520, L500.4050, L100.0100, L501.9985 #### [facility] [address] [place], [address] RDW SD 48.7 fl High 35.1-43.9 [facility] Comment on above: Order Comment: Order Date: 12/20/24 Order Info: 0184- - CBCD Performed By: #### L 501.9520, L500.4050, L100.0100, L501.9985 #### [facility] [address] [place], [address] WBC (Bld) [#/Vol] 4.0 10*3/uL Low 4.4-11.[address] [facility] Comment on above: Order Comment: Order Date: 12/20/24 Order Info: 0184-1 - CBCD Performed By: #### L 501.9520, L500.4050, L100.0100, L501.9985 #### [facility] [address] [place], [address] Carbon dioxide, total [Moles /volume] in Central venous bloodOrdered By: Jerel Benson on 12-23-2024 CO2 [Moles/Vol] 24.6 mmol/L 21.0-32.0 [facility] Chloride assayOrdered By: Xenia Benson on 12-23-2024 Chloride [Moles/Vol] 104 mmol/L 98-108 [facility] Comprehensive Metabolic Prof ilon 12-23-2024 Albumin [Mass/Vol] 4.4 g/dL Normal 3.4-4.[address] [facility] Comment on above: Order Comment: Order Date: 12/20/24 Order Info: 0786-1 - CMP Order Info: 3016-3 - TSH Performed By: #### L 501.9520, L500.4050, L100.0100, L501.9985 #### [facility] [address] [place], [address] Albumin/Globulin [Mass ratio] 3.8 {ratio} High 0.9-2.4 [facility] Comment on above: Order Comment: Order Date: 12/20/24 Order Info: 0786-1 - [facility] Order Info: 3 - TSH Performed By: #### L 501.9520, L500.4050, L100.0100, L501.9985 #### [facility] [address] [place], [address] ALK PHOS 69 U/L Normal 35-104 [facility] Comment on above: Order Comment: Order Date: 12/20/24 Order Info: 0786- - [facility] Order Info: 3 - TSH Performed By: #### L 501.9520, L500.4050, L100.0100, L501.9985 #### [facility] [address] [place], [address] ALT [Catalytic activity/Vol] 22 U/L Normal <=34 [facility] Comment on above: Order Comment: Order Date: 12/20/24 Order Info: 0786-1 - CMP Order Info: 3 - TSH Performed By: #### L 501.9520, L500.4050, L100.0100, L501.9985 #### [facility] [address] [place], [address] AST [Catalytic activity/Vol] 29 U/L Normal <=31 [facility] Comment on above: Order Comment: Order Date: 12/20/24 Order Info: 0786-1 - CMP Order Info: 301-3 - TSH Performed By: #### L 501.9520, L500.4050, L100.0100, L501.9985 #### [facility] [address] [place], [address] Bilirubin [Mass/Vol] 0.33 mg/dL Normal 0.00-1.30 [facility] Comment on above: Order Comment: Order Date: 12/20/24 Order Info: 0786-1 - CMP Order Info: 301-3 - TSH Performed By: #### L 501.9520, L500.4050, L100.0100, L501.9985 #### [facility] [address] [place], [address] BUN/CRE 34.0 RATIO High 10-20 [facility] Comment on above: Order Comment: Order Date: 12/20/24 Order Info: 0786-1 - CMP Order Info: 3 - TSH Performed By: #### L 501.9520, L500.4050, L100.0100, L501.9985 #### [facility] [address] [place], [address] Calcium [Mass/Vol] 9.1 mg/dL Normal 7.6-11.[address] [facility] Comment on above: Order Comment: Order Date: 12/20/24 Order Info: 0786-1 - CMP Order Info: 3013 - TSH Performed By: #### L 501.9520, L500.4050, L100.0100, L501.9985 #### [facility] [address] [place], [address] Chloride [Moles/Vol] 104 mmol/L Normal 98-108 [facility] Comment on above: Order Comment: Order Date: 12/20/24 Order Info: 0786-1 - CMP Order Info: 3013 - TSH Performed By: #### L 501.9520, L500.4050, L100.0100, L501.9985 #### [facility] [address] [place], [address] CO2 [Moles/Vol] 24.6 mmol/L Normal 21.0-32.0 [facility] Comment on above: Order Comment: Order Date: 12/20/24 Order Info: 0786-1 - CMP Order Info: 3016 - TSH Performed By: #### L 501.9520, L500.4050, L100.0100, L501.9985 #### [facility] [address] [place], [address] Creatinine [Mass/Vol] 0.75 mg/dL Normal 0.70-1.20 [facility] Comment on above: Order Comment: Order Date: 12/20/24 Order Info: 0786-1 - CMP Order Info: 3015-10 - TSH Performed By: #### L 501.9520, L500.4050, L100.0100, L501.9985 #### [facility] [address] [place], [address] GAP 10 Normal 5-15 [facility] Comment on above: Order Comment: Order Date: 12/20/24 Order Info: 0786-1 - [facility] Order Info: 3016 - TSH Performed By: #### L 501.9520, L500.4050, L100.0100, L501.9985 #### [facility] [address] [place], [address] GFR/1.73 sq M.predicted among non-blacks MDRD (S/P/Bld) [Vol rate/Area] 79 mL/min/{1.73_m2} Normal >60 [facility] Comment on above: Order Comment: Order Date: 12/20/24 Order Info: 0786-1 - CMP Order Info: 301-3 - TSH Result Comment: mL/m in/1.73m2 CKD-EPI Creatinine Equation (2020) Performed By: #### L 501.9520, L500.4050, L100.0100, L501.9985 #### [facility] [address] [place], [address] Globulin (S) [Mass/Vol] 1.2 g/dL Low 2.2-4.2 [facility] Comment on above: Order Comment: Order Date: 12/20/24 Order Info: 0786-1 - CMP Order Info: 301-3 - TSH Performed By: #### L 501.9520, L500.4050, L100.0100, L501.9985 #### [facility] [address] [place], [address] Glucose [Mass/Vol] 117 mg/dL High 70-[address] [facility] Comment on above: Order Comment: Order Date: 12/20/24 Order Info: 0786-1 - CMP Order Info: 301-3 - TSH Performed By: #### L 501.9520, L500.4050, L100.0100, L501.9985 #### [facility] [address] [place], [address] Potassium [Moles/Vol] 4.3 mmol/L Normal 3.3-5.1 [facility] Comment on above: Order Comment: Order Date: 12/20/24 Order Info: 0786-1 - CMP Order Info: 301-3 - TSH Performed By: #### L 501.9520, L500.4050, L100.0100, L501.9985 #### [facility] [address] [place], [address] Sodium [Moles/Vol] 139 mmol/L Normal 133-[address] [facility] Comment on above: Order Comment: Order Date: 12/20/24 Order Info: 0786-1 - CMP Order Info: 3016-3 - TSH Performed By: #### L 501.9520, L500.4050, L100.0100, L501.9985 #### [facility] [address] [place], [address] T PROT 5.5 g/dL Low 5.9-8.4 [facility] Comment on above: Order Comment: Order Date: 12/20/24 Order Info: 0786-1 - CMP Order Info: 3016-3 - TSH Performed By: #### L 501.9520, L500.4050, L100.0100, L501.9985 #### [facility] [address] [place], [place], [address] Urea nitrogen [Mass/Vol] 26 mg/dL High 4-19 [facility] Comment on above: Order Comment: Order Date: 12/20/24 Order Info: 0786-1 - CMP Order Info: 3016-3 - TSH Performed By: #### L 501.9520, L500.4050, L100.0100, L501.9985 #### [facility] [address] [place], [address] Eosinophil percentageOrdered By: Jerel Benson on 12-23-2024 Eosinophils/100 WBC (Bld) 4.0 % 0-5 [facility] Erythrocyte distribution wid th ratioOrdered By: Jerel Benson on 12-23-2024 Erythrocyte distribution width (RBC) [Ratio] 12.8 % 11.6-14.6 [facility] Erythrocyte distribution wid th standard deviationOrdered By: Jerel Kelley on 12-23-2024 Erythrocyte distribution width (RBC) [Ratio] 48.7 fl High 35.1-43.9 [facility] Glomerular filtration rate ( GFR) estimation/1.73 sq m using serum, plasma, or whole bOrdered By: Jerel Benson on 12-23-2024 GFR/1.73 sq M.predicted among non-blacks MDRD (S/P/Bld) [Vol rate/Area] 79 mL/min/{1.73_m2} >60 [facility] Comment on above: mL/min/1.73m2 CKD-EP I Creatinine Equation (2020) Hematocrit Auto (Bld) [Volum e fraction]Ordered By: Jerel Benson on 12-23-2024 Hematocrit (Bld) [Volume fraction] 40.6 % 37-47 [facility] Hemoglobin A1con 12-23-2024 HbA1c (Bld) [Mass fraction] 6.7 % High <=5.6 [facility] Comment on above: Order Comment: Order Date: 12/20/24 Order Info: 4548-4 - A1C Result Comment: Norm al < 5.7 % Prediabetic 5.7 - 6.4 % Diabetic >or= 6.5 % Please note range changes. Performed By: #### L 501.9507, L500.4050, L100.0100, L501.9985 #### [facility] [address] [place], [place], [id number] Hemoglobin A1c percentageOrd ered By: Jerel Benson on 12-23-2024 HbA1c (Bld) [Mass fraction] 6.7 % High <5.7 [facility] Comment on above: Normal < 5.7 % Predi abetic 5.7 - 6.4 % Diabetic >or= 6.5 % Please note range changes. Hemoglobin measurementOrdere d By: Jerel Benson on 12-23-2024 Hemoglobin (Bld) [Mass/Vol] 13.4 g/dL 12.0-15.0 [facility] Immature granulocytes/100 WB C Auto (Bld)Ordered By: Jerel Benson on 12-23-2024 Immature granulocytes/100 WBC (Bld) 0.200 % 0.0-0.9 [facility] Comment on above: IG% - Immature Granu locytes (promyelocytes, myelocytes and metamyelocytes) > 1% indicates that a LEFT SHIFT is Present. Laboratory - Chemistry and C hemistry - challengeOrdered By: Jerel Benson on 12-23-2024 AST [Catalytic activity/Vol] 29 U/L <32 [facility] MCV (mean corpuscular volume ) determinationOrdered By: Jerel Benson on 12-23-2024 MCV (RBC) [Entitic vol] 101.5 fL High 81-99 [facility] Mean corpuscular hemoglobin (MCH) determinationOrdered By: Jerel Benson on 12-23-2024 MCH (RBC) [Entitic mass] 33.5 pg High 27.0-32.0 [facility] Mean corpuscular hemoglobin concentration (MCHC) determinationOrdered By: Jerel Benson on 12-23-2024 MCHC (RBC) [Mass/Vol] 33.0 g/dL 32-36 [facility] Mean platelet volume determi nationOrdered By: Jerel Benson on 12-23-2024 Platelet mean volume (Bld) [Entitic vol] 11.5 fL 6.2-12.0 [facility] Monocyte percentageOrdered B y: Jerel Benson on 12-23-2024 Monocytes/100 WBC (Bld) 8.9 % 0-10 [facility] Neutrophil percentageOrdered By: Jerel Benson on 12-23-2024 Neutrophils/100 WBC (Bld) 59.8 % 47-70 [facility] Nucleated red blood cell per centageOrdered By: Jerel Benson on 12-23-2024 Nucleated RBC/100 WBC (Bld) [Ratio] 0 % 0-5 [facility] Platelet countOrdered By: Xenia Benson on 12-23-2024 Platelets (Bld) [#/Vol] 195 10*3/uL 150-450 [facility] Potassium measurement (mass/ volume)Ordered By: Jerel Benson on 12-23-2024 Potassium (Unsp spec) [Mass/Vol] 4.3 mmol/L 3.3-5.1 [facility] RBC Auto (Bld) [#/Vol]Ordere d By: Jerel Benson on 12-23-2024 RBC (Bld) [#/Vol] 4.00 10*6/uL Low 4.2-5.4 [facility] Serum creatinine measurement (mass/volume)Ordered By: Jerel Benson on 12-23-2024 Creatinine [Mass/Vol] 0.75 mg/dL 0.70-1.20 [facility] Serum globulin measurementOr dered By: Jerel Benson on 12-23-2024 Globulin (S) [Mass/Vol] 1.2 g/dL Low 2.2-4.2 [facility] Serum glucose measurement (m ass/volume)Ordered By: Jerel Benson on 12-23-2024 Glucose [Mass/Vol] 117 mg/dL High 70-[address] [facility] Serum or plasma alanine rodriguez otransferase (ALT) measurementOrdered By: Jerel Benson on 12-23-2024 ALT [Catalytic activity/Vol] 22 U/L <35 [facility] Serum or plasma albumin trevor urement (mass/volume)Ordered By: Jerel Benson on 12-23-2024 Albumin [Mass/Vol] 4.4 g/dL 3.4-4.[address] [facility] Serum or plasma albumin/glob ulin mass ratioOrdered By: Jerel Benson on 12-23-2024 Albumin/Globulin [Mass ratio] 3.8 {ratio} High 0.9-2.4 [facility] Serum or plasma alkaline lico sphatase measurementOrdered By: Jerel Benson on 12-23-2024 ALP [Catalytic activity/Vol] 69 U/L 35-104 [facility] Serum or plasma calcium trevor urement (mass/volume)Ordered By: Jerel Benson on 12-23-2024 Calcium [Mass/Vol] 9.1 mg/dL 7.6-11.[address] [facility] Serum or plasma urea nitroge n measurement (mass/volume)Ordered By: Jerel Benson on 12-23-2024 Urea nitrogen [Mass/Vol] 26 mg/dL High 4-19 [facility] Sodium levelOrdered By: Jersey arnulfo Kelley on 12-23-2024 Sodium [Moles/Vol] 139 mmol/L 133-[address] [facility] TSH DL <= 0.005 mIU/L QnOrde red By: Jerseyarnulfo Kelley on 12-23-2024 TSH Qn 2.040 uIU/mL 0.300-4.200 [facility] Thyroid Stim Hormone (TSH)on 12-23-2024 TSH 2.040 uIU/mL Normal 0.300-4.200 [facility] Comment on above: Order Comment: Order Date: 12/20/24 Order Info: 0786-1 - CMP Order Info: 3016-3 - TSH Performed By: #### L 501.9520, L500.4050, L100.0100, L501.9985 #### [facility] [address] [place], [address] Total proteinOrdered By: Lesia Benson on 12-23-2024 Protein [Mass/Vol] 5.5 g/dL Low 5.9-8.[address] [facility] Vitamin D,25 Hydroxyon 12-23 Vitamin D 25-OH 44.1 ng/mL Normal 30-100 [facility] Comment on above: Order Comment: Order Date: 12/20/24 Order Info: 0786-1 - CMP Order Info: 3016-3 - TSH Result Comment: Soraida min D Status Deficiency: <20 ng/mL (50nmol/L) Insufficiency: 20-30 ng/mL (50-75 nmol/L) Sufficiency: 30-100 ng/mL (75-250 nmol/L) Toxicity: >100 ng/mL (>250 nmol/L) Performed By: #### L 506.1001 #### [facility] [address] [place], [address] White blood cell (WBC) count Ordered By: Jerel Benson on 12-23-2024 WBC (Bld) [#/Vol] 4.0 10*3/uL Low 4.4-11.[address] [facility] .Auto Diffon 04-16-2023 Basophil, Absolute 0.0 10 3/mcL Normal 0.0-0.2 [facility] ([place]) Comment on above: Performed By: #### C BC, ADIFF, GFR, BMP, ANEU #### [address] [address] Basophils/100 WBC (Bld) 0.7 % Normal 0.0-2.5 [facility] ([place]) Comment on above: Performed By: #### C BC, ADIFF, GFR, BMP, ANEU #### [address] [address] Eosinophil, Absolute 0.1 10 3/mcL Normal 0.0-0.4 [facility] ([place]) Comment on above: Performed By: #### C BC, ADIFF, GFR, BMP, ANEU #### [address] [address] Eosinophils/100 WBC (Bld) 1.6 % Normal 0.0-7.0 [facility] ([place]) Comment on above: Performed By: #### C BC, ADIFF, GFR, BMP, ANEU #### [address] [address] Lymphocyte, Absolute 0.6 10 3/mcL Low 0.8-3.9 [facility] ([place] Comment on above: Performed By: #### C BC, ADIFF, GFR, BMP, ANEU #### [address] [address] Lymphocytes/100 WBC (Bld) 11.4 % Normal 10.0-50.0 [facility] ([place]) Comment on above: Performed By: #### C BC, ADIFF, GFR, BMP, ANEU #### [address] [address] Monocyte, Absolute 0.6 10 3/mcL Normal 0.2-1.0 [facility] ([place]) Comment on above: Performed By: #### C BC, ADIFF, GFR, BMP, ANEU #### [address] [address] Monocytes/100 WBC (Bld) 10.6 % Normal 1.7-13.0 [facility] ([place]) Comment on above: Performed By: #### C BC, ADIFF, GFR, BMP, ANEU #### [address] [address] Neutrophils/100 WBC (Bld) 75.7 % Normal 37.0-80.0 [facility] ([place]) Comment on above: Performed By: #### C BC, ADIFF, GFR, BMP, ANEU #### [address] [address] .GFRon 04-16-2023 GFR 92 ml/min/1.73sqm Normal [facility] ([place]) Comment on above: Result Comment: GFR Population [...] C BC, ADIFF, GFR, BMP, ANEU #### [address] [address] GFR Non- 76 ml/min/1.73sqm Normal [facility] ([place]) Comment on above: Result Comment: GFR Population [...] C BC, ADIFF, GFR, BMP, ANEU #### [address] [address] .NEUABSon 04-16-2023 Neutrophil, Absolute 4.3 10 3/mcL Normal 2.9-6.2 [facility] ([place] Comment on above: Performed By: #### C BC, ADIFF, GFR, BMP, ANEU #### [address] [address] BMPon 04-16-2023 BUN/Creatinine Ratio 19 ratio Normal 7-27 [facility] ([place]) Comment on above: Performed By: #### C BC, ADIFF, GFR, BMP, ANEU #### [address] [address] Calcium [Mass/Vol] 8.7 mg/dL Normal 8.4-10.2 [facility] ([place]) Comment on above: Performed By: #### C BC, ADIFF, GFR, BMP, ANEU #### [address] [address] Chloride [Moles/Vol] 103 mmol/L Normal 98-107 [facility] ([place]) Comment on above: Performed By: #### C BC, ADIFF, GFR, BMP, ANEU #### [address] [address] CO2 [Moles/Vol] 29 mmol/L Normal 23-31 [facility] ([place]) Comment on above: Performed By: #### C BC, ADIFF, GFR, BMP, ANEU #### [address] [address] Creatinine [Mass/Vol] 0.74 mg/dL Normal 0.55-1.02 [facility] ([place]) Comment on above: Performed By: #### C BC, ADIFF, GFR, BMP, ANEU #### [address] [address] Electrolyte Balance 7.0 mEq/L Normal 4.0-15.0 [facility] ([place]) Comment on above: Performed By: #### C BC, ADIFF, GFR, BMP, ANEU #### [address] [address] Glucose [Mass/Vol] 137 mg/dL High 83-110 [facility] ([place]) Comment on above: Performed By: #### C BC, ADIFF, GFR, BMP, ANEU #### [address] [address] Potassium [Moles/Vol] 4.3 mmol/L Normal 3.5-5.1 [facility] ([place]) Comment on above: Performed By: #### C BC, ADIFF, GFR, BMP, ANEU #### [address] [address] Sodium [Moles/Vol] 139 mmol/L Normal 136-145 [facility] ([place]) Comment on above: Performed By: #### C BC, ADIFF, GFR, BMP, ANEU #### [address] [address] Urea nitrogen [Mass/Vol] 14 mg/dL Normal 7-18 [facility] ([place]) Comment on above: Performed By: #### C BC, ADIFF, GFR, BMP, ANEU #### [address] [address] CBCon 04-16-2023 Erythrocyte distribution width (RBC) [Ratio] 13.7 % Normal 11.5-14.5 [facility] ([place]) Comment on above: Performed By: #### C BC, ADIFF, GFR, BMP, ANEU #### [place] [address] Hematocrit (Bld) [Volume fraction] 34.8 % Low 37.0-47.0 [facility] ([place]) Comment on above: Performed By: #### C BC, ADIFF, GFR, BMP, ANEU #### [place] [address] Hgb 11.8 G/dL Low 12.0-16.0 [facility] ([place]) Comment on above: Performed By: #### C BC, ADIFF, GFR, BMP, ANEU #### [address] [address] MCH (RBC) [Entitic mass] 33.3 pg High 27.0-31.2 [facility] ([place]) Comment on above: Performed By: #### C BC, ADIFF, GFR, BMP, ANEU #### [address] [address] MCHC 33.9 G/dL Normal 33.0-37.0 [facility] ([place]) Comment on above: Performed By: #### C BC, ADIFF, GFR, BMP, ANEU #### [address] [address] MCV (RBC) [Entitic vol] 98.2 fL High 80.0-94.0 [facility] ([place]) Comment on above: Performed By: #### C BC, ADIFF, GFR, BMP, ANEU #### [place] [id number] Platelet 139 10 3/mcL Normal 130-400 [facility] ([place]) Comment on above: Performed By: #### C BC, ADIFF, GFR, BMP, ANEU #### [address] [address] Platelet mean volume (Bld) [Entitic vol] 9.3 fL Normal 7.4-10.4 [facility] ([place]) Comment on above: Performed By: #### C BC, ADIFF, GFR, BMP, ANEU #### [place] [address] RBC 3.55 10 6/mcL Low 4.20-5.40 [facility] ([place] Comment on above: Performed By: #### C BC, ADIFF, GFR, BMP, ANEU #### [address] [address] WBC 5.7 10 3/mcL Normal 4.6-10.8 [facility] ([place] Comment on above: Performed By: #### C BC, ADIFF, GFR, BMP, ANEU #### [address] [address] LABORATORYOrdered By: SYSTEM SYSTEM on 04-16-2023 Basophil, [...] Basophil, Absolute 0.0 10 3/mcL Normal 0.0-0.2 [facility] ([place] Comment on above: Performed By: #### C BC, ADIFF, GFR, BMP, ANEU #### [address] [address] Basophils/100 WBC (Bld) 0.2 % Normal 0.0-2.5 [facility] ([place] Comment on above: Performed By: #### C BC, ADIFF, GFR, BMP, ANEU #### [address] [address] Eosinophil, Absolute 0.0 10 3/mcL Normal 0.0-0.4 [facility] ([place] Comment on above: Performed By: #### C BC, ADIFF, GFR, BMP, ANEU #### [address] [address] Eosinophils/100 WBC (Bld) 0.0 % Normal 0.0-7.0 [facility] ([place] Comment on above: Performed By: #### C BC, ADIFF, GFR, BMP, ANEU #### [address] [address] Lymphocyte, Absolute 0.7 10 3/mcL Low 0.8-3.9 [facility] ([place] Comment on above: Performed By: #### C BC, ADIFF, GFR, BMP, ANEU #### [address] [address] Lymphocytes/100 WBC (Bld) 8.5 % Low 10.0-50.0 [facility] ([place] Comment on above: Performed By: #### C BC, ADIFF, GFR, BMP, ANEU #### [address] [address] Monocyte, Absolute 0.7 10 3/mcL Normal 0.2-1.0 [facility] ([place] Comment on above: Performed By: #### C BC, ADIFF, GFR, BMP, ANEU #### [address] [address] Monocytes/100 WBC (Bld) 9.1 % Normal 1.7-13.0 [facility] ([place] Comment on above: Performed By: #### C BC, ADIFF, GFR, BMP, ANEU #### [address] [address] Neutrophils/100 WBC (Bld) 82.2 % High 37.0-80.0 [facility] ([place]) Comment on above: Performed By: #### C BC, ADIFF, GFR, BMP, ANEU #### [address] [address] .GFRon 04-15-2023 GFR 87 ml/min/1.73sqm Normal [facility] ([place]) Comment on above: Result Comment: GFR Population [...] C BC, ADIFF, GFR, BMP, ANEU #### [address] [address] GFR Non- 72 ml/min/1.73sqm Normal [facility] ([place] Comment on above: Result Comment: GFR Population [...] C BC, ADIFF, GFR, BMP, ANEU #### [address] [address] .NEUABSon 04-15-2023 Neutrophil, Absolute 6.6 10 3/mcL High 2.9-6.2 [facility] ([place] Comment on above: Performed By: #### C BC, ADIFF, GFR, BMP, ANEU #### [address] [address] BMPon 04-15-2023 BUN/Creatinine Ratio 31 ratio High 7-27 [facility] ([place]) Comment on above: Performed By: #### C BC, ADIFF, GFR, BMP, ANEU #### [address] [address] Calcium [Mass/Vol] 8.5 mg/dL Normal 8.4-10.2 [facility] ([place]) Comment on above: Performed By: #### C BC, ADIFF, GFR, BMP, ANEU #### [address] [address] Chloride [Moles/Vol] 106 mmol/L Normal 98-107 [facility] ([place] Comment on above: Performed By: #### C BC, ADIFF, GFR, BMP, ANEU #### [address] [address] CO2 [Moles/Vol] 27 mmol/L Normal 23-31 [facility] ([place]) Comment on above: Performed By: #### C BC, ADIFF, GFR, BMP, ANEU #### [address] [address] Creatinine [Mass/Vol] 0.77 mg/dL Normal 0.55-1.02 [facility] ([place]) Comment on above: Performed By: #### C BC, ADIFF, GFR, BMP, ANEU #### [address] [address] Electrolyte Balance 7.0 mEq/L Normal 4.0-15.0 [facility] ([place]) Comment on above: Performed By: #### C BC, ADIFF, GFR, BMP, ANEU #### [address] [address] Glucose [Mass/Vol] 129 mg/dL High 83-110 [facility] ([place] Comment on above: Performed By: #### C BC, ADIFF, GFR, BMP, ANEU #### [address] [address] Potassium [Moles/Vol] 5.0 mmol/L Normal 3.5-5.1 [facility] ([place]) Comment on above: Performed By: #### C BC, ADIFF, GFR, BMP, ANEU #### [address] [address] Sodium [Moles/Vol] 140 mmol/L Normal 136-145 [facility] ([place] Comment on above: Performed By: #### C BC, ADIFF, GFR, BMP, ANEU #### [address] [address] Urea nitrogen [Mass/Vol] 24 mg/dL High 7-18 [facility] ([place]) Comment on above: Performed By: #### C BC, ADIFF, GFR, BMP, ANEU #### [address] [address] CBCon 04-15-2023 Erythrocyte distribution width (RBC) [Ratio] 13.6 % Normal 11.5-14.5 [facility] ([place]) Comment on above: Performed By: #### C BC, ADIFF, GFR, BMP, ANEU #### [address] [address] Hematocrit (Bld) [Volume fraction] 34.2 % Low 37.0-47.0 [facility] ([place] Comment on above: Performed By: #### C BC, ADIFF, GFR, BMP, ANEU #### [address] [address] Hgb 11.6 G/dL Low 12.0-16.0 [facility] ([place] Comment on above: Performed By: #### C BC, ADIFF, GFR, BMP, ANEU #### [address] [address] MCH (RBC) [Entitic mass] 33.3 pg High 27.0-31.2 [facility] ([place] Comment on above: Performed By: #### C BC, ADIFF, GFR, BMP, ANEU #### [address] [address] MCHC 34.0 G/dL Normal 33.0-37.0 [facility] ([place] Comment on above: Performed By: #### C BC, ADIFF, GFR, BMP, ANEU #### [address] [address] MCV (RBC) [Entitic vol] 98.1 fL High 80.0-94.0 [facility] ([place] Comment on above: Performed By: #### C BC, ADIFF, GFR, BMP, ANEU #### [place] [id number] Platelet 145 10 3/mcL Normal 130-400 [facility] ([place] Comment on above: Performed By: #### C BC, ADIFF, GFR, BMP, ANEU #### [address] [address] Platelet mean volume (Bld) [Entitic vol] 9.7 fL Normal 7.4-10.4 [facility] ([place] Comment on above: Performed By: #### C BC, ADIFF, GFR, BMP, ANEU #### [place] [id number] RBC 3.48 10 6/mcL Low 4.20-5.40 [facility] ([place] Comment on above: Performed By: #### C BC, ADIFF, GFR, BMP, ANEU #### [place] [id number] WBC 8.0 10 3/mcL Normal 4.6-10.8 [facility] ([place] Comment on above: Performed By: #### C BC, ADIFF, GFR, BMP, ANEU #### [address] [address] LABORATORYOrdered By: SYSTEM SYSTEM on 04-15-2023 Basophil, [...] 04-14-2023 ABO/Rh Interp Positive Invalid Interpretation Code [facility] ([place] Comment on above: Performed By: #### C BC, ADIFF, GFR, BMP, ANEU #### [place] [address] Gel ABSon 04-14-2023 Antibody Screen Gel Negative Normal [facility] ([place]) Comment on above: Performed By: #### C BC, ADIFF, GFR, BMP, ANEU #### [address] [address] LABORATORYOrdered By: Toby Jesus on 04-14-2023 ABO/Rh Interp Positive Invalid Interpretation Code AO BB SS Antibody Screen Gel Negative [facility] (04/14/23 11:44 AM) Invalid Interpretation Code AO BB SS XR FLUORO 1-2 HRS TECH TIMEo n 04-14-2023 XR FLUORO 1-2 HRS TECH TIME ORIGINAL Images acquired, not reported on this accession number. Normal [facility] ([place]) XR HIP RIGHT W/PELVIS 4 VIEW Son [...] Date: 04/14/2023 4:12:15 PM Ordering Provider: AMBROSE Hadley [facility] ([place]) .Auto Diffon 03-16-2023 Basophil, Absolute 0.1 10 3/mcL Normal 0.0-0.2 [facility] ([place]) Comment on above: Performed By: #### G FR, ALB, CBC, ANEU, ADIFF, ABOG, ANSG, BMP #### [address] [address] Basophils/100 WBC (Bld) 1.1 % Normal 0.0-2.5 [facility] ([place] Comment on above: Performed By: #### G FR, ALB, CBC, ANEU, ADIFF, ABOG, ANSG, BMP #### [address] [address] Eosinophil, Absolute 0.1 10 3/mcL Normal 0.0-0.4 [facility] ([place] Comment on above: Performed By: #### G FR, ALB, CBC, ANEU, ADIFF, ABOG, ANSG, BMP #### [address] [address] Eosinophils/100 WBC (Bld) 1.9 % Normal 0.0-7.0 [facility] ([place] Comment on above: Performed By: #### G FR, ALB, CBC, ANEU, ADIFF, ABOG, ANSG, BMP #### [address] [address] Lymphocyte, Absolute 1.2 10 3/mcL Normal 0.8-3.9 [facility] ([place] Comment on above: Performed By: #### G FR, ALB, CBC, ANEU, ADIFF, ABOG, ANSG, BMP #### [address] [address] Lymphocytes/100 WBC (Bld) 21.6 % Normal 10.0-50.0 [facility] ([place] Comment on above: Performed By: #### G FR, ALB, CBC, ANEU, ADIFF, ABOG, ANSG, BMP #### [address] [address] Monocyte, Absolute 0.4 10 3/mcL Normal 0.2-1.0 [facility] ([place] Comment on above: Performed By: #### G FR, ALB, CBC, ANEU, ADIFF, ABOG, ANSG, BMP #### [address] [address] Monocytes/100 WBC (Bld) 7.8 % Normal 1.7-13.0 [facility] ([place] Comment on above: Performed By: #### G FR, ALB, CBC, ANEU, ADIFF, ABOG, ANSG, BMP #### [address] [address] Neutrophils/100 WBC (Bld) 67.6 % Normal 37.0-80.0 [facility] ([place] Comment on above: Performed By: #### G FR, ALB, CBC, ANEU, ADIFF, ABOG, ANSG, BMP #### [address] [address] .GFRon 03-16-2023 GFR 87 ml/min/1.73sqm Normal [facility] ([place]) Comment on above: Result Comment: GFR Population [...] C BC, ADIFF, GFR, BMP, ANEU #### [address] [address] GFR Non- 72 ml/min/1.73sqm Normal [facility] ([place]) Comment on above: Result Comment: GFR Population [...] C BC, ADIFF, GFR, BMP, ANEU #### [address] [address] .NEUABSon 03-16-2023 Neutrophil, Absolute 3.8 10 3/mcL Normal 2.9-6.2 [facility] ([place]) Comment on above: Performed By: #### G FR, ALB, CBC, ANEU, ADIFF, ABOG, ANSG, BMP #### [address] [address] ALBon 03-16-2023 Albumin Level 4.3 G/dL Normal 3.4-4.8 [facility] ([place]) Comment on above: Performed By: #### C BC, ADIFF, GFR, BMP, ANEU #### [address] [address] BMPon 03-16-2023 BUN/Creatinine Ratio 38 ratio High 7-27 [facility] ([place]) Comment on above: Performed By: #### G FR, ALB, CBC, ANEU, ADIFF, ABOG, ANSG, BMP #### [address] [address] Calcium [Mass/Vol] 9.6 mg/dL Normal 8.4-10.2 [facility] ([place]) Comment on above: Performed By: #### G FR, ALB, CBC, ANEU, ADIFF, ABOG, ANSG, BMP #### [address] [address] Chloride [Moles/Vol] 103 mmol/L Normal 98-107 [facility] ([place]) Comment on above: Performed By: #### G FR, ALB, CBC, ANEU, ADIFF, ABOG, ANSG, BMP #### [place] [address] CO2 [Moles/Vol] 31 mmol/L Normal 23-31 [facility] ([place]) Comment on above: Performed By: #### G FR, ALB, CBC, ANEU, ADIFF, ABOG, ANSG, BMP #### [address] [address] Creatinine [Mass/Vol] 0.77 mg/dL Normal 0.55-1.02 [facility] ([place]) Comment on above: Performed By: #### G FR, ALB, CBC, ANEU, ADIFF, ABOG, ANSG, BMP #### [address] [address] Electrolyte Balance 6.0 mEq/L Normal 4.0-15.0 [facility] ([place]) Comment on above: Performed By: #### G FR, ALB, CBC, ANEU, ADIFF, ABOG, ANSG, BMP #### [place] [address] Glucose [Mass/Vol] 112 mg/dL High 83-110 [facility] ([place]) Comment on above: Performed By: #### G FR, ALB, CBC, ANEU, ADIFF, ABOG, ANSG, BMP #### [address] [address] Potassium [Moles/Vol] 4.5 mmol/L Normal 3.5-5.1 [facility] ([place]) Comment on above: Performed By: #### G FR, ALB, CBC, ANEU, ADIFF, ABOG, ANSG, BMP #### [address] [address] Sodium [Moles/Vol] 140 mmol/L Normal 136-145 [facility] ([place]) Comment on above: Performed By: #### G FR, ALB, CBC, ANEU, ADIFF, ABOG, ANSG, BMP #### [place] [address] Urea nitrogen [Mass/Vol] 29 mg/dL High 7-18 [facility] ([place]) Comment on above: Performed By: #### G FR, ALB, CBC, ANEU, ADIFF, ABOG, ANSG, BMP #### [place] [id number] CBCon 03-16-2023 Erythrocyte distribution width (RBC) [Ratio] 13.5 % Normal 11.5-14.5 [facility] ([place]) Comment on above: Order Comment: Pre-A dmission Testing Performed By: #### G FR, ALB, CBC, ANEU, ADIFF, ABOG, ANSG, BMP #### [place] [address] Hematocrit (Bld) [Volume fraction] 42.1 % Normal 37.0-47.0 [facility] ([place]) Comment on above: Order Comment: Pre-A dmission Testing Performed By: #### G FR, ALB, CBC, ANEU, ADIFF, ABOG, ANSG, BMP #### [place] [address] Hgb 14.1 G/dL Normal 12.0-16.0 [facility] ([place]) Comment on above: Order Comment: Pre-A dmission Testing Performed By: #### G FR, ALB, CBC, ANEU, ADIFF, ABOG, ANSG, BMP #### [place] [id number] MCH (RBC) [Entitic mass] 32.6 pg High 27.0-31.2 [facility] ([place]) Comment on above: Order Comment: Pre-A dmission Testing Performed By: #### G FR, ALB, CBC, ANEU, ADIFF, ABOG, ANSG, BMP #### [address] [address] MCHC 33.4 G/dL Normal 33.0-37.0 [facility] ([place]) Comment on above: Order Comment: Pre-A dmission Testing Performed By: #### G FR, ALB, CBC, ANEU, ADIFF, ABOG, ANSG, BMP #### [address] [address] MCV (RBC) [Entitic vol] 97.7 fL High 80.0-94.0 [facility] ([place]) Comment on above: Order Comment: Pre-A dmission Testing Performed By: #### G FR, ALB, CBC, ANEU, ADIFF, ABOG, ANSG, BMP #### [address] [address] Platelet 189 10 3/mcL Normal 130-400 [facility] ([place]) Comment on above: Order Comment: Pre-A dmission Testing Performed By: #### G FR, ALB, CBC, ANEU, ADIFF, ABOG, ANSG, BMP #### [address] [address] Platelet mean volume (Bld) [Entitic vol] 10.1 fL Normal 7.4-10.4 [facility] ([place]) Comment on above: Order Comment: Pre-A dmission Testing Performed By: #### G FR, ALB, CBC, ANEU, ADIFF, ABOG, ANSG, BMP #### [address] [address] RBC 4.31 10 6/mcL Normal 4.20-5.40 [facility] ([place]) Comment on above: Order Comment: Pre-A dmission Testing Performed By: #### G FR, ALB, CBC, ANEU, ADIFF, ABOG, ANSG, BMP #### [address] [address] WBC 5.6 10 3/mcL Normal 4.6-10.8 [facility] ([place]) Comment on above: Order Comment: Pre-A dmission Testing Performed By: #### G FR, ALB, CBC, ANEU, ADIFF, ABOG, ANSG, BMP #### [address] [address] Gel ABOon 03-16-2023 ABO/Rh Interp Positive Invalid Interpretation Code [facility] ([place]) Comment on above: Order Comment: SURG ANAND 9/12 -AC Performed By: #### C BC, ADIFF, GFR, BMP, ANEU #### [address] [address] Gel ABSon 03-16-2023 Antibody Screen Gel Negative Normal [facility] ([place]) Comment on above: Order Comment: SURG ANAND 9/12 -AC Performed By: #### C BC, ADIFF, GFR, BMP, ANEU #### [address] [address] LABORATORYOrdered By: Va Fink on 03-16-2023 ABO/Rh [...] 10:31 AM) Invalid Interpretation Code Not Detected AH Auto Viro/Sero SS Comment on above: Result Comment: Note s MRSA PCR Int MRSA DNA not detecte d by Real-Time Polymerase Chain Reaction (PCR). A [...] MRSA (PCR) Not detected Normal Not Detected [facility] ([place]) Comment on above: Result Comment: Note s Performed By: #### M RSAPCR #### [address] [address] MRSA PCR Int Normal [facility] ([place]) Comment on above: Result Comment: MRSA DNA [...] Below Performed By: #### M RSAPCR #### [address] [address] Clifford 12-31-2022 LAUREN Telephone (OBGYW) MICHAELA LUNA ([id number]) 1940 F Date Time Provider Department 12/31/22 GUNNER STEVENS During your visit today, we recorded the following information about you: Lisbet Schafer RN 12/31/2022 9:55 AM Signed Patient requesting mammogram order be faxed to [facility]. Order to RR to sign. Patient aware this will be sent to [facility] today. No need to call her [...] TALA CORBIN RN on 12/31/22 Normal [facility] Basophil percentageon 2021 Bilirubin [Mass/Vol] 0.40 mg/dL 0.20-1.00 [facility] Work Phone: Comment on above: For patients on eltr ombopag therapy, use of Dimension [place] TBIL is not recommended. Chloride [Moles/Vol] 107 mmol/L 98-107 [facility] Work Phone: Cholesterol [Mass/Vol] 227 mg/dL <200 [facility] Work Phone: Comment on above: <200 mg/dL Desirable 200-240 mg/dL Borderline >240 mg/dL High Risk Glucose [Mass/Vol] 120 mg/dL 74-[address] [facility] Work Phone: Comment on above: Fasting Glucose resu lt from 100 to 125 mg/dL suggests IMPAIRED HOMEOSTASIS per A.D.A. criteria. Potassium [Moles/Vol] 4.2 mmol/L 3.5-5.1 [facility] Work Phone: Protein [Mass/Vol] 7.2 g/dL 6.4-8.[address] [facility] Work Phone: Sodium [Moles/Vol] 141 mmol/L 136-[address] [facility] Work Phone: Triglyceride [Mass/Vol] 81 mg/dL <199 [facility] Work Phone: Comment on above: The drugs N-Acetylcy steine and Metamizole may falsely depress this assay.Serum Triglycerides Reference Interval Normal <150 mg/dL Borderline high 150 - 199 mg/dL High 200 - 499 mg/dL Very High > or = 500 mg/dL Laboratory - Chemistry and C hemistry - challengeon 07-14-2022 ALP [Catalytic activity/Vol] 64 U/L 45-117 [facility] Work Phone: ALT [Catalytic activity/Vol] 36 U/L 13-56 [facility] Work Phone: CO2 [Moles/Vol] 29.0 mmol/L 21.0-32.0 [facility] Work Phone: Globulin (S) [Mass/Vol] 3.2 g/dL 2.2-4.2 [facility] Work Phone: Urea nitrogen/Creatinine [Mass ratio] 24.9 mg/mg 10-20 [facility] Work Phone: No Panel Informationon 07-14 Estimated GFR (MDRD) Amer 94 mL/min >60 [facility] Work Phone: Comment on above: GFR Calc Estimated GFR (MDRD) Non-Af Amer 78 mL/min >60 [facility] Work Phone: Comment on above: Non- GFR Calc Thyroid Stimulating Hormone (TSH) 2.47 uIU/mL 0.358-3.74 [facility] Work Phone: Serum or plasma albumin trevor urement (mass/volume)on 07-14-2022 Albumin [Mass/Vol] 4.0 g/dL 3.2-5.[address] [facility] Work Phone: Serum or plasma albumin/glob ulin mass ratioon 07-14-2022 Albumin/Globulin [Mass ratio] 1.2 {ratio} 0.9-2.4 [facility] Work Phone: Serum or plasma calcium trevor urement (mass/volume)on 07-14-2022 Calcium [Mass/Vol] 10.1 mg/dL 8.5-10.[address] [facility] Work Phone: Serum or plasma cholesterol in HDL measurement (mass/volume)on 07-14-2022 Cholesterol in HDL [Mass/Vol] 110 mg/dL >40 [facility] Work Phone: Comment on above: The drugs N-Acetylcy steine and Metamizole may falsely depress this assay. Reference Range HDL <40 mg/dL Low HDL Cholesterol HDL >or= 60 mg/dL High HDL Cholesterol Serum or plasma cholesterol in VLDL measurement (mass/volume)on 07-14-2022 Cholesterol in VLDL [Mass/Vol] 16 mg/dL 5-40 [facility] Work Phone: Serum or plasma creatinine m easurement (mass/volume)on 07-14-2022 Creatinine [Mass/Vol] 0.76 mg/dL 0.55-1.02 [facility] Work Phone: Comment on above: The validity of the calculated GFR & GFRAA in patients over 70 years has not been determined. Clinical correlation is essential. Serum or plasma low density lipoprotein (LDL) cholesterol measurement (mass/volume)on 07-14-2022 Cholesterol in LDL [Mass/Vol] 101 mg/dL 0-130 [facility] Work Phone: Serum or plasma urea nitroge n measurement (mass/volume)on 07-14-2022 Urea nitrogen [Mass/Vol] 19 mg/dL 7-18 [facility] Work Phone: Thin prep Papanicolaou smear with manual screeningon 07-14-2022 Thin prep Papanicolaou smear with manual screening 28 U/L 15-37 [facility] Work Phone: Thin prep Papanicolaou smear with manual screening 5 5-15 [facility] Work Phone: Whole blood hemoglobin A1c/t otal hemoglobin ratio (mass fraction)on 07-14-2022 HbA1c (Bld) [Mass fraction] 6.5 % 3.8-5.6 [facility] Work Phone: Comment on above: Normal < 5.7 % Predi abetic 5.7 - 6.4 % Diabetic >or= 6.5 % Please note range changes. Basophil percentageon 2021 Bilirubin [Mass/Vol] 0.30 mg/dL 0.20-1.00 [facility] Work Phone: Comment on above: For patients on eltr ombopag therapy, use of Dimension [place] TBIL is not recommended. Chloride [Moles/Vol] 104 mmol/L 98-107 [facility] Work Phone: Glucose [Mass/Vol] 107 mg/dL 74-[address] [facility] Work Phone: Comment on above: Fasting Glucose resu lt from 100 to 125 mg/dL suggests IMPAIRED HOMEOSTASIS per A.D.A. criteria. Potassium [Moles/Vol] 4.2 mmol/L 3.5-5.1 [facility] Work Phone: [phone] Protein [Mass/Vol] 7.2 g/dL 6.4-8.[address] [facility] Work Phone: [phone] Sodium [Moles/Vol] 141 mmol/L 136-[address] [facility] Work Phone: [phone] WBC (Bld) [#/Vol] 5.1 10*3/uL 4.4-11.[address] [facility] Work Phone: [phone] Blood erythrocytes count (nu mber/volume)on 01-27-2022 RBC (Bld) [#/Vol] 4.18 10*6/uL 4.2-5.4 [facility] Work Phone: [phone] Blood hemoglobin measurement (mass/volume)on 01-27-2022 Hemoglobin (Bld) [Mass/Vol] 13.8 g/dL 12.0-15.0 [facility] Work Phone: [phone] Blood platelet mean volumeon 01-27-2022 Platelet mean volume (Bld) [Entitic vol] 12.3 fL 6.2-12.0 [facility] Work Phone: [phone] Determination of erythrocyte mean corpuscular volume (MCV)on 01-27-2022 MCV (RBC) [Entitic vol] 102.9 fL 81-99 [facility] Work Phone: [phone] Hematocrit Auto (Bld) [Volum e fraction]on 01-27-2022 Hematocrit (Bld) [Volume fraction] 43.0 % 37-47 [facility] Work Phone: [phone] Laboratory - Chemistry and C hemistry - challengeon 01-27-2022 ALP [Catalytic activity/Vol] 72 U/L 45-117 [facility] Work Phone: [phone] ALT [Catalytic activity/Vol] 37 U/L 13-56 [facility] Work Phone: [phone] CO2 [Moles/Vol] 28.0 mmol/L 21.0-32.0 [facility] Work Phone: [phone] Cobalamin (Vitamin B12) [Mass/Vol] 1008 pg/mL 211-911 [facility] Work Phone: [phone] Globulin (S) [Mass/Vol] 3.3 g/dL 2.2-4.2 [facility] Work Phone: [phone] Urea nitrogen/Creatinine [Mass ratio] 32.2 mg/mg 10-20 [facility] Work Phone: [phone] Laboratory - Hematology and Cell countson 01-27-2022 Erythrocyte distribution width (RBC) [Entitic vol] 47.9 fL 35.1-43.9 [facility] Work Phone: [phone] Erythrocyte distribution width (RBC) [Ratio] 12.6 % 11.6-14.6 [facility] Work Phone: [phone] MCH (RBC) [Entitic mass] 33.0 pg 27.0-32.0 [facility] Work Phone: [phone] MCHC Auto (RBC) [Mass/Vol]on 01-27-2022 MCHC (RBC) [Mass/Vol] 32.1 g/dL 32-36 [facility] Work Phone: [phone] No Panel Informationon 01-27 Estimated GFR (MDRD) Amer 101 mL/min >60 [facility] Work Phone: [phone] Comment on above: GFR Calc Estimated GFR (MDRD) Non-Af Amer 84 mL/min >60 [facility] Work Phone: [phone] Comment on above: Non- GFR Calc Platelets bldon 01-27-2022 Platelets (Bld) [#/Vol] 202 10*3/uL 150-450 [facility] Work Phone: [phone] Serum or plasma albumin trevor urement (mass/volume)on 01-27-2022 Albumin [Mass/Vol] 3.9 g/dL 3.2-5.[address] [facility] Work Phone: Serum or plasma albumin/glob ulin mass ratioon 01-27-2022 Albumin/Globulin [Mass ratio] 1.2 {ratio} 0.9-2.4 [facility] Work Phone: [phone] Serum or plasma calcium trevor urement (mass/volume)on 01-27-2022 Calcium [Mass/Vol] 9.6 mg/dL 8.5-10.[address] [facility] Work Phone: [phone] Serum or plasma creatinine m easurement (mass/volume)on 01-27-2022 Creatinine [Mass/Vol] 0.72 mg/dL 0.55-1.02 [facility] Work Phone: Comment on above: The validity of the calculated GFR & GFRAA in patients over 70 years has not been determined. Clinical correlation is essential. Serum or plasma folate measu rement (mass/volume)on 01-27-2022 Folate [Mass/Vol] 56.30 ng/mL 3.1-55.[address] [facility] Work Phone: Serum or plasma urea nitroge n measurement (mass/volume)on 01-27-2022 Urea nitrogen [Mass/Vol] 23 mg/dL 7-18 [facility] Work Phone: Thin prep Papanicolaou smear with manual screeningon 01-27-2022 Thin prep Papanicolaou smear with manual screening 28 U/L 15-37 [facility] Work Phone: Thin prep Papanicolaou smear with manual screening 9 5-15 [facility] Work Phone: Basophil percentageon 2021 Creatinine [Mass/Vol] 0.6 mg/dL 0.55-1.02 [facility] Work Phone: No Panel Informationon 11-11 Bedside Estimated GFR (eGFR) > 60.0000 mL/min >60 [facility] Work Phone: Vital Signs Date Time Vital Sign Value Performing Clinician Facility 04-16-2023 11:41-0400 Body temperature 98.6 [degF] DR AMBROSE SANTOS MD [facility] 04-16-2023 11:41-0400 Diastolic Blood Pressure Non-Invasive [address] AMBROSE SANTOS MD [facility] 04-16-2023 11:41-0400 Heart rate 78 /min DR AMBROSE SANTOS MD [facility] 04-16-2023 11:41-0400 Reason For Taking VItal Signs DR AMBROSE SANTOS MD [facility] 04-16-2023 11:41-0400 Respiratory rate 16 /min DR AMBROSE SANTOS MD [facility] 04-16-2023 11:41-0400 Systolic Blood Pressure Non-Invasive [address] AMBROSE SANTOS MD [facility] 04-16-2023 07:45-0400 Body temperature 98.24 [degF] DR AMBROSE SANTOS MD [facility] 04-16-2023 07:45-0400 Diastolic Blood Pressure Non-Invasive [address] AMBROSE SANTOS MD [facility] 04-16-2023 07:45-0400 Heart rate 76 /min DR AMBROSE SANTOS MD [facility] 04-16-2023 07:45-0400 Reason For Taking VItal Signs DR AMBROSE SANTOS MD [facility] 04-16-2023 07:45-0400 Respiratory rate 16 /min DR AMBROSE SANTOS MD [facility] 04-16-2023 07:45-0400 Systolic Blood Pressure Non-Invasive [address] AMBROSE SANTOS MD [facility] 04-16-2023 04:35-0400 Body temperature 98.24 [degF] DR AMBROSE SANTOS MD [facility] 04-16-2023 04:35-0400 Diastolic Blood Pressure Non-Invasive [address] AMBROSE SANTOS MD [facility] 04-16-2023 04:35-0400 Heart rate 81 /min DR AMBROSE SANTOS MD [facility] 04-16-2023 04:35-0400 Respiratory rate 16 /min DR AMBROSE SANTOS MD [facility] 04-16-2023 04:35-0400 Systolic Blood Pressure Non-Invasive [address] AMBROSE SANTOS MD [facility] 04-15-2023 19:00-0400 Heart rate 78 /min DR AMBROSE SANTOS MD [facility] 04-15-2023 19:00-0400 Reason For Taking VItal Signs DR AMBROSE SANTOS MD [facility] 04-15-2023 16:48-0400 Heart rate 75 /min DR AMBROSE SANTOS MD [facility] 04-14-2023 16:39-0400 Body height [address] AMBROSE SANTOS MD [facility] 04-14-2023 16:39-0400 Body weight 55.[address] AMBROSE SANTOS MD [facility] 04-14-2023 16:39-0400 Body weight 22.76 kg/m2 DR AMBROSE SANTOS MD [facility] 04-14-2023 16:34-0400 Heart rate 85 /min DR AMBROSE SANTOS MD [facility] 04-14-2023 16:17-0400 Heart rate 74 /min DR AMBROSE SANTOS MD [facility] 04-14-2023 15:24-0400 Body temperature 97.34 [degF] DR AMBROSE SANTOS MD [facility] 04-14-2023 15:20-0400 Respiratory Rate - Anes 16 br/min DR AMBROSE SANTOS MD [facility] 04-14-2023 15:15-0400 Respiratory Rate - Anes 13 br/min DR AMBROSE SANTOS MD [facility] 04-14-2023 15:10-0400 Respiratory Rate - Anes 12 br/min DR AMBROSE SANTOS MD [facility] 04-14-2023 14:45-0400 Body temperature 96.8 [degF] DR AMBROSE SANTOS MD [facility] 04-14-2023 11:38-0400 Body height [address] AMBROSE SANTOS MD [facility] 04-14-2023 11:38-0400 Body temperature 97.52 [degF] DR AMBROSE SANTOS MD [facility] 04-14-2023 11:38-0400 Body weight 55.[address] AMBROSE SANTOS MD [facility] 03-16-2023 10:00-[address] AMBROSE SANTOS MD [facility] 03-16-2023 10:00-[address] AMBROSE Morris [facility] 03-16-2023 10:00-0400 Body height [address] AMBROSE SANTOS MD [facility] 03-16-2023 10:00-0400 Body weight 55.[address] AMBROSE SANTOS MD [facility] 03-16-2023 10:00-0400 Body weight 22.76 kg/m2 DR AMBROSE SANTOS MD [facility] 03-16-2023 10:00-0400 Diastolic Blood Pressure Non-Invasive [address] AMBROSE SANTOS MD [facility] 03-16-2023 10:00-0400 Heart rate 82 /min DR AMBROSE SANTOS MD [facility] 03-16-2023 10:00-0400 Respiratory rate 16 /min DR AMBROSE SANTOS MD [facility] 03-16-2023 10:00-0400 Systolic Blood Pressure Non-Invasive [address] AMBROSE SANTOS MD [facility] 02-11-2022 09:34-0400 Diastolic blood pressure 68 mm[Hg] Gunner Stevens MD Work Phone: [facility] 02-11-2022 09:34-0400 Systolic blood pressure 118 mm[Hg] Gunner Stevens MD Work Phone: [facility] 02-11-2022 09:03-0400 Body height 157.5 cm Gunner Stevens MD Work Phone: [facility] 02-11-2022 09:03-0400 Body weight 57.15 kg Gunner Stevens MD Work Phone: [facility] 01-23-2022 18:09-0400 Diastolic blood pressure 76 mm[Hg] Dr. Dieter Damon Work Phone: [facility] Work Phone: 01-23-2022 18:09-0400 Systolic blood pressure 168 mm[Hg] Dr. Dieter Damon Work Phone: [facility] Work Phone: 01-23-2022 07:55-0400 Body height 162.[address] Dieter Damon Work Phone: [facility] Work Phone: 01-23-2022 07:55-0400 Body mass index (BMI) [Ratio] 21.8 kg/m2 Dr. Dieter Damon Work Phone: [facility] Work Phone: 01-23-2022 07:55-0400 Body temperature 98.2 [degF] Dr. Dieter Dmaon Work Phone: [facility] Work Phone: 01-23-2022 07:55-0400 Body weight 57.[address] Dieter Damon Work Phone: [facility] Work Phone: 01-23-2022 07:55-0400 Heart rate 75 /min Dr. Dieter Damon Work Phone: [facility] Work Phone: 01-23-2022 07:55-0400 Respiratory rate 16 /min Dr. Dieter Damon Work Phone: [facility] Work Phone: 01-23-2022 07:55-0400 SaO2% (BldA) [Mass fraction] 97 % Dr. Dieter Damon Work Phone: [facility] Work Phone: Encounters Encounter Date Encounter Type Care Provider Facility Start: 01-23-2025 End: 01-23-2025 ambulatory Jerel Benson MD Work Phone: [facility] Work Phone: Start: 01-23-2025 End: 01-23-[address] Jerel Benson MD -Outpatient Breast Imaging Work Phone: Start: 01-23-2025 End: 01-23-2025 ambulatory Jerel Benson Facility:[facility] Start: 12-27-2024 End: 12-27-2024 ambulatory MICHELLE ARSHAD MD [facility] Start: 12-23-2024 End: 12-23-2024 ambulatory Jerel Benson MD Work Phone: [facility] Work Phone: Start: 12-23-2024 End: 12-23-[address] Jerel Benson MD -Laboratory [facility] Start: 12-23-2024 End: 12-23-2024 ambulatory Jerel Benson Facility:[facility] Start: 04-17-2023 End: 05-06-2023 ambulatory SOLA RAO PA-C Facility:B Start: 04-17-2023 End: 05-06-2023 Admission to same day surgery center SOLA RAO PA-C [facility] Start: 04-14-2023 End: 04-16-[address] AMBROSE SANTOS MD Facility:[facility] Start: 04-14-2023 End: 04-16-[address] AMBROSE SANTOS MD [facility] Start: 03-16-2023 End: 03-17-2023 ambulatory BERONICA VILLASENOR DO Facility:[facility] Start: 03-16-2023 End: 03-16-[address] AMBROSE SANTOS MD [facility] Start: 02-19-2023 ambulatory DIETER Lenz ility:[facility] Start: 01-20-2023 End: 01-20-2023 ambulatory [facility] Work Phone: Start: 01-20-2023 End: 01-20-2023 Patient encounter procedure [facility]-Outpatient Breast Imaging Start: 01-13-2023 End: 01-13-2023 ambulatory [facility] Work Phone: Start: 01-13-2023 End: 01-13-2023 Patient encounter procedure [facility]-Outpatient Bone Densitometry Start: 12-31-2022 Telephone encounter Gunner Stevens MD Work Phone: OB/Gynecology Comment on above: Orders Start: 07-14-2022 End: 07-14-2022 ambulatory [facility] Work Phone: Start: 07-14-2022 End: 07-14-2022 Patient encounter procedure [facility]ol[facility] Start: 02-11-2022 End: 02-11-2022 Patient encounter procedure Gunner Stevens MD Work Phone: OB/Gynecology Comment on above: Encounter for gyneco logical examination (general) (routine) without abnormal findings (Primary Dx) Start: 02-11-2022 End: 02-11-2022 Patient encounter status Gunner Stevens MD Work Phone: OB/Gynecology Start: 01-27-2022 End: 01-27-[address] Dieter Damon Work Phone: [facility] Start: 01-23-2022 End: 01-23-[address] Dieter Damon Work Phone: [facility] Start: 01-10-2022 End: 01-10-2022 Patient encounter procedure [facility]-Outpatient Breast Imaging Start: 11-11-2021 End: 11-11-2021 Patient encounter procedure [facility]-MRI - [facility] Start: 09-26-2020 End: 09-26-2020 Patient encounter procedure NATALEE KEITH [facility] Start: 08-31-2020 End: 08-31-2020 Patient encounter procedure NATALEE KEITH [facility] Procedures Date Procedure Procedure Detail Performing Clinician Start: 01-23-2025 Screening mammography C abby Benson MD Work Phone: Start: 12-23-2024 Vitamin D, 25-hydrox y measurement [...] 04-03-2023 Influenza vaccination INFLUENZA (Sea son Ended) [facility] Start: 08-03-2022 ADVANCE DIRECTIVE DISCUSSION ADVANCE DIRECTIVE DISCUSSION [facility] Start: 08-03-2022 DEPRESSION ASSESSMENT DEPRESSION ASS ESSMENT [facility] Start: 04-03-2022 Influenza vaccination INFLUENZA (#1) [facility] Start: 12-25-2021 COVID-19 VACCINE (5 - Booster for Pfizer series) COVID-19 VACCINE (5 - Booster for Pfizer series) [facility] Start: 08-03-2021 ADVANCE DIRECTIVE DISCUSSION ADVANCE DIRECTIVE DISCUSSION [facility] Start: 06-05-2018 DIABETES SCREEN DIABETES SCREEN [facility] Start: 10-22-2007 PNEUMOCOCCAL: 65+ (1 - PCV) PNEUMOCOCCAL: 65+ (1 - PCV) [facility] [facility] Start: 1992 SHINGRIX VACCINE (1 of 2) PERERA GRIX VACCINE (1 of 2) [facility] Start: 1961 Urine microalbumin profile DTAP,TDAP ,TD (1 - Tdap) [facility] Start: 1954 [facility] SCREENING [facility] Immunizations Immunization Date Immunization Notes Care Provider Fa atshaty 04-25-2022 influenza virus vacc ine, unspecified formulation DR AMBROSE SANTOS MD [facility] 10-30-2021 SARS-CoV-2 mRNA (ccaotdfbvwf-czav-vrqjfv e) vaccine DR AMBROSE SANTOS MD [facility] 04-27-2021 SARS-CoV-2 mRNA (tozinameran) vaccine DR AMBROSE SANTOS MD [facility] 03-11-[address] AMBROSE SANTOS MD [facility] 01-04-[address] AMBROSE SANTOS MD [facility] 09-26-2020 COVID-19 vaccine, ag e 12+ yr (PFIZER-BIONTECH - PURPLE TOP) Gunner Stevens MD Work Phone: [facility] 08-31-2020 COVID-19 vaccine, ag e 12+ yr (PFIZER-BIONTECH - PURPLE TOP) Gunner Stevens MD Work Phone: [facility] 04-25-2020 influenza virus vacc ine, unspecified formulation DR AMBROSE SANTOS MD [facility] 05-13-2019 influenza virus vacc ine, unspecified formulation DR AMBROSE SANTOS MD [facility] 05-13-2019 pneumococcal polysaccharide vaccine, [address] AMBROSE SANTOS MD [facility] 05-10-2018 influenza virus vacc ine, unspecified formulation DR AMBROSE SANTOS MD [facility] 06-02-2017 influenza virus vacc ine, unspecified formulation DR AMBROSE SANTOS MD [facility] 06-19-2016 influenza virus vacc ine, unspecified formulation DR AMBROSE SANTOS MD [facility] 05-03-[address] Barbara SANTOS MD [facility] 04-27-2015 influenza virus vacc ine, unspecified formulation DR AMBROSE SANTOS MD [facility] 12-18-2014 pneumococcal conjuga te vaccine, [address] AMBROSE SANTOS MD [facility] 05-03-2014 zoster vaccine, live DR CAROLINA SANTOS MD [facility] Payers Date Payer Category Payer Self-pay [id number] 2023 Medicare [id number] 2014 Medicare [id number] 2014 Medicare BCBS MEDICARE OO S ANTHEM BCBS MEDICARE PPO OOS [id number] 2014-Present [phone] [address] [place] [address] PPO [id number] 2014 Medicare BCBS MEDICARE OO S ANTHEM BCBS MEDICARE PPO OOS [id number] 2014-Present [phone] [address] [place] [id number] PPO [id number] 1940 Unknown [id number] 1940 Unknown [id number] 1940 Unknown [id number] 1940 Unknown [id number] 1940 Unknown [id number] 1940 Unknown [id number] Medicare [id number] Unknown [id number] Unknown [id number] Social History Date Type Detail Facility Start: 10-30-2021 End: 01-23-2022 Tobacco smoking status ILIS Unknown if ever smoked [facility] Start: 1940 Sex Assigned At Female [facility] Start: 06-02-2014 End: 01-23-2022 Tobacco smoking status ILIS Never smoked tobacco [facility] Start: 06-02-2014 Tobacco use and exposure Smokeless tobacco non-user [facility] Start: 02-11-2022 Alcohol intake Ex-drinker (finding) [facility] Start: 06-02-2014 Tobacco Comment social smoked in the past [facility] Start: 1940 Sex Assigned At Not on file [facility] Sex Assigned At Sex [facility] Functional Status Date Assessment Result Facility 04-17-2023 [...] step-to pattern with rail. FOTO Score: 65/100 [facility] 04-16-2023 Functional Status Nurse Nabila russ q2hrs Performed Other: 7AM-12PM [facility] 04-16-2023 Functional Status [address] [facility] 04-16-2023 Functional Status Room check performed [facility] 04-15-2023 Functional Status [facility] 04-15-2023 Functional Status Min A [address] [facility] 04-15-2023 Functional Status [facility] 04-15-2023 Functional Status Supervised [facility] 04-15-2023 Functional Status Single level home [facility] 04-14-2023 Functional Status [facility] 04-14-2023 Functional Status ice chips and sips take n [facility] 04-14-2023 Functional Status None [facility] Mental Status Date Assessment Result Facility 04-16-2023 Mental Status Oriented x 4 [facility] 04-16-2023 Mental Status Oriented x 4 [facility] 04-15-2023 Mental Status [facility] Clinical Notes 02-11-2022 to 04-16-2023 Telephone Encounter - Tala Corbin RN - 12/31/2022 2:11 PM EDTTelephone Encounter - Lisbet Schafer RN - 12/31/2022 9:52 AM Jaiden Stevens MD - 02/11/2022 9:02 AM EDT Note Date & Type Note Facility 04-16-2023 Note Discharge Instructions Thank you for allowing Sarah to assist you with your healthcare needs. The following is important discharge information regarding your hospital visit. Your Care Team [facility] Your Diagnosis Hyperlipidemia Osteoarthritis Post-operative nausea and vomiting What to do next Scheduled Follow-Up Appointments Appointment Type When Where Contact InformationPT Outpatient Evaluation 04/17/2023 11:00 AM EDT [facility] [phone] Follow Up Appointments Follow Up with SOLA RAO PA-C, Orthopedic When 04/27/2023 03:15 PM EDT Why: This is your post-op appointment. Follow-up as scheduled. Where: [facility] [address] [place] [id number]- Follow Up with [facility] When 04/17/2023 11:00 AM EDT Why: This is your first physical therapy appointment. Follow-up as scheduled. Where: [address] [place] [phone]- [phone] The Following Activity and Diet Have Been [...] weeks postoperatively for DVT prophylaxis. Pickup at [facility]/pharmacy #[id number] New famotidine (Pepcid 20 mg oral tablet) 1 tab(s) by mouth Once a day Pickup at [facility]/pharmacy #[id number] Unchanged atorvastatin (atorvastatin 10 mg oral tablet) [...] tab(s) by mouth Every day Pharmacy Information [facility]/pharmacy #[id number]: [address], [place] [id number] [phone] Please take this list to your next [...] FOR SIGNS OF INFECTION: call the office ([phone]) if experencing any of the following: (Usually [...] on your follow up instructions. Form: 338A ([id number]) R: 12/07 Additional Information VACCINATE! IT SAVES LIVES! Members of the community who have not yet received the COVID-19 vaccine and would like to receive it can visit one of [facility] vaccine clinics. There are many vaccine clinic locations within the [facility]. For locations and available times, please visit [email or web address].[place].gov/. It is important to note that some COVID mobile vaccine clinics are held outdoors and may be canceled in rainy or stormy conditions. To learn more about pediatric vaccinations (ages 5-11), we invite you to visit the [facility] webpage. [email or web address]-Frque-Vwjtpmxzhbw-[email or web address] wlyd-Fzkkr-[email or web address].html To learn more about the COVID-19 vaccine, we invite you to visit the CDC website for a list of frequently asked questions.https://www.cdc.gov/cor onavirus/2019-ncov/vaccines/faq.h tml [facility] Patient Portal Access Instructions: Stay connected with your healthcare team and access your personal medical information anytime with the [facility] Patient Portal. Please follow the directions below to create your [facility] account: 1.Access the email account you provided upon registration to the hospital/physician office.2.Look for an invitation email from [facility].3.Open the email and access the invitation link: Accept Invitation to [facility].4.Fill in the required ruth to create your account. To access your account, visit [employer]/[facility] Systems[facility]Chart. Click the blue button labeled Access Patient [...] you will allow to register on the [facility] Patient Portal for access to your information. You can also access the [facility] Patient Portal on the [facility] Anywhere theo. Simply click on Patient Portal and then log into your account. If you would like to receive a full copy of your medical records, please contact the [facility] Medical Records Department by calling [phone], Thursday through Thursday between 8 a.m. and [...] Call your local pharmacy or go to http://[employer] Travel Guide/2C8Ij0y to find one close to you.3.Make use of household items: Use cat litter or old coffee grounds to dispose medications if other options are not available. Mix your drugs with these household products, seal them in an airtight container and throw it into the garbage. Call [facility]: [phone] to be sure your drugs can be [...] a CHART COPY. Signatures Patient Education Materials [facility] - [facility] Post-op Instruction 03/2017 ([id number]) Medication Leaflets My discharge plan and instructions have been reviewed and explained to me and ICHERYL LORRAINE G understand my current condition and have read and understand these discharge instructions. I have received a written copy of the plan/instructions. If I have questions, I am aware that I should contact my doctor. Patient/Center Sales And Service Associate Signature: Date/Time: Relationship to Patient: ____ Witness Name/Signature: Date/Time: [facility] 04-16-2023 Hospital Discharg e instructions Patient Education 04/16/2023 07:41:45 5 - [facility] Post-op Instruction 03/2017 ([id number]) [facility] Post-operative Instructions PLEASE FOLLOW [facility] POST-OP INSTRUCTIONS GIVEN WATCH FOR SIGNS OF INFECTION: call the office ([phone]) if experencing any of the following: (Usually [...] on your follow up instructions. Form: 338A ([id number]) R: 12/07 Follow Up Care 02/05/2023 15:12:20 With:[facility] Address: [address] [place] [phone] When:04/17/2023 11:00:00 Comments:This is your first physical therapy appointment. Follow-up as scheduled. With:SOLA RAO PA-C, Orthopedic Address: [facility] [address] [place] [phone]- When:04/27/2023 15:15:00 Comments:This is your post-op appointment. Follow-up as scheduled. [facility] 04-16-2023 Note Date of Service April 16, [...] would like her medications E scribed to [facility] in [facility]. Upon discharge she will contact her office with any concerns or questions. I have reviewed the [place] Automated Rx Reporting System (OARRS) report for [...] SOLA RAO PA-C on 04/16/2023 07:41 AM [facility] 04-15-2023 Note Date of Service April [...] possible discharge tomorrow. I have reviewed the [place] Automated Rx Reporting System (OARRS) report for [...] SOLA RAO PA-C on 04/15/2023 07:57 AM [facility] 04-14-2023 Note ORIGINAL EXAMINATION: ONE XRAY [...] 04/14/2023 4:12:15 PM Ordering Provider: AMBROSE SANTOS [facility] 04-14-2023 Note ORIGINAL Images acquired, not reported on this accession number. [facility] 04-14-2023 Anesthesiology Consult note Patient: MICHAELA LUNA Age: 82 years Sex: Female : 1940 Associated Diagnoses: None Author: ESTEPHANIE ORO SHOULDER JOINER-HYDRAULIC HAMMER OPERATOR Assessment Postanesthesia assessment Vitals: Vital signs from [...] by ESTEPHANIE ORO on 04/14/2023 03:26 PM [facility] 04-14-2023 Anesthesiology Consult note Patient: MICHAELA [...] Mother Father Procedure history: Total hip replacement ([id number]) in 2006 at 65 Years. Comments: 03/16/2023 10:38 TURNER Hale LEFT Colonoscopy ([id number]). ORIF - Open reduction and internal fixation of fracture ([id number]). Comments: 03/16/2023 10:39 TURNER Hale RIGHT ELBOW Tubal ligation ([id number]). Social History Social & Psychosocial Habits Alcohol [...] Signs(last 24 hrs) Last Charted Heart Rate Najdrgvow89 bpm (SEP 12 14:15) Resp Rate 18 br/min (SEP 12 11:38) TRM076 mmHg (APR 12 14:10) DBP59 mmHg (SEP 12 14:10) Measurements from flowsheet : Measurements 04/14/2023 11:38 EDT Height 156 cm Admission Weight 55.4 kg [place] Body Weight 48.76 kg Admission Body Mass [...] Irl - Additive IRRIGATION CHG 0.05% IRRISEPT [id number] SN - Irl - Additive BETADINE SN [...] Upper Body 04/14/2023 14:18 EDT SN - SC - Route of Administration Local SN - SC - Route of Administration Local 04/14/2023 14:18 [...] Surgeon SN - CAt - Role Performed HYDRAULIC HAMMER OPERATOR SN - CAt - Role Performed Boiler Plant Operator 1 SN - CAt - Role Performed Scrub 1 SN - CAt - Role Performed Boat Hoist Operator 1 SN - CAt - Role Performed Thread Inspector SN - CAt - Role Performed Physician Cash Applications Manager 04/14/2023 12:03 EDT SN - Preop - [...] Height 156 cm Admission Weight 55.4 kg [place] Body Weight 48.76 kg Admission Body Mass [...] Quadrants Present Skin Temperature Warm Skin Description [place] Skin Integrity Intact Mucous Membrane Color [place] Skin Moisture General Dry Neurological Symptoms Numbness [...] Person #1 We May Share WEST IRIZARRY [phone] Designated Person #1 Relationship Daughter Privacy Restrictions Requested None Status N/A Sensory Deficits None Sleep Apnea Snore Yes Sleep Apnea Tired Yes Sleep Apnea Obstruction No Sleep Apnea Pressure No Sleep Apnea BMI No Sleep Apnea Age Yes Sleep Apnea Neck No Sleep Apnea Gender No Sleep Apnea Score 3 Diagnosed With Sleep Apnea No Advanced Directives Yes Advance Directive Type [place] Durable Power of Router Operator Pin for [place], [place] Declaration (Living Will) Advance Directive Location [...] Method Explanation, Printed materials Preferred Spoken Language Vietnamese Preferred Written Language Vietnamese Teaching Evaluation Verbalizes/Nonverbally indicates understanding Total Joint Book Given Yes Safety Brochure Information Reviewed Unable to complete Sarah Slater Video Viewed No Information Given by [...] Allergies Yes Anesthesia Extension Set Applied Yes Director Digital Communications On Yes Consent Form Signed Yes Patient [...] Room 04/14/2023 11:24 . Assessment and Plan [place] Society of Anesthesiologists (ASA) physical status classification: Class III. Anesthetic Preoperative Plan Anesthetic technique: Spinal. Risks discussed: discussed narcotics, sedation and n/v. pt would like to get the least possible, but is very nervous. Informed consent: signed by patient. Digitally Signed by ESTEPHANIE OROHYDRAULIC HAMMER OPERATOR on 04/14/2023 02:29 PM [facility] 12-31-2022 Miscellaneous Notes Faxed Patient requesting mammogram order be faxed to [facility]. Order to to sign. Patient aware this will be sent to [facility] today. No need to call her back. Lisbet Schafer RN documented in this encounter [facility] 02-11-2022 History of Presen t illness Narrative Michaela is a 81 year old who presents for an annual gynecologic exam without complaints. Postmenopausal: yes HRT use: No. Last Pap: normal HPV: negative History of abnormal pap: No Last mammogram: 2021 normal OB History T0 L1 SAB0 IAB0 Ectopic0 Multiple0 Live Births0 Junior Engineer History LMP: Postmenopausal Age at Menarche: Age at First : Age at Menopause: Junior Engineer History Comments: Sexual Activity: Not Currently; No [...] external genitalia normal, normal Bartholin's glands, urethra, Lindy's glands, no vulvar lesions, no cervical lesions, [...] Gunner Stevens MD documented in this encounter [facility] Chief complaint+Reason for visit Narrative Reason for Visit Macrocytosis without anemia Vertigo [facility] Work Phone: Evaluation + Plan note Future Appointments [facility] Evaluation + Plan note Future Appointments Appointment Date:04/17/2023 11:00:00 AM Scheduled Provider: Location:[facility] Appointment Type:PT Outpatient Evaluation [facility] Evaluation noteNo assessment information available [facility] Work Phone: Evaluation note* Diagnosis Onset Date Resolution Status Macrocytosis without anemia acute Vertigo chronic [facility] Work Phone: Evaluation note* Diagnosis Encounter for gynecological examination (general) (routine) without abnormal findings- [facility] No data available for this section [facility] Hospital Discharge instructions No data available for this section [facility] Progress note No data available for this section [facility] Reason for referral (narrative)No reason for [facility] Work [facility]: Summary Purpose Family History [...] Yes October 30, 2021 8:37am Power of Router Operator Pin Yes October 30 8:37am Advance Directive Response Recorded Date/ Time Living Will Yes October 30, 2021 7:37am Power of Router Operator Pin Yes October 30 7:37am Chief Complaint and Reason for Visit Chief Complaint DIZZINESS Chief Complaint DIZZINESS SCREENING Chief Complaint DISORDERS OF BONE DE NSITY Chief Complaint DISORDERS OF BONE DE NSITY SCREENING Chief Complaint Admit Date SCREENING January 23, 2025 10:0 6am Additional Source Comments INFORMATION SOURCE (unrecogn ized section and content) DATE CREATED AUTHOR 10/02/2020 Lalito Moreno [facility] DATE CREATED AUTHOR AUTHOR'S ORGANIZ ATION 02/20/2023 [facility] DATE CREATED AUTHOR AUTHOR'S ORGANIZ ATION 05/10/2023 [facility] ([place] DATE CREATED AUTHOR AUTHOR'S ORGANIZ ATION 12/30/2024 [facility] DATE CREATED AUTHOR AUTHOR'S ORGANIZ ATION 01/28/2025 [facility] Goals (unrecognized section and content) Goals may [...] or prosecute any alcohol or drug abuse patient.[facility] the event this information is protected by the Federal Confidentiality of Alcohol and Drug Abuse Patient Records regulations: The Federal rules restrict any use of the information to criminally investigate or prosecute any alcohol or drug abuse patient.[facility] Care Teams (unrecognized sec tion and content) Dining Room Server Relationship Specialty Start Date End Date Dieter Damon MD PCP - General Family Practice 06/02/14 Dining Room Server Relationship Specialty Start Date End Date Dieter Damon MD PCP - General Family Medicine 06/02/14 Team Status: Active Member Role Status Dates Dr. Dieter Damon MD Family Provider Active Beronica Villasenor DO Primary Care Provider Active Team Status: Inactive Member Role Status Dates Beronica Villasenor , Primary Care Provi carley, Attending Provider, Referring Provider Active Team Status: Inactive Member Role Status Dates Beronica Villasenor DO Primary Care Provider Active Dr. Gunner Stevens MD Attending Provider, Referring Provider Active Team Status: Active Member Role Status Dates Dr. Dieter Damon MD Family Provider Active Jerel Benson [...] December 23, 2024 End: December 23, 2024 Team Status: Active Member Role Status Mehnaz Benson MD Primary Care Provider Active Team Status: Inactive Member Role Status Mehnaz Benson MD Primary Care Provider Active St art: January 23, 2025 End: January 23, 2025 Jerel Benson MD Attending Provider Active Start : January 23, 2025 End: January 23, 2025 Jerel Benson MD Referring Provider Active Start : January 23, 2025 End: January 23, 2025 Reason for Visit (unrecogniz ed section and [...] BE BASED ON THE PRIMARY CLINICAL RECORDS. [facility]. provides no warranty or guarantee of the accuracy or completeness of information in this document.
[2025-07-14 12:56] LABS: Cholesterol 312 mg/dL (<=200); Low Density Lipoprotein Calc. 180 mg/dL; Triglycerides 113 mg/dL; Very Low Density Lipoprotein 23 mg/dL (5-40); cholesterol:hdl ratio screen 2.76
== END | disposition home or self-care (01) ==
LOC: MTLAB 10:31
PROVIDERS: PCP Family Medicine; Referring Provider Family Medicine; Visit Provider Family Medicine
DX: E78.5 Hyperlipidemia, unspecified (principal); E11.9 Type 2 diabetes mellitus without complications
CPT/HCPCS: 36415; 80061; 83036